=== PATIENT | female | born 1975 | race Caucasian/White ===

== ENCOUNTER → 2016-09-26 | Outpatient (CLI) | payer MEDICARE, OTHER ==
--- NOTE | 2016-09-29 07:22 | MM ---
Reason for exam: additional evaluation requested from prior study. Baseline mammogram. History: Family history of breast cancer in aunt at age 30. Physical Findings: Nurse did not find any significant physical abnormalities on exam. MG 3D Diag Mammo W/Cad GINNA Bilateral CC and MLO view(s) were taken. The breast tissue is heterogeneously dense. This may lower the sensitivity of mammography. There is no discrete abnormality. These results were verbally communicated with the patient and result sheet given to the patient on 09/26/16. ASSESSMENT: Negative, BI-RAD 1 RECOMMENDATION: Routine screening mammogram of both breasts in 1 year. Manage patient on a clinical basis.
== END | disposition home or self-care (01) ==
LOC: RADMAMWWP 12:59
PROVIDERS: ATTEND Family Medicine
DX: N64.52 Nipple discharge (principal)
CPT/HCPCS: G0204; G0279

== ENCOUNTER 2017-01-01 11:35 | Inpatient (IN) | payer MEDICARE, OTHER ==
[2017-01-01] MEDS ORDERED: ACETAMINOPHEN IV (For NPO) 1,000 MG in EMPTY BAG 1 BAG IVPB STA (11:47)
[2017-01-01] MEDS ORDERED: ACETAMINOPHEN TAB 500 MG TAB PO STA (11:54)
[2017-01-01] MEDS ORDERED: ONDANSETRON 4 MG/2 ML VIAL IVP STA (11:55)
--- NOTE | 2017-01-01 11:57 | ED ---
General Adult HPI - General Chief complaint: Nausea/Vomiting/Diarrhea Stated complaint: vomiting, fever, lethargic Time Seen by Provider: 01/01/17 11:46 Source: patient, RN notes reviewed Mode of arrival: ambulatory Limitations: no limitations - History of Present Illness Initial comments: Patient is a 41-year-old female presents emergency room for evaluation. Patient states she's treated for urinary tract infection on 12/19/16 for urinary tract infection. Patient states she went to [facility]. Patient states she was recently placed on Bactrim. Patient states after 2 days of taking Bactrim she received a phone call from the hospital that they were giving her another antibiotic. Patient then states that she began taking Macrobid along with the Bactrim. Patient states she does not think the antibiotics are working. Patient states she's still feeling pressure in her bladder along with pain during urination. Patient states she woke up in the middle of the night abruptly with vomiting. Patient states that she is still continuing to have pressure in her bladder along with bilateral flank pain. Patient states she's been having hot flashes and chills. Patient states she feels like her face is on fire. Patient denies taking anything for fever or symptoms. Patient denies history of abdominal surgeries. Patient denies headache or dizziness. Patient denies chest pain or shortness of breath. Patient does states that she's had a productive cough over the past few weeks. Patient denies throat pain, ear pain , nasal congestion. Patient states she is up-to-date on her immunizations. - Related Data Home Medications Medication Instructions Recorded Confirmed Ibuprofen [Motrin] 800 mg PO Q8HR PRN 05/28/14 01/01/17 Docusate Sodium [Dok] 100 mg PO HS 01/01/17 01/01/17 Garcinia Cambogia 1 tab PO DAILY 01/01/17 01/01/17 Lisinopril [Zestril] 10 mg PO DAILY 01/01/17 01/01/17 Loratadine 10 mg PO DAILY 01/01/17 01/01/17 Mirabegron [Myrbetriq] 50 mg PO DAILY 01/01/17 01/01/17 Mucus Relief 400mg Tab 400 mg PO Q12H 01/01/17 01/01/17 Multivitamins, Thera [Multivitamin 1 tab PO DAILY 01/01/17 01/01/17 (formulary)] Nitrofurantoin Macrocrystal 100 mg PO BID 01/01/17 01/01/17 [Macrodantin] SUMAtriptan SUCCINATE [Imitrex] 100 mg PO Q3H PRN 01/01/17 01/01/17 Sertraline [Zoloft] 50 mg PO DAILY 01/01/17 01/01/17 Sinus Pe 1 tab PO Q4H PRN 01/01/17 01/01/17 Vitamin C/Biotin [Hair, Skin and 1 tab PO DAILY 01/01/17 01/01/17 Nails] Allergies Allergy/AdvReac Type Severity Reaction Status Date / Time cephalexin monohydrate Allergy Unknown Verified 01/01/17 11:59 [From Keflex] codeine Allergy Unknown Verified 01/01/17 11:59 tramadol Allergy Unknown Verified 01/01/17 11:59 Review of Systems ROS Statement: Those systems with pertinent positive or pertinent negative responses have been documented in the HPI. ROS Other: All systems not noted in ROS Statement are negative. Past Medical History Past Medical History: GERD/Reflux Additional Past Medical History / Comment(s): Ventral septal defect, overacitve bladder, sinus issues History of Any Multi-Drug Resistant Organisms: MRSA Date of last positivie culture/infection: 2012 MDRO Source:: buttocks Past Surgical History: No Surgical Hx Reported Past Psychological History: Depression Smoking Status: Never smoker Past Alcohol Use History: Occasional Past Drug Use History: None Reported General Exam - General Exam Comments Initial Comments: sitting in exam room, no acute distress. Limitations: no limitations General appearance: alert, in no apparent distress Head exam: Present: atraumatic, normocephalic, normal inspection Eye exam: Present: normal appearance ENT exam: Present: normal exam Neck exam: Present: normal inspection Respiratory exam: Present: normal lung sounds bilaterally. Absent: respiratory distress Cardiovascular Exam: Present: normal rhythm, tachycardia, normal heart sounds GI/Abdominal exam: Present: soft, normal bowel sounds. Absent: distended, tenderness, guarding, rebound, rigid Extremities exam: Present: normal inspection Back exam: Present: normal inspection Neurological exam: Present: alert, oriented X3, CN II-XII intact, normal gait Psychiatric exam: Present: normal affect, normal mood Skin exam: Present: warm, dry, intact, normal color. Absent: rash Course Vital Signs 01/01/17 01/01/17 11:39 13:43 Temperature 102.1 F H 100.6 F H Pulse Rate 114 H 87 Respiratory 20 18 Rate Blood Pressure 140/95 102/47 O2 Sat by Pulse 96 99 Oximetry EKG Findings - EKG Comments: EKG Findings:: sinus tachycardia, ventricular rate 102 bpm, IL interval 126 ms, QRS duration 88 ms, QT/QTc 354/461 ms Medical Decision Making - Medical Decision Making patient is a 41-year-old female presents emergency room for evaluation of vomiting, fever, bladder discomfort and bilateral flank pain. patient does have an elevated white count. Urinalysis within normal limits. Patient most likely develop pyelonephritis. Case discussed with Dr. Mendez. Dr. Mendez discussed case with Dr. Brito agreed to admit patient. patient initially started on Levaquin. When Dr. Mendez discussed case with Dr. Brito, he recommended Zosyn instead. - Lab Data Result diagrams: 01/01/17 12:15 01/01/17 12:15 Lab Results 01/01/17 01/01/17 01/01/17 Range/Units 12:15 12:15 12:15 WBC 15.1 H (3.8-10.6) k/uL RBC 3.93 (3.80-5.40) m/uL Hgb 12.3 (11.4-16.0) gm/dL Hct 35.7 (34.0-46.0) % MCV 90.8 (80.0-100.0) fL MCH 31.4 (25.0-35.0) pg MCHC 34.5 (31.0-37.0) g/dL RDW 12.7 (11.5-15.5) % Plt Count 364 (150-450) k/uL Neutrophils % 94 % Lymphocytes % 2 % Monocytes % 3 % Eosinophils % 0 % Basophils % 0 % Neutrophils # 14.1 H (1.3-7.7) k/uL Lymphocytes # 0.4 L (1.0-4.8) k/uL Monocytes # 0.5 (0-1.0) k/uL Eosinophils # 0.0 (0-0.7) k/uL Basophils # 0.0 (0-0.2) k/uL PT (9.0-12.0) sec INR (<1.1) APTT (22.0-30.0) sec Sodium 135 L (137-145) mmol/L Potassium 4.0 (3.5-5.1) mmol/L Chloride 102 (98-107) mmol/L Carbon Dioxide 23 (22-30) mmol/L Anion Gap 10 mmol/L BUN 11 (7-17) mg/dL Creatinine 0.70 (0.52-1.04) mg/dL Est GFR (MDRD) Af Amer >60 (>60 ml/min/1.73 sqM) Est GFR (MDRD) Non-Af >60 (>60 ml/min/1.73 sqM) Glucose 118 H (74-99) mg/dL Plasma Lactic Acid Vik (0.7-2.0) mmol/L Calcium 9.1 (8.4-10.2) mg/dL Total Bilirubin 0.8 (0.2-1.3) mg/dL AST 22 (14-36) U/L ALT 30 (9-52) U/L Alkaline Phosphatase 69 (38-126) U/L Total Creatine Kinase 137 H (30-135) U/L CK-MB (CK-2) 1.2 (0.0-2.4) ng/mL CK-MB (CK-2) Rel Index 0.9 Troponin I <0.012 (0.000-0.034) ng/mL Total Protein 6.9 (6.3-8.2) g/dL Albumin 3.6 (3.5-5.0) g/dL Urine Color Urine Appearance (Clear) Urine pH (5.0-8.0) Ur Specific [place] (1.001-1.035) Urine Protein (Negative) Urine Glucose (UA) (Negative) Urine Ketones (Negative) Urine Blood (Negative) Urine Nitrite (Negative) Urine Bilirubin (Negative) Urine Urobilinogen (<2.0) mg/dL Ur Leukocyte Esterase (Negative) Urine HCG, Qual (Not Detectd) Influenza Type A RNA (Not Detectd) Influenza Type B (PCR) (Not Detectd) 01/01/17 01/01/17 01/01/17 Range/Units 12:15 12:15 12:15 WBC (3.8-10.6) k/uL RBC (3.80-5.40) m/uL Hgb (11.4-16.0) gm/dL Hct (34.0-46.0) % MCV (80.0-100.0) fL MCH (25.0-35.0) pg MCHC (31.0-37.0) g/dL RDW (11.5-15.5) % Plt Count (150-450) k/uL Neutrophils % % Lymphocytes % % Monocytes % % Eosinophils % % Basophils % % Neutrophils # (1.3-7.7) k/uL Lymphocytes # (1.0-4.8) k/uL Monocytes # (0-1.0) k/uL Eosinophils # (0-0.7) k/uL Basophils # (0-0.2) k/uL PT 12.1 H (9.0-12.0) sec INR 1.2 (<1.1) APTT 24.9 (22.0-30.0) sec Sodium (137-145) mmol/L Potassium (3.5-5.1) mmol/L Chloride (98-107) mmol/L Carbon Dioxide (22-30) mmol/L Anion Gap mmol/L BUN (7-17) mg/dL Creatinine (0.52-1.04) mg/dL Est GFR (MDRD) Af Amer (>60 ml/min/1.73 sqM) Est GFR (MDRD) Non-Af (>60 ml/min/1.73 sqM) Glucose (74-99) mg/dL Plasma Lactic Acid Vik 1.2 (0.7-2.0) mmol/L Calcium (8.4-10.2) mg/dL Total Bilirubin (0.2-1.3) mg/dL AST (14-36) U/L ALT (9-52) U/L Alkaline Phosphatase (38-126) U/L Total Creatine Kinase (30-135) U/L CK-MB (CK-2) (0.0-2.4) ng/mL CK-MB (CK-2) Rel Index Troponin I (0.000-0.034) ng/mL Total Protein (6.3-8.2) g/dL Albumin (3.5-5.0) g/dL Urine Color Yellow Urine Appearance Clear (Clear) Urine pH 8.0 (5.0-8.0) Ur Specific [place] 1.016 (1.001-1.035) Urine Protein Trace H (Negative) Urine Glucose (UA) Negative (Negative) Urine Ketones Negative (Negative) Urine Blood Negative (Negative) Urine Nitrite Negative (Negative) Urine Bilirubin Negative (Negative) Urine Urobilinogen <2.0 (<2.0) mg/dL Ur Leukocyte Esterase Negative (Negative) Urine HCG, Qual (Not Detectd) Influenza Type A RNA (Not Detectd) Influenza Type B (PCR) (Not Detectd) 01/01/17 01/01/17 Range/Units 12:15 12:24 WBC (3.8-10.6) k/uL RBC (3.80-5.40) m/uL Hgb (11.4-16.0) gm/dL Hct (34.0-46.0) % MCV (80.0-100.0) fL MCH (25.0-35.0) pg MCHC (31.0-37.0) g/dL RDW (11.5-15.5) % Plt Count (150-450) k/uL Neutrophils % % Lymphocytes % % Monocytes % % Eosinophils % % Basophils % % Neutrophils # (1.3-7.7) k/uL Lymphocytes # (1.0-4.8) k/uL Monocytes # (0-1.0) k/uL Eosinophils # (0-0.7) k/uL Basophils # (0-0.2) k/uL PT (9.0-12.0) sec INR (<1.1) APTT (22.0-30.0) sec Sodium (137-145) mmol/L Potassium (3.5-5.1) mmol/L Chloride (98-107) mmol/L Carbon Dioxide (22-30) mmol/L Anion Gap mmol/L BUN (7-17) mg/dL Creatinine (0.52-1.04) mg/dL Est GFR (MDRD) Af Amer (>60 ml/min/1.73 sqM) Est GFR (MDRD) Non-Af (>60 ml/min/1.73 sqM) Glucose (74-99) mg/dL Plasma Lactic Acid Vik (0.7-2.0) mmol/L Calcium (8.4-10.2) mg/dL Total Bilirubin (0.2-1.3) mg/dL AST (14-36) U/L ALT (9-52) U/L Alkaline Phosphatase (38-126) U/L Total Creatine Kinase (30-135) U/L CK-MB (CK-2) (0.0-2.4) ng/mL CK-MB (CK-2) Rel Index Troponin I (0.000-0.034) ng/mL Total Protein (6.3-8.2) g/dL Albumin (3.5-5.0) g/dL Urine Color Urine Appearance (Clear) Urine pH (5.0-8.0) Ur Specific [place] (1.001-1.035) Urine Protein (Negative) Urine Glucose (UA) (Negative) Urine Ketones (Negative) Urine Blood (Negative) Urine Nitrite (Negative) Urine Bilirubin (Negative) Urine Urobilinogen (<2.0) mg/dL Ur Leukocyte Esterase (Negative) Urine HCG, Qual Not Detected (Not Detectd) Influenza Type A RNA Not Detected (Not Detectd) Influenza Type B (PCR) Not Detected (Not Detectd) - Radiology Data Radiology results: report reviewed, image reviewed Disposition Clinical Impression: Pyelonephritis Disposition: ADMITTED IP TO THIS [facility] Condition: Stable Referrals: Augustin Wasserman DO [Primary Care Provider] - 1-2 days Decision Date: 01/01/17
[2017-01-01] MEDS: SODIUM CHLORIDE 0.9% 500 ML IV SCH ×2 (12:22→12:23)
[2017-01-01 12:28] LABS: Appearance,Urine Clear (Clear); Bilirubin,Urine Negative (Negative); Glucose,Urine (UA) Negative (Negative); Ketones,Urine Negative (Negative); Leukocyte Esterase,Urine Negative (Negative); Nitrite,Urine Negative (Negative); Protein,Urine Trace (Negative); Specific Gravity,Urine 1.016 (1.001-1.035); UA Billing (MACRO vs. MICRO) CHEM; Urobilinogen,Urine <2.0 mg/dL (<2.0)
[2017-01-01 12:30] LABS: Basophils % (A) 0 %; CH 31.5; CHCM 34.8; Eosinophils % (A) 0 %; HCT 35.7 % (34.0-46.0); HDW 2.56; HGB 12.3 gm/dL (11.4-16.0); Luc # (Auto) 0.11; Luc % (Auto) 1; Lymphocytes # (A) 0.4 k/uL (1.0-4.8); Lymphocytes % (A) 2 %; MCH 31.4 pg (25.0-35.0); MCHC 34.5 g/dL (31.0-37.0); MCV 90.8 fL (80.0-100.0); Mean Platelet Volume 6.5; Monocytes # (A) 0.5 k/uL (0-1.0); Monocytes % (A) 3 %; Neutrophils # (A) 14.1 k/uL (1.3-7.7); Neutrophils % (A) 94 %; RBC 3.93 m/uL (3.80-5.40); RDW 12.7 % (11.5-15.5); WBC 15.1 k/uL (3.8-10.6); WBC (Perox) 15.58
[2017-01-01 12:39] LABS: ALT 30 U/L (9-52); AST 22 U/L (14-36); Alkaline Phosphatase 69 U/L (38-126); Anion Gap 10 mmol/L; Blood Urea Nitrogen 11 mg/dL (7-17); Calcium 9.1 mg/dL (8.4-10.2); Carbon Dioxide 23 mmol/L (22-30); Chloride 102 mmol/L (98-107); Glucose 118 mg/dL (74-99); Non-African American GFR(MDRD) >60 (>60 ml/min/1.73 sqM); Sodium 135 mmol/L (137-145); Total Bilirubin 0.8 mg/dL (0.2-1.3); Total Protein 6.9 g/dL (6.3-8.2)
[2017-01-01 12:41] LABS: INR 1.2 (<1.1)
[2017-01-01 12:47] LABS: Creatine Kinase 137 U/L (30-135)
[2017-01-01 12:48] LABS: Partial Thromboplastin Time 24.9 sec (22.0-30.0); Prothrombin Time 12.1 sec (9.0-12.0)
[2017-01-01 13:00] LABS: Creatine Kinase MB 1.2 ng/mL (0.0-2.4); Troponin I <0.012 ng/mL (0.000-0.034)
--- NOTE | 2017-01-01 13:16 | XR ---
EXAMINATION TYPE: XR abdomen acute w cxr DATE OF EXAM: 01/01/2017 1:03 PM COMPARISON: 05/28/2014 HISTORY: Abdominal pain TECHNIQUE: 4 views FINDINGS: Heart and mediastinum are normal. Lungs are clear. Bowel gas pattern is normal. There is no sign of i ntestinal obstruction or pneumoperitoneum. Fecal pattern is normal. There is no sign of a mass. There are no pathologic calcifications over the kidneys. IMPRESSION: Nonacute abdomen. Normal chest
[2017-01-01] MEDS ORDERED: LEVOFLOXACIN 500MG-D5W PMX 500 MG in DEXTROSE/WATER 1 100ML.BAG IVPB STA (13:32)
[2017-01-01] MEDS ORDERED: ONDANSETRON 4 MG/2 ML VIAL IVP PRN (13:44)
[2017-01-01] MEDS ORDERED: NALOXONE 0.4 MG/ML 1 ML VIAL IV PRN (13:44)
[2017-01-01] MEDS ORDERED: PIPERACILLIN-TAZOBACTAM 3.375 GM in DEXTROSE/WATER 1 50ML.BAG IVPB STA (13:46)
[2017-01-01] MEDS: SODIUM CHLORIDE 0.9% 1,000 ML IV SCH (14:53)
[2017-01-01] MEDS ORDERED: PSEUDOEPHEDRINE 30 MG TAB PO PRN (21:43)
[2017-01-01] MEDS: ACETAMINOPHEN TAB 325 MG TAB PO PRN (22:17)
[2017-01-01] MEDS: guaiFENesin 600 MG TABLET.ER PO SCH (22:19)
[2017-01-02] MEDS: SODIUM CHLORIDE 0.9% 1,000 ML IV SCH ×3 (01:15→18:34)
[2017-01-02 07:56] LABS: Basophils % (A) 0 %; CH 31.2; CHCM 32.9; Eosinophils # (A) 0.1 k/uL (0-0.7); Eosinophils % (A) 2 %; HCT 34.3 % (34.0-46.0); HDW 2.52; HGB 11.2 gm/dL (11.4-16.0); Luc # (Auto) 0.16; Luc % (Auto) 4; Lymphocytes # (A) 1.3 k/uL (1.0-4.8); Lymphocytes % (A) 33 %; MCH 31.1 pg (25.0-35.0); MCHC 32.6 g/dL (31.0-37.0); MCV 95.3 fL (80.0-100.0); Mean Platelet Volume 6.5; Monocytes # (A) 0.3 k/uL (0-1.0); Monocytes % (A) 8 %; Neutrophils # (A) 2.1 k/uL (1.3-7.7); Neutrophils % (A) 52 %; RDW 12.7 % (11.5-15.5); WBC (Perox) 4.06
[2017-01-02 08:08] LABS: ALT 34 U/L (9-52); AST 34 U/L (14-36); Alkaline Phosphatase 61 U/L (38-126); Anion Gap 5 mmol/L; Blood Urea Nitrogen 12 mg/dL (7-17); Calcium 8.4 mg/dL (8.4-10.2); Carbon Dioxide 28 mmol/L (22-30); Chloride 108 mmol/L (98-107); Glucose 114 mg/dL (74-99); Non-African American GFR(MDRD) >60 (>60 ml/min/1.73 sqM); Potassium 4.3 mmol/L (3.5-5.1); Sodium 141 mmol/L (137-145); Total Bilirubin 0.4 mg/dL (0.2-1.3); Total Protein 6.1 g/dL (6.3-8.2)
[2017-01-02] MEDS ORDERED: SERTRALINE 50 MG TAB PO SCH (09:00)
[2017-01-02] MEDS ORDERED: NITROFURANTOIN MONOHYD/M-CRYST 100 MG CAP PO SCH (09:00)
[2017-01-02] MEDS: PIPERACILLIN-TAZOBACTAM 3.375 GM in DEXTROSE/WATER 1 50ML.BAG IVPB SCH ×2 (09:04→15:59)
[2017-01-02] MEDS: guaiFENesin 600 MG TABLET.ER PO SCH ×2 (09:10→21:04)
[2017-01-02] MEDS: LORATADINE 10 MG TAB PO SCH (09:10)
[2017-01-02] MEDS: LISINOPRIL 10 MG TAB PO SCH (09:10)
[2017-01-02] MEDS: OXYBUTYNIN XL 5 MG TAB.ER.24 PO SCH (09:11)
[2017-01-02] MEDS: SERTRALINE 50 MG TAB PO SCH (09:11)
[2017-01-02] MEDS: SUMAtriptan SUCCINATE 50 MG TAB PO PRN ×2 (09:33→21:07)
[2017-01-02] MEDS: ENOXAPARIN 40 MG/0.4 ML SYRINGE SQ SCH (11:02)
[2017-01-02] MEDS ORDERED: RX INFO: IV CONTRAST WAS GIVEN 1 EACH MISC MISCELLANE PRN (11:12)
[2017-01-02] MEDS: IOHEXOL 350 MG/ML 25 ML BOTTLE (ORAL USE) PO PRN ×2 (12:04→13:10)
[2017-01-02 12:21] LABS: Appearance,Urine Clear (Clear); Bilirubin,Urine Negative (Negative); Glucose,Urine (UA) Negative (Negative); Ketones,Urine Negative (Negative); Leukocyte Esterase,Urine Negative (Negative); Nitrite,Urine Negative (Negative); Protein,Urine Negative (Negative); Specific Gravity,Urine 1.006 (1.001-1.035); UA Billing (MACRO vs. MICRO) CHEM; Urobilinogen,Urine <2.0 mg/dL (<2.0)
[2017-01-02] MEDS ORDERED: LEVOFLOXACIN 500MG-D5W PMX 500 MG in DEXTROSE/WATER 1 100ML.BAG IVPB SCH (14:00)
--- NOTE | 2017-01-02 14:11 | CT ---
EXAMINATION TYPE: CT abdomen pelvis w con DATE OF EXAM: 01/02/2017 1:55 PM HISTORY: abdominal pain with fever and vomiting. CT DLP: 3021.2mGycm Automated Exposure Control for Dose Reduction was Utilized. CONTRAST: CT scan of the abdomen and pelvis is performed with IV Contrast, patient injected with 100 mL of Omni paque 300. COMPARISON: Chest x-ray with acute abdominal series from yesterday. FINDINGS: Poor contrast bolus is seen making evaluation slightly suboptimal. LUNG BASES: Linear scarring or atelectasis in right lung base is present. Slightly elevated right hem idiaphragm is seen. LIVER/GB: No significant abnormality is appreciated. PANCREAS: No significant abnormality is seen. SPLEEN: No significant abnormality is seen. ADRENALS: No significant abnormality is seen. KIDNEYS: No significant abnormality is seen. BOWEL: Oral contrast reaches level of the mid transverse colon. Normal-appearing appendix is seen fro m cecum. There is no suspicious small or large bowel dilatation identified. UTERUS/ADNEXA: Anteverted uterus seen. A 1.7 cm hypodense lesion near cervix favors nabothian cyst on axial image 75. Consider pelvic ultrasound confirmation. Both ovaries are not enlarged. LYMPH NODES: No greater than 1cm abdominal or pelvic lymph nodes are appreciated. There are slightly prominent but subcentimeter lymph nodes throughout the retroperitoneum of the abdomen. For reference left periaortic lymph node measures 9 x 8 mm on axial image 37. OSSEOUS STRUCTURES: Facet arthropathy lower lumbar levels is seen. OTHER: There is small fat-containing right inguinal hernia. IMPRESSION: No bowel obstruction is present. No CT evidence for acute appendicitis. No significant ac sujit finding is seen to account for patient's clinical symptoms.
--- NOTE | 2017-01-02 17:34 | HP ---
DATE OF ADMISSION: 01/01/2017 PRESENTING COMPLAINT: Pressure in the bladder area. HISTORY OF PRESENTING COMPLAINT: This is a 41-year-old patient of Dr. Wasserman. Chronic stable medical conditions include GERD, VSD, overactive bladder, depression, hypertension. Patient being treated for UTI close to 10 days. Initially got a 7 day course of Bactrim and then got 2 days of Macrobid. This was done at [facility]. Patient down to the ER. Patient now presented with severe pain in the kidney area yesterday, urinary frequency and intense pressure in the suprapubic area. Because of failed symptoms on outpatient treatment, the patient decided to come in. Patient did have a fever 102.1 in the ER. REVIEW OF SYSTEMS: CONSTITUTIONAL: Febrile. Weak, tired. HEENT: None. RESPIRATORY: None. CARDIOVASCULAR: None. GASTROINTESTINAL: None. GENITOURINARY: As above. MUSCULOSKELETAL: None. DERMATOLOGIC: None. HEMATOLOGIC: None. LYMPHATICS: None. PSYCHIATRY: None. NEUROLOGICAL: None. On examination, temperature 102.1, pulse 114, respirations 20, blood pressure 140/95, 95% on room air on presentation. GENERAL APPEARANCE: Well built, BMI of 48.1, sitting up, tired -appearing. EYES: Pupils equal. Conjunctivae normal. HEENT: Oral cavity normal. NECK: JVD not raised. Mass not palpable. RESPIRATORY: Effort normal. Lungs are clear. CARDIOVASCULAR: First and second sounds normal. No edema. ABDOMEN: Suprapubic tenderness. Liver and spleen not palpable. LYMPHATIC: No lymph node palpable in neck or axillae. PSYCHIATRY: Alert and oriented x3. Mood and affect normal. NEUROLOGICAL: Pupils equal. Cranial nerves grossly intact. Power and sensation grossly intact. INVESTIGATIONS: White count 15.1, hemoglobin 12.3, potassium 4.0. BUN and creatinine is normal. UA trace protein. Acute abdominal series, nonspecific. ASSESSMENT: 1. This is a patient who presented with failed outpatient treatment for urinary tract infection having urinary tract infection symptoms and also pain in the right flank with sepsis-like picture. Expect the urine to be negative as the patient already has been on antibiotics; hence, patient needs to be changed to IV antibiotics. 2. Morbid obesity, body over 48.1. 3. Gastroesophageal reflux disease. 4. Ventriculoseptal defect, being followed by [facility]. 5. Overactive bladder, chronic. 6. Depression, not otherwise specified. 7. Essential hypertension. PLAN: Since the patient has failed outpatient treatment and septic picture on presentation, patient is put on IV fluids, IV antibiotics and will get ID consultation. Patient needs inpatient stay at least 2 days given the sepsis picture on presentation and having failed outpatient treatment.
[2017-01-02] MEDS ORDERED: DOCUSATE 100 MG CAP PO SCH (21:00)
[2017-01-03] MEDS: PIPERACILLIN-TAZOBACTAM 3.375 GM in DEXTROSE/WATER 1 50ML.BAG IVPB SCH ×3 (00:05→14:01)
[2017-01-03] MEDS ORDERED: SODIUM CHLORIDE 0.9% 1,000 ML BAG ONE (03:50)
[2017-01-03] MEDS: ACETAMINOPHEN TAB 325 MG TAB PO PRN (08:49)
[2017-01-03] MEDS: LORATADINE 10 MG TAB PO SCH (08:51)
[2017-01-03] MEDS: ENOXAPARIN 40 MG/0.4 ML SYRINGE SQ SCH (08:51)
[2017-01-03] MEDS: LISINOPRIL 10 MG TAB PO SCH (08:51)
[2017-01-03] MEDS: SERTRALINE 50 MG TAB PO SCH (08:52)
[2017-01-03] MEDS: OXYBUTYNIN XL 5 MG TAB.ER.24 PO SCH (08:52)
--- NOTE | 2017-01-03 12:03 | CONS ---
DATE OF CONSULTATION: DATE OF SERVICE: 01/02/2017 REASON FOR CONSULTATION: Fever and urinary tract infection. HISTORY OF PRESENT ILLNESS: The patient is a 41-year-old female with history of recurrent UTI. Apparently the patient was just at [facility] on 12/19 for upper respiratory tract infection. She was initiated with Bactrim DS, however, apparently a few days later the patient was called and antibiotic was switch over to Macrobid. The patient is complaining of pressure in the bladder area with some urinary frequency and burning, but denies any hematuria. She also has been complaining of like something is stabbing in both kidneys, as she is referring to her flank area. She woke up this morning and was having vomiting with fever and chills. For these symptoms, the patient presented to the [facility] ER. In the ER, patient with fever of 102.1 degrees Fahrenheit. The patient did have elevated white count of 15.1, though liver enzymes were normal. Her UA was negative. Influenza A and B PCR were negative. The patient did have acute abdominal series that was reported to be negative. Patient was treated with piperacillin tazobactam and Levaquin. I was asked to see the patient for further recommendation regarding antibiotic therapy. REVIEW OF SYSTEMS: CONSTITUTIONAL: Positive for weakness along with fever. EYES: No complaint. ENT: No complaint. RESPIRATORY: No complaint. CARDIOVASCULAR: No complaint. GENITOURINARY: As per HPI. GASTROINTESTINAL: As per HPI. MUSCULOSKELETAL: No complaint. INTEGUMENTARY: No complaint. PSYCHOLOGICAL: No complaint. ENDOCRINE: No complaint. NEUROLOGIC: No complaint. Past medical history is significant for recurrent UTI, gastroesophageal reflux disease, ventral septal defect, overactive bladder and MRSA infection, depression. PAST SURGICAL HISTORY: No major surgery. SOCIAL HISTORY: No history of smoking. Occasionally drinks. No drug use. FAMILY HISTORY: No pertinent findings noticed. Allergic to CEPHALEXIN, CODEINE and TRAMADOL with rash. Although the patient tolerated Zosyn with no problem. Medications include the patient is currently on Tylenol, Colace, Lovenox, Mucinex, Zestril, Claritin, Narcan, Zofran, piperacillin tazobactam, Sudafed, Zoloft, Imitrex. On examination, blood pressure is 123/71 with pulse of 76, temperature 97.9. She is 97% on room air. General description is a middle-age female up in the bed in no distress. No tachypnea or accessory muscles of respiration use. HEENT EXAMINATION: No pallor or scleral icterus. Oral mucous membrane is dry. NECK: Trachea central. No thyromegaly. LUNGS: Unlabored breathing. Clear to auscultation anteriorly. No wheeze or crackles. HEART: S1, S2. Regular rate and rhythm. ABDOMEN: Soft, no tenderness. No CVA tenderness was noticed. EXTREMITIES: No edema of feet. SKIN EXAMINATION: No rash or mass palpable. NEUROLOGICAL: The patient is awake, alert, oriented x3. Mood and affect normal. LABS: Hemoglobin 12.3, white count on admission was 15.1, down to 4.0 today with a BUN 12, creatinine 0.72. Electrolytes have been normal. Liver enzymes are normal. UA was significantly positive. Influenza A and B PCR are negative. Chest x-ray and acute abdominal series are negative. DIAGNOSTIC IMPRESSION AND PLAN: Patient admitted to hospital with fevers with nausea and vomiting and urinary symptoms in a patient who has been treated recently as an outpatient; had both Bactrim and Macrobid therapy. The patient did have an elevated white count, however, UA was not significantly positive. Question of partially treated UA with antibiotic therapy as an outpatient as patient had no other clinical focus of infection. Her chest x-ray is reported to be negative. With symptoms of vomiting, will make sure there is no other intra-abdominal pathology that be responsible for her fever and elevated white count. PLAN: 1. Will try to repeat a UA and a culture. 2. Will check CT abdomen and pelvis to make sure no evidence of any intra-abdominal pathology. 3. The patient will continue with Zosyn, however, will discontinue the Levaquin. 4. Will follow up on the clinical condition and investigations further and adjust medications if needed. Thank you for this consultation. We will follow this patient along with you. LAMIN
[2017-01-03 14:56] VITALS: TEMP 97.8
[2017-01-03] MEDS: guaiFENesin 600 MG TABLET.ER PO SCH (17:57)
--- NOTE | 2017-01-03 18:10 | PN ---
DATE OF SERVICE: 01/03/2017 REASON FOR FOLLOWUP: Fever with question of UTI and pyelonephritis. INTERVAL HISTORY: The patient is afebrile. She is currently breathing comfortably. The patient denies significant chest pain or cough. No further nausea or vomiting. No abdominal pain. No diarrhea. Still complaining of some urinary symptoms, though. On examination, blood pressure is 124/64 with a pulse of 75, temperature 97.1. She is 98% on room air. General description is a middle-aged female up in the bed in no distress. RESPIRATORY SYSTEM: Unlabored breathing. Clear to auscultation anteriorly. HEART: S1, S2. Regular rate and rhythm. ABDOMEN: Soft. No tenderness. LABS: No new labs have been obtained today. She did have a follow-up urine that was negative. CT of abdomen and pelvis has been reported to be negative. DIAGNOSTIC IMPRESSION AND PLAN: Patient admitted to hospital with a fever, nausea, vomiting, and did have pressure on urination in a patient who has been recently evaluated at [facility] ER, where the patient did have a UA done for suspected UTI and was treated with Bactrim; however, after the cultures were back she was called in and was started on nitrofuratoin. I did review the cultures from [facility], and those were E coli with sensitive pathogen sensitive to ciprofloxacin. Patient presented to hospital with nausea and vomiting, questionably related to Macrobid. Here the patient did have an extensive workup to look for any other source of the fever, and that has been negative. Yet the patient's culture remains negative. Will recommend giving a short course of oral Cipro to finish treatment for her previous episode or UTI. The urine culture is negative here, more likely because the patient was already on antibiotic as an outpatient.
[2017-01-03 18:37] VITALS: BP 124/75; PULSE 66; RESP 16
--- NOTE | 2017-01-04 14:11 | DS ---
DATE OF ADMISSION: 01/01/2017 DATE OF DISCHARGE: 01/03/2017 FINAL DIAGNOSES: 1. Acute urinary tract infection with possible pyelonephritis with sepsis-like picture, present on admission. 2. Morbid obesity, body mass index of 48.1. 3. Gastroesophageal reflux disease. 4. Ventriculoseptal defect being followed by Cardiology. 5. Overactive bladder, chronic. 6. Depression, not otherwise specified. 7. Essential hypertension. CONSULTATION: Dr. Mccann from Infectious Disease. HOSPITAL COURSE: The is a patient who took a course of antibiotics, failed outpatient treatment, presented with sepsis-like picture. Urine cultures from [facility] did come back showing E. coli. Patient was doing rather well. Fever had subsequently subsided. Patient is tolerating a diet. Up and about and patient's white count also had normalized; hence, patient is being discharged. On exam, abdomen soft, nontender. Care was discussed in detail with the patient. DISCHARGE MEDICATIONS: 1. Motrin 800 mg q.8 p.r.n. 2. Colace 100 mg p.o. q.h.s. 3. Zestril 10 mg p.o. daily. 4. Claritin 10 mg daily. 5. Myrbetriq 50 mg p.o. daily. 6. Multivitamin 1 tablet p.o. daily. 7. Imitrex 100 mg q.3 p.r.n. 8. Zoloft 50 mg p.o. daily. 9. Vitamin C 1 tablet p.o. daily. 10. Augmentin 875 one tablet p.o. q.12 fourteen tablets. Follow up with Dr. Wasserman in 1 week. DC planning more than 35 minutes.
== END 2017-01-03 18:45 | disposition home or self-care (01) | DRG 872 ==
LOC: EC 11:35 → 6PED 13:42
PROVIDERS: ADMIT Hospitalist; ATTEND Hospitalist
DX: A41.51 Sepsis due to Escherichia coli [E. coli] (principal); Q21.0 Ventricular septal defect; N10 Acute pyelonephritis; Z68.42 Body mass index [BMI] 45.0-49.9, adult; I10 Essential (primary) hypertension; E66.01 Morbid (severe) obesity due to excess calories; N32.81 Overactive bladder; R53.1 Weakness; R35.0 Frequency of micturition; J02.9 Acute pharyngitis, unspecified; R05 Cough; R11.2 Nausea with vomiting, unspecified; F32.9 Major depressive disorder, single episode, unspecified; K21.9 Gastro-esophageal reflux disease without esophagitis; Z88.1 Allergy status to other antibiotic agents; Z88.5 Allergy status to narcotic agent; Z86.14 Personal history of Methicillin resistant Staphylococcus aureus infection; Z87.09 Personal history of other diseases of the respiratory system; Z86.19 Personal history of other infectious and parasitic diseases; Z87.440 Personal history of urinary (tract) infections; Z79.2 Long term (current) use of antibiotics; Z79.1 Long term (current) use of non-steroidal anti-inflammatories (NSAID); Z79.899 Other long term (current) drug therapy
CPT/HCPCS: 36415; 74022; 74177; 80053; 81003; 81025; 82550; 82553; 83605; 84484; 85025; 85610; 85730; 87040; 87086; 87502; 93005; 94760; 96361; 96365; 96375; 99285

== ENCOUNTER 2017-02-21 13:23 | Emergency (ER) | payer MEDICARE, OTHER ==
[2017-02-21 13:37] VITALS: RESP 18
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
--- NOTE | 2017-02-21 14:06 | XR ---
EXAMINATION TYPE: XR Hip Complete RT DATE OF EXAM: 02/21/2017 COMPARISON: NONE HISTORY: Fall TECHNIQUE: 2 views FINDINGS: I see no fracture nor dislocation. Hip joint space is fairly normal. Sacroiliac joint appea rs normal. IMPRESSION: Negative right hip exam.
--- NOTE | 2017-02-21 14:07 | XR ---
EXAMINATION TYPE: XR ankle complete RT DATE OF EXAM: 02/21/2017 COMPARISON: 06/19/2011 HISTORY: Pain TECHNIQUE: 3 views FINDINGS: I see no fracture nor dislocation. Ankle mortise is anatomic. Joint spaces are normal. IMPRESSION: Negative right ankle exam. No change.
--- NOTE | 2017-02-21 14:08 | XR ---
EXAMINATION TYPE: XR knee complete RT DATE OF EXAM: 02/21/2017 COMPARISON: NONE HISTORY: Pain TECHNIQUE: 3 views FINDINGS: I see no fracture nor dislocation. Joint spaces are normal. There is no sign of joint effus ion. IMPRESSION: Negative right knee exam.
[2017-02-21] MEDS ORDERED: MORPHINE SULFATE 4 MG/ML SYRINGE IVP STA (14:20)
[2017-02-21] MEDS ORDERED: KETOROLAC 30 MG/ML 1 ML VIAL IVP STA (14:20)
[2017-02-21 15:00] VITALS: BP 128/68; PULSE 69; TEMP 97.6
== END 2017-02-21 15:00 | disposition home or self-care (01) ==
LOC: EC 13:23
DX: S80.01XA Contusion of right knee, initial encounter (principal); F32.9 Major depressive disorder, single episode, unspecified; Z88.1 Allergy status to other antibiotic agents; Z88.5 Allergy status to narcotic agent; Z88.6 Allergy status to analgesic agent; Z79.899 Other long term (current) drug therapy; V18.4XXA Pedal cycle driver injured in noncollision transport accident in traffic accident, initial encounter; Y92.410 Unspecified street and highway as the place of occurrence of the external cause
CPT/HCPCS: 99284; 96374; 73502; 73562; 73610; J2270

== ENCOUNTER 2017-06-13 00:19 | Emergency (ER) | payer MEDICARE, OTHER ==
[2017-06-13] MEDS ORDERED: HYOSCYAMINE SULFATE 0.375 MG TAB.ER.12H PO STA (01:02)
[2017-06-13] MEDS ORDERED: METOCLOPRAMIDE 5 MG/ML 2 ML VIAL IVP STA (01:02)
[2017-06-13] MEDS ORDERED: SODIUM CHLORIDE 0.9% 1,000 ML IV STA (01:02)
--- NOTE | 2017-06-13 01:04 | ED ---
Abdominal Pain HPI - General Chief Complaint: Abdominal Pain Stated Complaint: Gastric Pain Time Seen by Provider: 06/13/17 00:57 Source: patient, RN notes reviewed Mode of arrival: wheelchair Limitations: no limitations - History of Present Illness Initial Comments: 41-year-old female presents emergency Department chief complaint abdominal pain. Patient states she feels pain in the mid abdomen. She states is nonradiating but she does have some diffuse gassy feeling. Patient does mention some nausea but denies vomiting, diarrhea constipation of the usual. She does complain of some urinary frequency and dysuria. Patient denies fever, chills, chest pain, shortness breath, headache, dizziness. She states that she did eat some steak and sauerkraut shortly before symptoms started. She tried some Tums with no relief. - Related Data Home Medications Medication Instructions Recorded Confirmed Ibuprofen [Motrin] 800 mg PO Q8HR PRN 05/28/14 06/13/17 Docusate Sodium [Dok] 100 mg PO HS 01/01/17 06/13/17 Garcinia Cambogia 1 tab PO DAILY 01/01/17 06/13/17 Lisinopril [Zestril] 10 mg PO DAILY 01/01/17 06/13/17 Loratadine 10 mg PO DAILY 01/01/17 06/13/17 Mirabegron [Myrbetriq] 50 mg PO DAILY 01/01/17 06/13/17 Mucus Relief 400mg Tab 400 mg PO Q12H 01/01/17 06/13/17 Multivitamins, Thera [Multivitamin 1 tab PO DAILY 01/01/17 06/13/17 (formulary)] SUMAtriptan SUCCINATE [Imitrex] 100 mg PO Q3H PRN 01/01/17 06/13/17 Sertraline [Zoloft] 50 mg PO DAILY 01/01/17 06/13/17 Sinus Pe 1 tab PO Q4H PRN 01/01/17 06/13/17 Vitamin C/Biotin [Hair, Skin and 1 tab PO DAILY 01/01/17 06/13/17 Nails] Previous Rx's Medication Instructions Recorded Ciprofloxacin HCl [Cipro] 500 mg PO Q12HR #10 tablet 06/13/17 Allergies Allergy/AdvReac Type Severity Reaction Status Date / Time cephalexin monohydrate Allergy Unknown Verified 06/13/17 00:35 [From Keflex] codeine Allergy Unknown Verified 06/13/17 00:35 tramadol Allergy Unknown Verified 06/13/17 00:35 Review of Systems ROS Statement: Those systems with pertinent positive or pertinent negative responses have been documented in the HPI. ROS Other: All systems not noted in ROS Statement are negative. Past Medical History Past Medical History: GERD/Reflux Additional Past Medical History / Comment(s): Ventral septal defect, overacitve bladder, sinus issues History of Any Multi-Drug Resistant Organisms: MRSA Date of last positivie culture/infection: 2012 MDRO Source:: buttocks Past Surgical History: No Surgical Hx Reported Past Psychological History: Depression Smoking Status: Never smoker Past Alcohol Use History: Occasional Past Drug Use History: None Reported - Past Family History Mother Family Medical History: GERD/Reflux General Exam Limitations: no limitations General appearance: alert, in no apparent distress Head exam: Present: atraumatic, normocephalic, normal inspection Respiratory exam: Present: normal lung sounds bilaterally. Absent: respiratory distress, wheezes, rales, rhonchi, stridor Cardiovascular Exam: Present: regular rate, normal rhythm, normal heart sounds. Absent: systolic murmur, diastolic murmur, rubs, gallop, clicks GI/Abdominal exam: Present: soft, tenderness (mild epigastric to mid abdominal tenderness), normal bowel sounds. Absent: distended, guarding, rebound, rigid Back exam: Absent: CVA tenderness (R), CVA tenderness (L) Neurological exam: Present: alert, oriented X3, CN II-XII intact Skin exam: Present: warm, dry, intact, normal color. Absent: rash Course Vital Signs 06/13/17 06/13/17 00:32 02:06 Temperature 98.6 F 97.8 F Pulse Rate 73 77 Respiratory 16 18 Rate Blood Pressure 179/96 166/74 O2 Sat by Pulse 100 100 Oximetry Medical Decision Making - Medical Decision Making 41-year-old female presented for abdominal pain. Patient's lab work is unremarkable urinalysis does show 8 white cells and she is symptomatic patient be treated until culture which is pending. Patient's x-ray shows a moderate amount of stool consistent with constipation most likely leading to her abdominal discomfort at this time. Patient be discharged on ciprofloxacin advised take [id number] stool softeners laxatives. Return parameters were discussed. - Lab Data Result diagrams: 06/13/17 02:00 06/13/17 02:00 Lab Results 06/13/17 06/13/17 06/13/17 Range/Units 02:00 02:00 02:05 WBC 7.4 (3.8-10.6) k/uL RBC 4.39 (3.80-5.40) m/uL Hgb 13.2 (11.4-16.0) gm/dL Hct 41.1 (34.0-46.0) % MCV 93.6 (80.0-100.0) fL MCH 30.1 (25.0-35.0) pg MCHC 32.1 (31.0-37.0) g/dL RDW 13.7 (11.5-15.5) % Plt Count 317 (150-450) k/uL Neutrophils % 72 % Lymphocytes % 20 % Monocytes % 6 % Eosinophils % 1 % Basophils % 0 % Neutrophils # 5.3 (1.3-7.7) k/uL Lymphocytes # 1.5 (1.0-4.8) k/uL Monocytes # 0.4 (0-1.0) k/uL Eosinophils # 0.1 (0-0.7) k/uL Basophils # 0.0 (0-0.2) k/uL Sodium 136 L (137-145) mmol/L Potassium 5.4 H (3.5-5.1) mmol/L Chloride 107 (98-107) mmol/L Carbon Dioxide 21 L (22-30) mmol/L Anion Gap 8 mmol/L BUN 18 H (7-17) mg/dL Creatinine 0.60 (0.52-1.04) mg/dL Est GFR (MDRD) Af Amer >60 (>60 ml/min/1.73 sqM) Est GFR (MDRD) Non-Af >60 (>60 ml/min/1.73 sqM) Glucose 128 H (74-99) mg/dL Calcium 9.3 (8.4-10.2) mg/dL Total Bilirubin 0.6 (0.2-1.3) mg/dL AST 27 (14-36) U/L ALT 27 (9-52) U/L Alkaline Phosphatase 62 (38-126) U/L Total Protein 6.9 (6.3-8.2) g/dL Albumin 3.6 (3.5-5.0) g/dL Amylase 30 (30-110) U/L Lipase 96 (23-300) U/L Urine Color Urine Appearance (Clear) Urine pH (5.0-8.0) Ur Specific [place] (1.001-1.035) Urine Protein (Negative) Urine Glucose (UA) (Negative) Urine Ketones (Negative) Urine Blood (Negative) Urine Nitrite (Negative) Urine Bilirubin (Negative) Urine Urobilinogen (<2.0) mg/dL Ur Leukocyte Esterase (Negative) Urine RBC (0-5) /hpf Urine WBC (0-5) /hpf Ur Squamous Epith Cells (0-4) /hpf Urine Bacteria (None) /hpf Urine Mucus (None) /hpf Urine HCG, Qual Not Detected (Not Detectd) 06/13/17 Range/Units 02:05 WBC (3.8-10.6) k/uL RBC (3.80-5.40) m/uL Hgb (11.4-16.0) gm/dL Hct (34.0-46.0) % MCV (80.0-100.0) fL MCH (25.0-35.0) pg MCHC (31.0-37.0) g/dL RDW (11.5-15.5) % Plt Count (150-450) k/uL Neutrophils % % Lymphocytes % % Monocytes % % Eosinophils % % Basophils % % Neutrophils # (1.3-7.7) k/uL Lymphocytes # (1.0-4.8) k/uL Monocytes # (0-1.0) k/uL Eosinophils # (0-0.7) k/uL Basophils # (0-0.2) k/uL Sodium (137-145) mmol/L Potassium (3.5-5.1) mmol/L Chloride (98-107) mmol/L Carbon Dioxide (22-30) mmol/L Anion Gap mmol/L BUN (7-17) mg/dL Creatinine (0.52-1.04) mg/dL Est GFR (MDRD) Af Amer (>60 ml/min/1.73 sqM) Est GFR (MDRD) Non-Af (>60 ml/min/1.73 sqM) Glucose (74-99) mg/dL Calcium (8.4-10.2) mg/dL Total Bilirubin (0.2-1.3) mg/dL AST (14-36) U/L ALT (9-52) U/L Alkaline Phosphatase (38-126) U/L Total Protein (6.3-8.2) g/dL Albumin (3.5-5.0) g/dL Amylase (30-110) U/L Lipase (23-300) U/L Urine Color Yellow Urine Appearance Cloudy H (Clear) Urine pH 7.0 (5.0-8.0) Ur Specific [place] 1.018 (1.001-1.035) Urine Protein Negative (Negative) Urine Glucose (UA) Negative (Negative) Urine Ketones Negative (Negative) Urine Blood Negative (Negative) Urine Nitrite Negative (Negative) Urine Bilirubin Negative (Negative) Urine Urobilinogen <2.0 (<2.0) mg/dL Ur Leukocyte Esterase Small H (Negative) Urine RBC 1 (0-5) /hpf Urine WBC 8 H (0-5) /hpf Ur Squamous Epith Cells 2 (0-4) /hpf Urine Bacteria Few H (None) /hpf Urine Mucus Rare H (None) /hpf Urine HCG, Qual (Not Detectd) Disposition Clinical Impression: Constipation, Abdominal pain, UTI (urinary tract infection) Disposition: HOME SELF-CARE Condition: Stable Instructions: Constipation (ED) Additional Instructions: Please return to the Emergency Department if symptoms worsen or any other concerns. Prescriptions: Ciprofloxacin HCl [Cipro] 500 mg PO Q12HR #10 tablet Referrals: Augustin Wasserman DO [Primary Care Provider] - 1-2 days Time of Disposition: 02:54
[2017-06-13 02:07] VITALS: RESP 18; TEMP 97.8
[2017-06-13 02:25] LABS: ALT 27 U/L (9-52); AST 27 U/L (14-36); Alkaline Phosphatase 62 U/L (38-126); Amylase 30 U/L (30-110); Anion Gap 8 mmol/L; Blood Urea Nitrogen 18 mg/dL (7-17); Calcium 9.3 mg/dL (8.4-10.2); Carbon Dioxide 21 mmol/L (22-30); Chloride 107 mmol/L (98-107); Glucose 128 mg/dL (74-99); Non-African American GFR(MDRD) >60 (>60 ml/min/1.73 sqM); Sodium 136 mmol/L (137-145); Total Bilirubin 0.6 mg/dL (0.2-1.3); Total Protein 6.9 g/dL (6.3-8.2)
[2017-06-13 02:26] LABS: Potassium 5.4 mmol/L (3.5-5.1)
[2017-06-13 02:48] LABS: Basophils % (A) 0 %; CH 32.1; CHCM 34.5; Eosinophils # (A) 0.1 k/uL (0-0.7); Eosinophils % (A) 1 %; HCT 41.1 % (34.0-46.0); HDW 2.39; HGB 13.2 gm/dL (11.4-16.0); Luc # (Auto) 0.06; Luc % (Auto) 1; Lymphocytes # (A) 1.5 k/uL (1.0-4.8); Lymphocytes % (A) 20 %; MCH 30.1 pg (25.0-35.0); MCHC 32.1 g/dL (31.0-37.0); MCV 93.6 fL (80.0-100.0); Mean Platelet Volume 7.2; Monocytes # (A) 0.4 k/uL (0-1.0); Monocytes % (A) 6 %; Neutrophils # (A) 5.3 k/uL (1.3-7.7); Neutrophils % (A) 72 %; RBC 4.39 m/uL (3.80-5.40); RDW 13.7 % (11.5-15.5); WBC 7.4 k/uL (3.8-10.6); WBC (Perox) 7.47
[2017-06-13 02:50] LABS: Appearance,Urine Cloudy (Clear); Bacteria,Urine Few /hpf; Bilirubin,Urine Negative (Negative); Glucose,Urine (UA) Negative (Negative); Ketones,Urine Negative (Negative); Leukocyte Esterase,Urine Small (Negative); Mucus,Urine Rare /hpf; Nitrite,Urine Negative (Negative); Particle Count 3211; Protein,Urine Negative (Negative); RBC,Urine 1 /hpf (0-5); Specific Gravity,Urine 1.018 (1.001-1.035); Squamous Epithelial Cell,Urine 2 /hpf (0-4); UA Billing (MACRO vs. MICRO) MICRO; Urobilinogen,Urine <2.0 mg/dL (<2.0); WBC,Urine 8 /hpf (0-5)
[2017-06-13] MEDS ORDERED: CIPROFLOXACIN HCL 500 MG TAB PO STA (02:52)
--- NOTE | 2017-06-13 03:22 | XR ---
EXAM: XR Abdomen, 2 View CLINICAL HISTORY: Reason: abdominal pain TECHNIQUE: Frontal supine and upright views of the abdomen/pelvis. COMPARISON: No relevant prior studies available. FINDINGS: Gastrointestinal tract: Increased fecal burden. No free air. No small bowel dilation. Bones/joints: Unremarkable. IMPRESSION: Increased fecal burden, correlate with history of constipation. No free air. No radiographic evidence for small bowel obstruction.
[2017-06-13 03:32] VITALS: BP 147/74; PULSE 72
== END 2017-06-13 03:38 | disposition home or self-care (01) ==
LOC: EC 00:19
DX: K59.00 Constipation, unspecified (principal); N39.0 Urinary tract infection, site not specified; R10.13 Epigastric pain; K21.9 Gastro-esophageal reflux disease without esophagitis; F32.9 Major depressive disorder, single episode, unspecified; Z86.14 Personal history of Methicillin resistant Staphylococcus aureus infection; Z79.899 Other long term (current) drug therapy; Z88.1 Allergy status to other antibiotic agents; Z88.5 Allergy status to narcotic agent; Z88.6 Allergy status to analgesic agent
CPT/HCPCS: 36415; 80053; 82150; 83690; 85025; 81001; 81025; 87086; 87077; 87186; 74000; 99284; 96374; 96361 ×2; J2765

== ENCOUNTER → 2017-09-27 | Outpatient (CLI) | payer MEDICARE, OTHER ==
--- NOTE | 2017-09-27 14:52 | XR ---
EXAMINATION TYPE: XR knee limited RT DATE OF EXAM: 09/27/2017 CLINICAL HISTORY: Right knee pain after slip and fall injury. Pain is greater medially than laterally . TECHNIQUE: Three views of the right knee are obtained. COMPARISON: None. FINDINGS: There is no acute fracture/dislocation evident in right knee. The there is mild medial co mpartment joint space narrowing and tibial plateau sclerosis.. The overlying soft tissue appears unr emarkable. No suprapatellar joint effusion. No focal soft tissue swelling. IMPRESSION: There is no acute fracture or dislocation in the right knee. Mild medial compartment art hropathy.
== END | disposition home or self-care (01) ==
LOC: RADXRMAIN 13:59
PROVIDERS: ATTEND Family Medicine
DX: M12.861 Other specific arthropathies, not elsewhere classified, right knee (principal)

== ENCOUNTER → 2018-01-24 | Outpatient (CLI) | payer MEDICARE, OTHER ==
--- NOTE | 2018-01-25 07:44 | CT ---
EXAMINATION TYPE: CT brain wo con DATE OF EXAM: 01/24/2018 COMPARISON: NONE INDICATION: Dizziness with near syncope DLP: 1046 mGycm, Automated exposure control for dose reduction was used. CONTRAST: None CT of the brain is performed utilizing 3 mm thick sections through the posterior fossa and 3 mm thick sections through the remaining calvarium. Study is performed within 24 hours of arrival to the hosp ital. No abnormal hyperdensity is present to suggest an acute intracranial hemorrhage. No mass lesion is evident. No acute infarcts are evident. Ventricles and sulci are appropriate for the patient age. Paranasal sinuses and mastoid air cells within the [id number] are clear. IMPRESSIONS: 1. Normal CT Brain
== END | disposition home or self-care (01) ==
LOC: RADCTMAIN 19:03
PROVIDERS: ATTEND Internal Medicine
DX: R55 Syncope and collapse (principal); Z88.5 Allergy status to narcotic agent; Z88.6 Allergy status to analgesic agent
CPT/HCPCS: 70450

== ENCOUNTER 2020-02-28 10:37 | Emergency (ER) | payer MEDICARE, OTHER ==
[2020-02-28 10:48] VITALS: PULSE 79; RESP 18
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
--- NOTE | 2020-02-28 11:37 | XR ---
EXAMINATION TYPE: XR knee complete RT DATE OF EXAM: 02/28/2020 CLINICAL HISTORY: pain TECHNIQUE: Three views of the right knee are obtained. COMPARISON: None. FINDINGS: There is no acute fracture/dislocation. The tri-compartment joint spaces appear within no rmal limits. The overlying soft tissue appears unremarkable. IMPRESSION: There is no acute fracture or dislocation.ICD 10 NO FRACTURE, INITIAL EVALUATION
[2020-02-28] MEDS ORDERED: KETOROLAC 60 MG/2 ML VIAL IM STA (11:47)
[2020-02-28] MEDS ORDERED: DIPH,PERTUS(ACELL)TETVAC-LF 0.5 ML VIAL IM ONE (11:47)
[2020-02-28 12:18] VITALS: BP 168/74; TEMP 98
== END 2020-02-28 12:16 | disposition home or self-care (01) ==
LOC: EC 10:37
DX: S80.211A Abrasion, right knee, initial encounter (principal); I10 Essential (primary) hypertension; Z79.899 Other long term (current) drug therapy; Z23 Encounter for immunization; Z88.1 Allergy status to other antibiotic agents; Z88.5 Allergy status to narcotic agent; Z86.14 Personal history of Methicillin resistant Staphylococcus aureus infection; W01.0XXA Fall on same level from slipping, tripping and stumbling without subsequent striking against object, initial encounter; Y92.512 Supermarket, store or market as the place of occurrence of the external cause
CPT/HCPCS: 73562; 90715; 90471; 96372; 99283; J1885

== ENCOUNTER 2020-04-14 01:22 | Emergency (ER) | payer MEDICARE, OTHER ==
[2020-04-14 01:26] VITALS: RESP 19
[2020-04-14] MEDS: SODIUM CHLORIDE 0.9% 500 ML 500 ML IV SCH ×2 (01:48→05:08)
[2020-04-14] MEDS ORDERED: ACETAMINOPHEN TAB 325 MG TAB PO STA (01:49)
[2020-04-14 01:55] LABS: Basophils % (A) 0 %; Eosinophils # (A) 0.1 k/uL (0-0.7); Eosinophils % (A) 1 %; HCT 38.5 % (34.0-46.0); HGB 12.7 gm/dL (11.4-16.0); Lymphocytes # (A) 0.4 k/uL (1.0-4.8); Lymphocytes % (A) 4 %; MCH 29.6 pg (25.0-35.0); MCV 89.7 fL (80.0-100.0); Mean Platelet Volume 6.7; Monocytes # (A) 0.4 k/uL (0-1.0); Monocytes % (A) 4 %; Neutrophils # (A) 10.2 k/uL (1.3-7.7); Neutrophils % (A) 91 %; Platelet Count 317 k/uL (150-450); RBC 4.29 m/uL (3.80-5.40); RDW 12.6 % (11.5-15.5); WBC 11.2 k/uL (3.8-10.6)
--- NOTE | 2020-04-14 02:04 | ED ---
Fever HPI - General Chief Complaint: Fever Stated Complaint: Fever Time Seen by Provider: 04/14/20 01:25 Source: patient Mode of arrival: EMS Limitations: no limitations - History of Present Illness Initial Comments: Brian is a 44-year-old female who presents the ER today via ambulance for evaluation of fevers, chills, body aches for 1 day duration. Patient reports that last week she was treated for urinary tract infection. Her dysuria has improved but she still having frequency. She does have a history of pyelonephritis in the past. She states that today she is experiencing fevers, chills, body aches, nausea and a single episode of nonbloody nonbilious emesis. Patient reports she didn't have any medications at home so she called the ambulance to come to the hospital. Patient denies any known contacts with anyone who has COVID 19 however she has been in public for grocery shopping and didn't attend a birthday libertarian last week. - Related Data Home Medications Medication Instructions Recorded Confirmed lisinopriL [Zestril] 10 mg PO DAILY 01/01/17 02/28/20 HYDROcodone/APAP 7.5-325MG [[place] 1 tab PO DAILY PRN 02/28/20 02/28/20 7.5-325] SUMAtriptan succinate [Imitrex] 50 mg PO DAILY PRN 02/28/20 02/28/20 Sulfamethox-Tmp 800-160Mg [Bactrim 1 tab PO Q12H 02/28/20 02/28/20 DS 800-160 mg] Allergies Allergy/AdvReac Type Severity Reaction Status Date / Time cephalexin monohydrate Allergy Unknown Verified 02/28/20 11:12 [From Keflex] codeine Allergy Unknown Verified 02/28/20 11:12 tramadol Allergy Unknown Verified 02/28/20 11:12 Review of Systems ROS Statement: Those systems with pertinent positive or pertinent negative responses have been documented in the HPI. ROS Other: All systems not noted in ROS Statement are negative. Past Medical History Past Medical History: Asthma, GERD/Reflux, Hypertension Additional Past Medical History / Comment(s): Ventral septal defect, overacitve bladder, sinus issues History of Any Multi-Drug Resistant Organisms: MRSA Date of last positivie culture/infection: 2012 MDRO Source:: buttocks Past Surgical History: No Surgical Hx Reported Past Psychological History: Depression Smoking Status: Never smoker Past Alcohol Use History: Occasional Past Drug Use History: None Reported - Past Family History Mother Family Medical History: GERD/Reflux General Exam - General Exam Comments Initial Comments: Physical Exam GENERAL: Patient is well-developed and well-nourished. Morbidly obese Flushed, appears unwell but nontoxic HENT: Normocephalic, Atraumatic. EYES: PERRL, EOMI PULMONARY: Unlabored respirations. No audible rales rhonchi or wheezing was noted. CARDIOVASCULAR: There is a regular rate and rhythm without any murmurs gallops or rubs. ABDOMEN: Soft and nontender with normal bowel sounds. No tenderness to percussion of the flanks SKIN: Skin is flushed : declined pelvic exam NEUROLOGIC: Patient is alert and oriented x3. Moving all extremities spontaneously MUSCULOSKELETAL: Normal extremities with adequate strength and full range of motion. No lower extremity swelling or edema. No calf tenderness. PSYCHIATRIC: Normal psychiatric evaluation. Limitations: no limitations Course Vital Signs 04/14/20 04/14/20 01:23 03:42 Temperature 100.4 F H 98.5 F Pulse Rate 103 H 83 Respiratory 19 Rate Blood Pressure 122/68 126/73 O2 Sat by Pulse 98 98 Oximetry Medical Decision Making - Medical Decision Making The patient was seen and evaluated, history was obtained from the patient Ordered an obese 44-year-old female treated for UTI last week presenting with Sirs criteria no obvious source I did recommend a pelvic exam however patient states there is no concern for nor sexual transmitted infection, patient declined pelvic exam Labs resulted with mild leukocytosis with neutrophilia, labs are otherwise unremarkable Urinalysis no signs of infection Chest x-ray with no acute findings Results were discussed with the patient who reports feeling much better after antipyretics and IV fluids. Heart rate has normalized fever has resolved. At this time I discussed with the patient that she suffering from a flulike illness. We cannot rule out COVID 19 and she will be tested. At this time patient is stable for discharge home with continued supportive care. Close return parameters were discussed. Patient was advised according until she has her COVID 19 results. All questions pertaining to care were answered to the best of my ability and the patient was discharged home in stable condition. - Lab Data Result diagrams: 04/14/20 01:43 04/14/20 01:43 Lab Results 04/14/20 04/14/20 04/14/20 Range/Units 01:43 01:43 01:43 WBC 11.2 H (3.8-10.6) k/uL RBC 4.29 (3.80-5.40) m/uL Hgb 12.7 (11.4-16.0) gm/dL Hct 38.5 (34.0-46.0) % MCV 89.7 (80.0-100.0) fL MCH 29.6 (25.0-35.0) pg MCHC 33.0 (31.0-37.0) g/dL RDW 12.6 (11.5-15.5) % Plt Count 317 (150-450) k/uL Neutrophils % 91 % Lymphocytes % 4 % Monocytes % 4 % Eosinophils % 1 % Basophils % 0 % Neutrophils # 10.2 H (1.3-7.7) k/uL Lymphocytes # 0.4 L (1.0-4.8) k/uL Monocytes # 0.4 (0-1.0) k/uL Eosinophils # 0.1 (0-0.7) k/uL Basophils # 0.0 (0-0.2) k/uL PT 10.4 (9.0-12.0) sec INR 1.0 (<1.2) APTT 22.8 (22.0-30.0) sec Sodium (137-145) mmol/L Potassium (3.5-5.1) mmol/L Chloride (98-107) mmol/L Carbon Dioxide (22-30) mmol/L Anion Gap mmol/L BUN (7-17) mg/dL Creatinine (0.52-1.04) mg/dL Est GFR (CKD-EPI)AfAm (>60 ml/min/1.73 sqM) Est GFR (CKD-EPI)NonAf (>60 ml/min/1.73 sqM) Glucose (74-99) mg/dL Plasma Lactic Acid Vik (0.7-2.0) mmol/L Calcium (8.4-10.2) mg/dL Total Bilirubin (0.2-1.3) mg/dL AST (14-36) U/L ALT (4-34) U/L Alkaline Phosphatase (38-126) U/L Total Protein (6.3-8.2) g/dL Albumin (3.5-5.0) g/dL Urine Color Yellow Urine Appearance Clear (Clear) Urine pH 5.5 (5.0-8.0) Ur Specific [place] 1.016 (1.001-1.035) Urine Protein Negative (Negative) Urine Glucose (UA) Negative (Negative) Urine Ketones Negative (Negative) Urine Blood Negative (Negative) Urine Nitrite Negative (Negative) Urine Bilirubin Negative (Negative) Urine Urobilinogen <2.0 (<2.0) mg/dL Ur Leukocyte Esterase Negative (Negative) 04/14/20 04/14/20 Range/Units 01:43 01:43 WBC (3.8-10.6) k/uL RBC (3.80-5.40) m/uL Hgb (11.4-16.0) gm/dL Hct (34.0-46.0) % MCV (80.0-100.0) fL MCH (25.0-35.0) pg MCHC (31.0-37.0) g/dL RDW (11.5-15.5) % Plt Count (150-450) k/uL Neutrophils % % Lymphocytes % % Monocytes % % Eosinophils % % Basophils % % Neutrophils # (1.3-7.7) k/uL Lymphocytes # (1.0-4.8) k/uL Monocytes # (0-1.0) k/uL Eosinophils # (0-0.7) k/uL Basophils # (0-0.2) k/uL PT (9.0-12.0) sec INR (<1.2) APTT (22.0-30.0) sec Sodium 134 L (137-145) mmol/L Potassium 3.8 (3.5-5.1) mmol/L Chloride 101 (98-107) mmol/L Carbon Dioxide 25 (22-30) mmol/L Anion Gap 8 mmol/L BUN 19 H (7-17) mg/dL Creatinine 0.74 (0.52-1.04) mg/dL Est GFR (CKD-EPI)AfAm >90 (>60 ml/min/1.73 sqM) Est GFR (CKD-EPI)NonAf >90 (>60 ml/min/1.73 sqM) Glucose 152 H (74-99) mg/dL Plasma Lactic Acid Vik 1.4 (0.7-2.0) mmol/L Calcium 8.8 (8.4-10.2) mg/dL Total Bilirubin 0.9 (0.2-1.3) mg/dL AST 21 (14-36) U/L ALT 18 (4-34) U/L Alkaline Phosphatase 60 (38-126) U/L Total Protein 6.3 (6.3-8.2) g/dL Albumin 3.7 (3.5-5.0) g/dL Urine Color Urine Appearance (Clear) Urine pH (5.0-8.0) Ur Specific [place] (1.001-1.035) Urine Protein (Negative) Urine Glucose (UA) (Negative) Urine Ketones (Negative) Urine Blood (Negative) Urine Nitrite (Negative) Urine Bilirubin (Negative) Urine Urobilinogen (<2.0) mg/dL Ur Leukocyte Esterase (Negative) - EKG Data -: EKG Interpreted by Me EKG Comments: EKG was obtained due to tachycardia, EKG was obtained at 1:47 AM, rate is 99 rhythm sinus there is a leftward axis, normal intervals, WV 136, QRS 86, QTC 456 there are no acute ST elevations or depressions no evidence of acute ischemia, infarction or arrhythmia. Disposition Clinical Impression: Flu-like symptoms Disposition: HOME SELF-CARE Condition: Stable Additional Instructions: As we discussed the need to quarantine until COVID 19 has resulted, he'll be notified if it is positive Return to the ER if you have any worsening symptoms, fever that does not respond to Tylenol or Motrin or develop any new or concerning symptoms Follow-up with her primary care provider later this week for reevaluation even if you are feeling better Is patient prescribed a controlled substance at d/c from ED?: No Referrals: Neena Fregoso MD [Primary Care Provider] - 1-2 days
[2020-04-14 02:09] LABS: Partial Thromboplastin Time 22.8 sec (22.0-30.0); Prothrombin Time 10.4 sec (9.0-12.0)
[2020-04-14 02:12] LABS: ALT 18 U/L (4-34); AST 21 U/L (14-36); African American GFR (CKD) >90 (>60 ml/min/1.73 sqM); Albumin 3.7 g/dL (3.5-5.0); Alkaline Phosphatase 60 U/L (38-126); Anion Gap 8 mmol/L; Blood Urea Nitrogen 19 mg/dL (7-17); Calcium 8.8 mg/dL (8.4-10.2); Carbon Dioxide 25 mmol/L (22-30); Chloride 101 mmol/L (98-107); Glucose 152 mg/dL (74-99); Non-African American GFR(CKD) >90 (>60 ml/min/1.73 sqM); Potassium 3.8 mmol/L (3.5-5.1); Sodium 134 mmol/L (137-145); Total Bilirubin 0.9 mg/dL (0.2-1.3); Total Protein 6.3 g/dL (6.3-8.2)
[2020-04-14 03:15] LABS: Appearance,Urine Clear (Clear); Bilirubin,Urine Negative (Negative); Blood,Urine Negative (Negative); Color,Urine Yellow; Glucose,Urine (UA) Negative (Negative); Ketones,Urine Negative (Negative); Leukocyte Esterase,Urine Negative (Negative); Nitrite,Urine Negative (Negative); PH, Urine 5.5 (5.0-8.0); Protein,Urine Negative (Negative); Specific Gravity,Urine 1.016 (1.001-1.035); Urobilinogen,Urine <2.0 mg/dL (<2.0)
[2020-04-14 03:43] VITALS: BP 126/73; PULSE 83; TEMP 98.5
--- NOTE | 2020-04-14 03:49 | XR ---
EXAMINATION TYPE: XR chest 2V DATE OF EXAM: 04/14/2020 COMPARISON: 01/01/2017 HISTORY: Fever TECHNIQUE: FINDINGS: Heart and mediastinum are normal. Lungs are clear. Diaphragm is normal. Bony thorax appears normal. IMPRESSION: Normal chest. No change.
== END 2020-04-14 05:07 | disposition home or self-care (01) ==
LOC: EC 01:22
DX: R68.89 Other general symptoms and signs (principal); Z20.828 Contact with and (suspected) exposure to other viral communicable diseases; I10 Essential (primary) hypertension; Z79.899 Other long term (current) drug therapy; Z88.1 Allergy status to other antibiotic agents; Z88.5 Allergy status to narcotic agent
CPT/HCPCS: 36415; 93005; 80053; 83605; 85025; 85610; 85730; 81003; 87040; 71046; 99284; 96360; 96361 ×2; U0003

== ENCOUNTER 2020-05-20 18:56 | Observation (INO) | payer MEDICARE, OTHER ==
--- NOTE | 2020-05-20 19:03 | ED ---
Chest Pain HPI - General Chief Complaint: Chest Pain Stated Complaint: chest pain Time Seen by Provider: 05/20/20 19:02 Source: patient, RN notes reviewed, old records reviewed Mode of arrival: ambulatory Limitations: no limitations - History of Present Illness Initial Comments: This is a 44-year-old female DF for chest pain. New-onset chest pain this morning persisting into his afternoon worsening conditions of chest pain. No shortness of breath no new traumas. Chest. Right-sided radiating across the left to left side of her chest. No other issues, no fevers, some shortness of breath and swelling was noted MD Complaint: chest pain, other (Diaphoresis shortness of breath) -: hour(s) Onset: during rest Pain Location: right chest Pain Radiation: none Severity: moderate Severity scale (1-10): 4 Quality: tightness, heaviness Consistency: intermittent Improves With: nothing Worsens With: nothing Anginal Symptoms: diaphoresis, dyspnea Other Symptoms: palpitations Treatments Prior to Arrival: none - Related Data Home Medications Medication Instructions Recorded Confirmed lisinopriL [Zestril] 10 mg PO DAILY 01/01/17 02/28/20 HYDROcodone/APAP 7.5-325MG [[place] 1 tab PO DAILY PRN 02/28/20 02/28/20 7.5-325] SUMAtriptan succinate [Imitrex] 50 mg PO DAILY PRN 02/28/20 02/28/20 Sulfamethox-Tmp 800-160Mg [Bactrim 1 tab PO Q12H 02/28/20 02/28/20 DS 800-160 mg] Allergies Allergy/AdvReac Type Severity Reaction Status Date / Time cephalexin monohydrate Allergy Unknown Verified 05/20/20 18:58 [From Keflex] codeine Allergy Unknown Verified 05/20/20 18:58 tramadol Allergy Unknown Verified 05/20/20 18:58 Review of Systems ROS Statement: Those systems with pertinent positive or pertinent negative responses have been documented in the HPI. ROS Other: All systems not noted in ROS Statement are negative. EKG Findings - EKG Comments: EKG Findings:: EKG shows normal sinus rhythm 92 MI 126 QRs 90 QTc 460 Past Medical History Past Medical History: Asthma, GERD/Reflux, Hypertension Additional Past Medical History / Comment(s): Ventral septal defect, overacitve bladder, sinus issues History of Any Multi-Drug Resistant Organisms: MRSA Date of last positivie culture/infection: 2012 MDRO Source:: buttocks Past Surgical History: No Surgical Hx Reported Past Psychological History: Depression Smoking Status: Second hand smoke exposure Past Alcohol Use History: Occasional Past Drug Use History: None Reported - Past Family History Mother Family Medical History: GERD/Reflux General Exam Limitations: no limitations General appearance: alert, in no apparent distress Head exam: Present: atraumatic, normocephalic, normal inspection Eye exam: Present: normal appearance, PERRL, EOMI. Absent: scleral icterus, conjunctival injection, periorbital swelling ENT exam: Present: normal exam, mucous membranes moist Neck exam: Present: normal inspection. Absent: tenderness, meningismus, lymphadenopathy Respiratory exam: Present: normal lung sounds bilaterally. Absent: respiratory distress, wheezes, rales, rhonchi, stridor Cardiovascular Exam: Present: regular rate, normal rhythm, normal heart sounds. Absent: systolic murmur, diastolic murmur, rubs, gallop, clicks GI/Abdominal exam: Present: soft, normal bowel sounds. Absent: distended, tenderness, guarding, rebound, rigid Extremities exam: Present: normal inspection, full ROM, normal capillary refill. Absent: tenderness, pedal edema, joint swelling, calf tenderness Back exam: Present: normal inspection Neurological exam: Present: alert, oriented X3, CN II-XII intact Psychiatric exam: Present: normal affect, normal mood Skin exam: Present: warm, dry, intact, normal color. Absent: rash Course Vital Signs 05/20/20 05/20/20 18:58 20:09 Temperature 98.4 F Pulse Rate 89 77 Respiratory 16 18 Rate Blood Pressure 148/90 130/66 O2 Sat by Pulse 98 98 Oximetry - Reevaluation(s) Reevaluation #1: 05/20/20 20:33 Medical records reviewed Reevaluation #2: 05/20/20 20:33 Patient still with persistent chest pain Reevaluation #3: 05/20/20 20:33 patient informed results, questions answered Chest Pain MDM - MDM 44 female DEL with atypical right-sided chest pain, patient be admitted for cardiac observation, CT chest show ascending aortic aneurysm 5 cm we'll continue to monitor, not cause a patient's pain Disposition Clinical Impression: Chest pain Disposition: ADMITTED IP TO THIS HOSP Condition: Undetermined Is patient prescribed a controlled substance at d/c from ED?: No Referrals: Neena Fregoso MD [Primary Care Provider] - 1-2 days
[2020-05-20 19:42] LABS: Basophils % (A) 0 %; Eosinophils # (A) 0.1 k/uL (0-0.7); Eosinophils % (A) 1 %; HCT 39.3 % (34.0-46.0); HGB 12.7 gm/dL (11.4-16.0); Lymphocytes # (A) 2.2 k/uL (1.0-4.8); Lymphocytes % (A) 28 %; MCH 29.6 pg (25.0-35.0); MCHC 32.3 g/dL (31.0-37.0); MCV 91.5 fL (80.0-100.0); Mean Platelet Volume 6.8; Monocytes # (A) 0.5 k/uL (0-1.0); Monocytes % (A) 6 %; Neutrophils # (A) 4.8 k/uL (1.3-7.7); Neutrophils % (A) 62 %; Platelet Count 325 k/uL (150-450); RDW 12.7 % (11.5-15.5); WBC 7.7 k/uL (3.8-10.6)
[2020-05-20 19:49] LABS: ALT 18 U/L (4-34); AST 22 U/L (14-36); African American GFR (CKD) >90 (>60 ml/min/1.73 sqM); Albumin 3.6 g/dL (3.5-5.0); Alkaline Phosphatase 52 U/L (38-126); Anion Gap 4 mmol/L; Blood Urea Nitrogen 23 mg/dL (7-17); Carbon Dioxide 29 mmol/L (22-30); Chloride 104 mmol/L (98-107); Glucose 129 mg/dL (74-99); Magnesium 1.8 mg/dL (1.6-2.3); Non-African American GFR(CKD) >90 (>60 ml/min/1.73 sqM); Potassium 4.7 mmol/L (3.5-5.1); Sodium 137 mmol/L (137-145); Total Bilirubin 0.4 mg/dL (0.2-1.3); Total Protein 6.3 g/dL (6.3-8.2)
[2020-05-20 19:53] LABS: INR 0.9 (<1.2); Partial Thromboplastin Time 25.1 sec (22.0-30.0); Prothrombin Time 9.8 sec (9.0-12.0)
--- NOTE | 2020-05-20 20:28 | CT ---
EXAMINATION TYPE: CT angio chest DATE OF EXAM: 05/20/2020 COMPARISON: None HISTORY: Chest pain CT DLP: 836.7 mGycm Automated exposure control for dose reduction was used. CONTRAST: Performed with IV Contrast, patient injected with 100 mL of Isovue 370. There are 3-D post processed images. There is 5 cm aneurysm of the ascending aorta. There is no mediastinal adenopathy. There are no hilar masses. Heart size is normal. There is no pericardial effusion. The lungs are clear of infiltrate. There is no evidence of a pulmonary mass. There is no pleural effu immanuel. Upper normal soft tissues are intact. There is normal contrast opacification of the pulmonary arteries. There are no filling defects. Thoracic spine is intact. There is no compression fracture. The ribs appear intact. Sternum is intact . IMPRESSION: No evidence of pulmonary embolism. 5 cm aneurysm of the ascending aorta. No evidence of dissection.
[2020-05-20] MEDS ORDERED: NITROGLYCERIN SL TABS 0.4 MG TAB SUBLINGUAL PRN (20:31)
[2020-05-20] MEDS ORDERED: ASPIRIN 81 MG PO STA (20:31)
[2020-05-20] MEDS: SODIUM CHLORIDE 0.9% 1,000 ML IV SCH (21:06)
[2020-05-20] MEDS: METOPROLOL TARTRATE 25 MG TAB PO SCH (21:07)
[2020-05-21 06:39] LABS: Cholesterol 144 mg/dL (<200); HDL Cholesterol 43 mg/dL (40-60); LDL Cholesterol,Calculated 84 mg/dL (0-99); Triglycerides 84 mg/dL (<150)
[2020-05-21] MEDS: SODIUM CHLORIDE 0.9% 1,000 ML IV SCH ×2 (06:39→12:32)
[2020-05-21] MEDS ORDERED: DOBUTamine DRIP for NUC MED 500 MG in DEXTROSE/WATER 1 250ML.BAG IV ONE (07:32)
[2020-05-21] MEDS ORDERED: ASPIRIN 325 MG TAB PO SCH (09:00)
[2020-05-21 09:31] VITALS: BP 155/83; PULSE 72; RESP 16; TEMP 98.2
[2020-05-21] MEDS ORDERED: ONDANSETRON 4 MG/2 ML VIAL ONE (10:25)
[2020-05-21] MEDS ORDERED: METOPROLOL TARTRATE 5 MG/5 ML VIAL IVP ONE (10:25)
[2020-05-21] MEDS ORDERED: ATROPINE SULFATE 0.1 MG/ML 10ML SYRINGE ONE (10:25)
--- NOTE | 2020-05-21 10:54 | P.CRDCN ---
History of Present Illness History of present illness: HISTORY OF PRESENTING ILLNESS This is a pleasant 44-year-old female past medical history significant for hypertension, VSD and valvular heart disease. 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 We have been asked to see in consultation for chest pain. She presented to the hospital yesterday with symptoms of chest discomfort. She states it started about she was sitting down on the right side of her chest and moved back and forth intermittently at times. She felt like some he was pressing against her chest. It was associated with some mild shortness of breath. She denies palpitations, nausea, vomiting or diaphoresis. She continues to have ongoing chest discomfort that is described as a pressure with sometimes sharp sensation. DIAGNOSTICS EKG reveals sinus mechanism with no acute ST or T wave abnormalities noted. CTA of the chest is negative for pulmonary embolism with evidence of a 5 cm aneurysm of the ascending aorta with no dissection noted. Laboratory reviewed, CBC unremarkable, sodium 137, potassium 4.7, creatinine 0.68, magnesium 1.8, cardiac enzymes negative 3, NT proBNP 170, LDL 84 and HDL 43. She takes no daily cardiac medications. REVIEW OF SYSTEMS At the time of my exam: CONSTITUTIONAL: Denies fever or chills. CARDIOVASCULAR: Complains of chest pain. Denies shortness of breath, orthopnea, PND or palpitations. RESPIRATORY: Denies cough. GASTROINTESTINAL: Denies abdominal pain, diarrhea, constipation, nausea or vomit ing. MUSCULOSKELETAL: Denies myalgias. NEUROLOGIC: Denies numbness, tingling or weakness. ENDOCRINE: Denies fatigue, weight change, polydipsia or polyurina. GENITOURINARY: Denies burning, hematuria or urgency with micturation. HEMATOLOGIC: Denies history of anemia or bleeding. PHYSICAL EXAMINATION Blood pressure 155/83 heart rate 72 afebrile and maintaining oxygen saturation on room air. CONSTITUTIONAL: No apparent distress. Obese. HEENT: Head is normocephalic. Pupils are equal, round. Sclerae anicteric. Mucous membranes of the mouth are moist. No JVD. No carotid bruit. CHEST EXAMINATION: Lungs are clear to auscultation. No chest wall tenderness is noted on palpation or with deep breathing. HEART EXAMINATION: Regular rate and rhythm. S1, S2 heard. Systolic ejection murmur at the base, no gallops or rub. ABDOMEN: Soft, nontender. Positive bowel sounds. EXTREMITIES: 2+ peripheral pulses, no lower extremity edema and no calf tenderness. NEUROLOGIC EXAMINATION: Patient is awake, alert and oriented x3. ASSESSMENT Chest pain, any acute coronary event has been ruled out. History of hypertension not currently on medication Ventricular septal defect Aortic stenosis Aortic aneurysm, ascending. 5 cm. PLAN An acute coronary event has been ruled out. Obtain 2-D echocardiogram and Doppler study to assess cardiac structure and function. Perform dobutamine stress echocardiogram to assess for stress-induced cardiac ischemia. Continue to monitor blood pressure closely and initiate antihypertensives as warranted. Thank you kindly for this consultation. Nurse Practitioner note has been reviewed, I agree with a documented findings and plan of care. Patient was seen and examined. Past Medical History Past Medical History: Asthma, GERD/Reflux, Hypertension Additional Past Medical History / Comment(s): Ventral septal defect, overacitve bladder, sinus issues History of Any Multi-Drug Resistant Organisms: MRSA Date of last positivie culture/infection: 2012 MDRO Source:: buttocks Past Surgical History: No Surgical Hx Reported Past Anesthesia/Blood Transfusion Reactions: No Reported Reaction Past Psychological History: Depression Smoking Status: Never smoker, Second hand smoke exposure Past Alcohol Use History: None Reported, Occasional Past Drug Use History: None Reported - Past Family History Mother Family Medical History: GERD/Reflux Medications and Allergies Home Medications Medication Instructions Recorded Confirmed Type HYDROcodone/APAP 7.5-325MG [[place] 1 tab PO DAILY PRN 02/28/20 05/20/20 History 7.5-325] Ondansetron [Zofran ODT] 4 mg PO BID PRN 05/20/20 05/20/20 History tiZANidine [Zanaflex] 4 mg PO DAILY PRN 05/20/20 05/20/20 History Allergies Allergy/AdvReac Type Severity Reaction Status Date / Time cephalexin monohydrate Allergy Unknown Verified 05/20/20 22:08 [From Keflex] codeine Allergy Unknown Verified 05/20/20 22:08 tramadol Allergy Unknown Verified 05/20/20 22:08 Physical Exam Vitals: Vital Signs Temp Pulse Pulse Resp BP BP Pulse Ox 05/21/20 09:00 98.2 F 72 16 155/83 97 05/21/20 03:00 97.7 F 68 18 142/55 99 05/20/20 21:33 98.1 F 70 18 135/92 97 05/20/20 20:31 97 05/20/20 20:09 77 18 130/66 98 05/20/20 18:58 98.4 F 89 16 148/90 98 Intake and Output 05/20/20 05/21/20 05/21/20 22:59 06:59 14:59 Other: Voiding Method Toilet # Voids 2 2 Weight 131.542 kg Results 05/20/20 19:30 05/20/20 19:30 Cardiac Enzymes 05/20/20 05/20/20 05/20/20 Range/Units : 19: 22:47 AST 22 (14-36) U/L Troponin I <0.012 <0.012 (0.000-0.034) ng/mL 05/21/20 Range/Units 02:04 AST (14-36) U/L Troponin I <0.012 (0.000-0.034) ng/mL Coagulation 05/20/20 Range/Units 19:30 PT 9.8 (9.0-12.0) sec APTT 25.1 (22.0-30.0) sec Lipids 05/21/20 Range/Units 02:04 Triglycerides 84 (<150) mg/dL Cholesterol 144 (<200) mg/dL HDL Cholesterol 43 (40-60) mg/dL CBC 05/20/20 Range/Units 19:30 WBC 7.7 (3.8-10.6) k/uL RBC 4.30 (3.80-5.40) m/uL Hgb 12.7 (11.4-16.0) gm/dL Hct 39.3 (34.0-46.0) % Plt Count 325 (150-450) k/uL Comprehensive Metabolic Panel 05/20/20 Range/Units 19:30 Sodium 137 (137-145) mmol/L Potassium 4.7 (3.5-5.1) mmol/L Chloride 104 (98-107) mmol/L Carbon Dioxide 29 (22-30) mmol/L BUN 23 H (7-17) mg/dL Creatinine 0.68 (0.52-1.04) mg/dL Glucose 129 H (74-99) mg/dL Calcium 9.0 (8.4-10.2) mg/dL AST 22 (14-36) U/L ALT 18 (4-34) U/L Alkaline Phosphatase 52 (38-126) U/L Total Protein 6.3 (6.3-8.2) g/dL Albumin 3.6 (3.5-5.0) g/dL Current Medications Generic Name Dose Route Start Last Admin Trade Name Freq PRN Reason Stop Dose Admin Aspirin 325 mg 05/21/20 09:00 Aspirin 325 Mg Tab PO DAILY TESS Sodium Chloride 1,000 mls @ 100 mls/hr 05/20/20 20:45 05/21/20 06:39 Saline 0.9% IV Not Given .Q10H TESS Dobutamine HCl/Dextrose 500 mg 250 mls @ 39.463 mls/hr 05/21/20 07:32 / IV Solution IV 05/21/20 13:52 .Q6H21M ONE Protocol 10 MCG/KG/MIN Metoprolol Tartrate 25 mg 05/20/20 21:00 05/20/20 21:07 Metoprolol Tartrate 25 Mg Tab PO 25 mg BID TESS Administration Nitroglycerin 0.4 mg 05/20/20 20:31 Nitroglycerin Sl Tabs 0.4 Mg Tab SUBLINGUAL Q5M PRN Chest Pain Intake and Output 05/20/20 05/21/20 05/21/20 22:59 06:59 14:59 Other: Voiding Method Toilet # Voids 2 2 Weight 131.542 kg 05/20/20 19:30 05/20/20 19:30
--- NOTE | 2020-05-21 11:18 | P.HPIM ---
History of Present Illness This is a pleasant 44 years old female with past medical history of asthma, GERD, hypertension. Presents because of chest pain which is started yesterday morning, it was central chest radiating to the right side of the chest felt like tightness, but it/10, down today to 5/10 associated with muscle spasm and tenderness with little shortness of breath. No other symptoms, no headache or weakness or change in urine or bowel habits. No fever She denies smoking, alcohol or illicit drugs Preoperative test but she declined. Vitals and labs look stable including CBC, BMP, liver exam, suture troponin and lipase. CTA of the chest: No PE, this 5 cm aneurysm of the ascending to. Review of Systems CONSTITUTIONAL: No fever, no malaise, no fatigue. HEENT: No recent visual problems or hearing problems. Denied any sore throat. CARDIOVASCULAR: No orthopnea, PND, no palpitations, no syncope. PULMONARY: No shortness of breath, no cough, no hemoptysis. GASTROINTESTINAL: No diarrhea, no nausea, no vomiting, no abdominal pain. Normoactive bowel sounds. NEUROLOGICAL: No headaches, no weakness, no numbness. HEMATOLOGICAL: Denies any bleeding or petechiae. GENITOURINARY: Denies any burning micturition, frequency, or urgency. MUSCULOSKELETAL/RHEUMATOLOGICAL: Denies any joint pain, swelling, or any muscle pain. ENDOCRINE: Denies any polyuria or polydipsia. Past Medical History Past Medical History: Asthma, GERD/Reflux, Hypertension Additional Past Medical History / Comment(s): Ventral septal defect, overacitve bladder, sinus issues History of Any Multi-Drug Resistant Organisms: MRSA Date of last positivie culture/infection: 2012 MDRO Source:: buttocks Past Surgical History: No Surgical Hx Reported Past Anesthesia/Blood Transfusion Reactions: No Reported Reaction Past Psychological History: Depression Smoking Status: Never smoker, Second hand smoke exposure Past Alcohol Use History: None Reported, Occasional Past Drug Use History: None Reported - Past Family History Mother Family Medical History: GERD/Reflux Medications and Allergies Home Medications Medication Instructions Recorded Confirmed Type HYDROcodone/APAP 7.5-325MG [[place] 1 tab PO DAILY PRN 02/28/20 05/20/20 History 7.5-325] Ondansetron [Zofran ODT] 4 mg PO BID PRN 05/20/20 05/20/20 History tiZANidine [Zanaflex] 4 mg PO DAILY PRN 05/20/20 05/20/20 History Allergies Allergy/AdvReac Type Severity Reaction Status Date / Time cephalexin monohydrate Allergy Unknown Verified 05/20/20 22:08 [From Keflex] codeine Allergy Unknown Verified 05/20/20 22:08 tramadol Allergy Unknown Verified 05/20/20 22:08 Physical Exam Vitals: Vital Signs Temp Pulse Pulse Resp BP BP Pulse Ox 05/21/20 09:00 98.2 F 72 16 155/83 97 05/21/20 03:00 97.7 F 68 18 142/55 99 05/20/20 21:33 98.1 F 70 18 135/92 97 05/20/20 20:31 97 05/20/20 20:09 77 18 130/66 98 05/20/20 18:58 98.4 F 89 16 148/90 98 Intake and Output 05/20/20 05/21/20 05/21/20 22:59 06:59 14:59 Other: Voiding Method Toilet # Voids 2 2 Weight 131.542 kg -GENERAL: The patient is alert and oriented x3, not in any acute distress. Well obese HEENT: Pupils are round and equally reacting to light. EOMI. No scleral icterus. No conjunctival pallor. Normocephalic, atraumatic. No pharyngeal erythema. No thyromegaly. -CARDIOVASCULAR: S1 and S2 present. No murmurs, rubs, or gallops. Central chest wall tenderness, mild. PULMONARY: Chest is clear to auscultation, no wheezing or crackles. ABDOMEN: Soft, nontender, nondistended, normoactive bowel sounds. No palpable organomegaly. MUSCULOSKELETAL: No joint swelling or deformity. EXTREMITIES: No cyanosis, clubbing, or pedal edema. NEUROLOGICAL: Gross neurological examination did not reveal any focal deficits. SKIN: No rashes. No petechiae Results CBC & Chem 7: 05/20/20 19:30 05/20/20 19:30 Labs: Abnormal Lab Results - Last 24 Hours (Table) 05/20/20 Range/Units 19:30 BUN 23 H (7-17) mg/dL Glucose 129 H (74-99) mg/dL Thrombosis Risk Factor Assmnt - Choose All That Apply Any of the Below Risk Factors Present?: Yes Each Factor Represents 1 point: Age 41-60 years, Obesity (BMI >25) Other Risk Factors: No Other congenital or acquired thrombophilia - If yes, enter type in comment: No Thrombosis Risk Factor Assessment Total Risk Factor Score: 2 Thrombosis Risk Factor Assessment Level: Low Risk Assessment and Plan Assessment: Chest pain, rule out cardiac causes Aortic aneurysm about 5 cm GERD Hypertension History of asthma, not active tissue Morbid obesity with BMI 49 Plan: This is a pleasant 44 years old female, presents because of chest pain. RECOMMENDATION by shear operator helper who recommended Citrleonardl done echocardiogram. Al so consult vascular surgery for her aortic aneurysm Labs and medication were reviewed.. Continue same treatment. Continue with symptomatic treatment. Resume home medication. Monitor lytes and vitals. DVT and GI prophylaxis. Further recommendations depends on the clinical course of the patient DVT prophylaxis: Subcutaneous heparin GI Prophylaxis: Pepcid
--- NOTE | 2020-05-21 12:00 | ECHOF ---
Referral Reason:chest pain MEASUREMENTS -------- HEIGHT: 162.6 cm WEIGHT: 131.5 kg BP: 142/55 RVIDd: 3.0 cm (< 3.3) IVSd: 1.3 cm (0.6 - 1.1) LVIDd: 4.7 cm (3.9 - 5.3) LVPWd: 1.3 cm (0.6 - 1.1) IVSs: 1.8 cm LVIDs: 3.1 cm LVPWs: 1.7 cm LA Diam: 3.9 cm (2.7 - 3.8) LAESV Index (A-L): 29.23 ml/m Ao Diam: 3.3 cm (2.0 - 3.7) MV EXCURSION: 13.536 mm (> 18.000) MV EF SLOPE: 87 mm/s (70 - 150) EPSS: 0.8 cm MV E Papito: 0.95 m/s MV DecT: 266 ms MV A Papito: 0.94 m/s MV E/A Ratio: 1.01 AV maxP.39 mmHg AV meanP.56 mmHg RAP: 5.00 mmHg RVSP: 32.40 mmHg FINDINGS -------- Sinus rhythm. This was a technically difficult study with suboptimal parasternal views. The left ventricular size is normal. There is mild concentric left ventricular hypertrophy. Overa ll left ventricular systolic function is normal with, an EF between 60 - 65 %. The right ventricle is normal in size. LA is midly dilated 29-33ml/m2. 1.5mg of Definity was utilized for enhancement of images Small membranous ventricular septal defect present. The aortic valve was not well visualized. There is mild aortic regurgitation. Peak/mean gradient across the Aortic Valve is 24.39mmHg / 13.56mmHg. Mild mitral regurgitation is present. Swax-og-vhtndlhb tricuspid regurgitation present. Right ventricular systolic pressure is normal at < 35 mmHg. The pulmonic valve was not well visualized. The aortic root size is normal. IVC Not well visulized. There is no pericardial effusion. CONCLUSIONS -------- 1. This was a technically difficult study with suboptimal parasternal views. 2. The left ventricular size is normal. 3. There is mild concentric left ventricular hypertrophy. 4. Overall left ventricular systolic function is normal with, an EF between 60 - 65 %. 5. LA is midly dilated 29-33ml/m2. 6. 1.5mg of Definity was utilized for enhancement of images 7. Small membranous ventricular septal defect present. 8. The aortic valve was not well visualized. 9. There is mild aortic regurgitation. 10. Peak/mean gradient across the Aortic Valve is 24.39mmHg / 13.56mmHg. 11. Mild mitral regurgitation is present. 12. Ncgi-br-cxnyvcac tricuspid regurgitation present. 13. There is no pericardial effusion. AEROBICS TEACHER: Salma Lynn RDCS
[2020-05-21] MEDS: METOPROLOL TARTRATE 25 MG TAB PO SCH (12:32)
--- NOTE | 2020-05-21 14:10 | P.GSCN ---
History of Present Illness Consult date: 05/21/20 Reason for Consult: Ascending aortic aneurysm Requesting physician: Jefferson E Sheet History of present illness: This is a pleasant 44-year-old female past medical history significant for hypertension, VSD and valvular heart disease. She follows in the office with a data analyst etl developer out of [place]. We have been asked to see in consultation for incidental finding of an times centimeter ascending aortic aneurysm. She presented to the hospital yesterday with symptoms of chest discomfort. She states it started around 8 AM while sitting down, it occurred on the right side of her chest and moved back and forth intermittently at times. She felt like some he was pressing against her chest. It was associated with some mild shortness of breath. She denies palpitations, nausea, vomiting or diaphoresis. She continues to have ongoing chest discomfort that is described as a pressure and tightness along her chest. She denies any shortness of breath at this time. She denies any history of acid reflux. She denies any prior history of being diagnosed with in aortic aneurysm. She does not recall if she has a family history of any aortic or abdominal aneurysms. She has a life long nonsmoker. Review of Systems A 14 point review systems was completed all pertinent positives and negatives as stated in the HPI. Past Medical History Past Medical History: Asthma, GERD/Reflux, Hypertension Additional Past Medical History / Comment(s): Ventral septal defect, overacitve bladder, sinus issues History of Any Multi-Drug Resistant Organisms: MRSA Year Discovered:: 2012 MDRO Source:: buttocks Past Surgical History: No Surgical Hx Reported Past Anesthesia/Blood Transfusion Reactions: No Reported Reaction Past Psychological History: Depression Smoking Status: Never smoker, Second hand smoke exposure Past Alcohol Use History: None Reported, Occasional Past Drug Use History: None Reported - Past Family History Mother Family Medical History: GERD/Reflux Medications and Allergies Home Medications Medication Instructions Recorded Confirmed Type HYDROcodone/APAP 7.5-325MG [[place] 1 tab PO DAILY PRN 02/28/20 05/20/20 History 7.5-325] Ondansetron [Zofran ODT] 4 mg PO BID PRN 05/20/20 05/20/20 History tiZANidine [Zanaflex] 4 mg PO DAILY PRN 05/20/20 05/20/20 History Allergies Allergy/AdvReac Type Severity Reaction Status Date / Time cephalexin monohydrate Allergy Unknown Verified 05/20/20 22:08 [From Keflex] codeine Allergy Unknown Verified 05/20/20 22:08 tramadol Allergy Unknown Verified 05/20/20 22:08 Surgical - Exam Vital Signs Temp Pulse Resp BP Pulse Ox 98.4 F 89 16 148/90 98 05/20/20 18:58 05/20/20 18:58 05/20/20 18:58 05/20/20 18:58 05/20/20 18:58 General appearance: The patient is alert, oriented, in no acute distress. Morbidly obese. HET: Head is normocephalic and atraumatic. Neck: Supple without lymphadenopathy. Heart: S1 S2. Regular rate and rhythm. Systolic ejection murmur. Lungs: No crackles or wheezes are heard. Abdomen: Soft, obese, nontender, nondistended with bowel sounds. Extremities: Normal skin color and turgor. No cyanosis, rash, ulceration, clubbing, or edema. Neurological: No focal deficits. Alert and oriented 3. Results EKG reveals sinus mechanism with no acute ST or T wave abnormalities noted. CTA of the chest is negative for pulmonary embolism with evidence of a 5 cm a neurysm of the ascending aorta with no dissection noted. Echocardiogram shows mild concentric left ventricular hypertrophy, EF between 60 and 65%, LA is mildly dilated, small membranous ventricular septal defect present, mild aortic regurgitation, mild mitral regurgitation, mild to moderate tricuspid regurgitation present, and no pericardial effusion. - Labs 05/20/20 19:30 05/20/20 19:30 Abnormal Lab Results - Last 24 Hours (Table) 05/20/20 Range/Units 19:30 BUN 23 H (7-17) mg/dL Glucose 129 H (74-99) mg/dL Diabetes panel 05/20/20 05/21/20 Range/Units 19:30 02:04 Sodium 137 (137-145) mmol/L Potassium 4.7 (3.5-5.1) mmol/L Chloride 104 (98-107) mmol/L Carbon Dioxide 29 (22-30) mmol/L BUN 23 H (7-17) mg/dL Creatinine 0.68 (0.52-1.04) mg/dL Glucose 129 H (74-99) mg/dL Calcium 9.0 (8.4-10.2) mg/dL AST 22 (14-36) U/L ALT 18 (4-34) U/L Alkaline Phosphatase 52 (38-126) U/L Total Protein 6.3 (6.3-8.2) g/dL Albumin 3.6 (3.5-5.0) g/dL Triglycerides 84 (<150) mg/dL HDL Cholesterol 43 (40-60) mg/dL Calcium panel 05/20/20 Range/Units 19:30 Calcium 9.0 (8.4-10.2) mg/dL Albumin 3.6 (3.5-5.0) g/dL Pituitary panel 05/20/20 Range/Units 19:30 Sodium 137 (137-145) mmol/L Potassium 4.7 (3.5-5.1) mmol/L Chloride 104 (98-107) mmol/L Carbon Dioxide 29 (22-30) mmol/L BUN 23 H (7-17) mg/dL Creatinine 0.68 (0.52-1.04) mg/dL Glucose 129 H (74-99) mg/dL Calcium 9.0 (8.4-10.2) mg/dL Adrenal panel 05/20/20 Range/Units 19:30 Sodium 137 (137-145) mmol/L Potassium 4.7 (3.5-5.1) mmol/L Chloride 104 (98-107) mmol/L Carbon Dioxide 29 (22-30) mmol/L BUN 23 H (7-17) mg/dL Creatinine 0.68 (0.52-1.04) mg/dL Glucose 129 H (74-99) mg/dL Calcium 9.0 (8.4-10.2) mg/dL Total Bilirubin 0.4 (0.2-1.3) mg/dL AST 22 (14-36) U/L ALT 18 (4-34) U/L Alkaline Phosphatase 52 (38-126) U/L Total Protein 6.3 (6.3-8.2) g/dL Albumin 3.6 (3.5-5.0) g/dL Assessment and Plan Assessment: 1. Chest pain, acute coronary event has been ruled out 2. Ascending aortic aneurysm, 5 cm, non-dissected 3. Ventricular septal defect 4. Hypertension 5. Morbidly obese Plan: The patient and CT angiogram was reviewed with Dr. Quiroz. There is no indication for any vascular surgical intervention at this time. The patient can have outpatient follow-up and evaluation for abdominal aortic aneurysm, as well as monitoring of the 5 cm aneurysm of the ascending aorta. Patient may be discharged home from a vascular surgical standpoint. Thank you for this kind referral and the opportunity to participate in the care of your patient. This consultation was discussed with Dr. Quiroz. The impression and plan of care have been directed as dictated.
--- NOTE | 2020-05-21 14:54 | ECHOS ---
STRESS ECHOCARDIOGRAM INDICATIONS: Chest pain. BASELINE HEART RATE: 67 BASELINE BLOOD PRESSURE: 138/79 MAXIMUM HEART RATE: 164 MAXIMUM BLOOD PRESSURE: 146/73 85% MPHR: 150 100% MPHR: 171 MAXIMUM STAGE REACHED: 4 TOTAL EXERCISE TIME: 18:00. CLINICAL INFORMATION: Baseline EKG shows sinus rhythm, normal axis, normal intervals. Patient was given intravenous dobutamine over a period of 18 minutes as per protocol, received 0.5 mg of atropine, achieving 93% of predicted maximal heart rate without chest pain. Baseline echo shows normal left ventricular size, wall motion and systolic function. Post dobutamine infusion, there is normal hyperdynamic response of all segments of myocardium noted. CONCLUSION: 1. Negative stress test by EKG criteria. 2. Negative dobutamine stress echo. MMODL / IJN: [id number] /
[2020-05-21] MEDS ORDERED: FAMOTIDINE 20 MG/2 ML VIAL IV SCH (21:00)
[2020-05-21] MEDS ORDERED: HEPARIN SODIUM,PORCINE 5,000 UNIT/ML 1 ML VIAL SQ SCH (21:00)
[2020-05-21] MEDS ORDERED: FAMOTIDINE 20 MG TAB PO SCH (21:00)
== END 2020-05-21 16:02 | disposition home or self-care (01) ==
LOC: EC 18:56 → 3NCARDOBS 20:31
PROVIDERS: ADMIT Hospitalist; ATTEND Hospitalist
DX: R07.89 Other chest pain (principal); E66.01 Morbid (severe) obesity due to excess calories; F32.9 Major depressive disorder, single episode, unspecified; I10 Essential (primary) hypertension; I71.2 Thoracic aortic aneurysm, without rupture; J45.909 Unspecified asthma, uncomplicated; K21.9 Gastro-esophageal reflux disease without esophagitis; Q21.0 Ventricular septal defect; Z68.42 Body mass index [BMI] 45.0-49.9, adult; Z77.22 Contact with and (suspected) exposure to environmental tobacco smoke (acute) (chronic)
CPT/HCPCS: 93005 ×2; 99285; 36415; 83880; 80061; 80053; 83690; 83735; 84484 ×2; 85025; 85610; 85730; 71275; G0378 ×2; C8929; C8930; J1250; J2405; J0461; Q9950; Q9967; 93306; 93351

== ENCOUNTER → 2020-06-20 | Outpatient (CLI) | payer MEDICARE, OTHER ==
[2020-06-20 17:32] LABS: African American GFR (CKD) 103.9 (60.0-200.0); Anion Gap 4.8 mmol/L (4.00-12.00); BUN/Creat Ratio 21.25 Ratio (12.00-20.00); Calcium 9.4 mg/dL (8.7-10.3); Carbon Dioxide 31.2 mmol/L (21.6-31.8); Chol/HDL Ratio 2.97; LDL Cholesterol,Calculated 105.2 mg/dL (0.0-131.0); Non-African American GFR(CKD) 89.7 (60.0-200.0); Phosphorus 3.6 mg/dL (2.4-5.1); Potassium 4.4 mmol/L (3.5-5.5); VLDL Calculation 12.8 mg/dL (5.00-40.00)
[2020-06-20 21:06] LABS: Hemoglobin A1C 5.8 % (4.0-6.0)
== END | disposition home or self-care (01) ==
LOC: LABMAIN 10:21
PROVIDERS: ATTEND Internal Medicine
DX: I71.2 Thoracic aortic aneurysm, without rupture (principal); R07.89 Other chest pain; R63.5 Abnormal weight gain; R73.09 Other abnormal glucose
CPT/HCPCS: 36415; 80061; 80069; 83036

== ENCOUNTER → 2020-07-30 | Outpatient (CLI) | payer MEDICARE, OTHER ==
--- NOTE | 2020-07-30 20:42 | MR ---
EXAMINATION TYPE: MR knee RT wo con DATE OF EXAM: 07/30/2020 COMPARISON: Outside right knee x-ray February 28, 2020. HISTORY: Rt knee pain. Inner knee pain and swelling since falling injury in January. TECHNIQUE: Multiplanar, multisequence imaging of the right knee is performed without IV contrast. FINDINGS: The exam is slightly suboptimal secondary to patient's large body habitus. MEDIAL MENISCUS: Anterior and posterior horns are intact without tear. LATERAL MENISCUS: Anterior and posterior horns are intact without tear. CRUCIATE LIGAMENTS: The posterior cruciate ligament is intact and unremarkable. Anterior cruciate lig ament is completely torn with some remnant distal fracture fragments in the intracondylar notch above the tibia areas COLLATERAL LIGAMENTS: The medial collateral ligament and lateral collateral ligament complex are inta ct and unremarkable. EXTENSOR MECHANISM: Visualized quadriceps and patellar tendons are intact. EFFUSION: No significant suprapatellar joint effusion. POPLITEAL CYST: No popliteal/shepherd cyst. TRICOMPARTMENT SPACES: Mild tricompartment joint space loss. No significant spurring. CARTILAGE: Tricompartment articular cartilage is preserved. BONE MARROW SIGNAL: No focal abnormal marrow signal is appreciated. OTHER: No additional significant abnormality is appreciated. IMPRESSION: Complete ACL tear likely at time of injury. No suspicious osseous edema or joint effusion currently. No meniscal tear is evident
== END | disposition home or self-care (01) ==
LOC: RADMRIMAIN 11:39
PROVIDERS: ATTEND Internal Medicine
DX: M25.561 Pain in right knee (principal)

== ENCOUNTER 2020-09-03 21:47 | Emergency (ER) | payer MEDICARE, OTHER ==
[2020-09-03] MEDS ORDERED: ACETAMINOPHEN TAB 325 MG TAB PO STA (22:12)
--- NOTE | 2020-09-03 22:17 | ED ---
Fever HPI - General Chief Complaint: Fever Stated Complaint: Fever/not eating/weakness Time Seen by Provider: 09/03/20 22:04 Source: patient Mode of arrival: wheelchair Limitations: no limitations - History of Present Illness MD Complaint: fever Onset/Timin -: days(s) Temperature Source: subjective Associated Symptoms: chills, myalgias, vomiting Treatments Prior to Arrival: none - Related Data Home Medications Medication Instructions Recorded Confirmed HYDROcodone/APAP 7.5-325MG [[place] 1 tab PO DAILY PRN 02/28/20 09/03/20 7.5-325] Acetaminophen Tab [Tylenol Tab] 500 mg PO Q6HR PRN 09/03/20 09/03/20 Aspirin [Children's Aspirin] 81 mg PO DAILY 09/03/20 09/03/20 Calcium Carbonate [Tums] 500 mg PO TID PRN 09/03/20 09/03/20 Esomeprazole Magnesium [NexIUM 20 mg PO DAILY PRN 09/03/20 09/03/20 24Hr] Famotidine [Pepcid] 20 mg PO DAILY 09/03/20 09/03/20 Lisinopril [Zestril] 10 mg PO DAILY 09/03/20 09/03/20 Nitrofurantoin Monohyd/M-Cryst 100 mg PO Q12HR 09/03/20 09/03/20 [Macrobid] Previous Rx's Medication Instructions Recorded Nitroglycerin Sl Tabs [Nitrostat] 0.4 mg SUBLINGUAL Q5M PRN #10 tab 05/21/20 Allergies Allergy/AdvReac Type Severity Reaction Status Date / Time cephalexin monohydrate Allergy Unknown Verified 09/03/20 23:39 [From Keflex] codeine Allergy Unknown Verified 09/03/20 23:39 tramadol Allergy Unknown Verified 09/03/20 23:39 Review of Systems ROS Statement: Those systems with pertinent positive or pertinent negative responses have been documented in the HPI. ROS Other: All systems not noted in ROS Statement are negative. Constitutional: Reports: fever, chills ENT: Denies: ear pain, throat pain, congestion Respiratory: Denies: cough, dyspnea, wheezes Cardiovascular: Denies: chest pain, palpitations, orthopnea, edema Gastrointestinal: Reports: vomiting. Denies: abdominal pain, nausea, diarrhea, melena, hematochezia Genitourinary: Reports: frequency. Denies: dysuria, hematuria, abnormal menses Musculoskeletal: Reports: myalgia. Denies: back pain, joint swelling Skin: Denies: rash Neurological: Denies: headache, weakness, numbness, paresthesias Past Medical History Past Medical History: Asthma, GERD/Reflux, Hypertension Additional Past Medical History / Comment(s): Ventral septal defect, overacitve bladder, sinus issues History of Any Multi-Drug Resistant Organisms: MRSA Date of last positivie culture/infection: 2012 MDRO Source:: buttocks Past Surgical History: No Surgical Hx Reported Past Anesthesia/Blood Transfusion Reactions: No Reported Reaction Past Psychological History: Depression Smoking Status: Never smoker, Second hand smoke exposure Past Alcohol Use History: None Reported, Occasional Past Drug Use History: None Reported - Past Family History Mother Family Medical History: GERD/Reflux General Exam Limitations: no limitations General appearance: alert, in no apparent distress Head exam: Present: atraumatic, normocephalic Eye exam: Present: normal appearance. Absent: scleral icterus, conjunctival injection ENT exam: Present: normal oropharynx Neck exam: Present: normal inspection, full ROM. Absent: meningismus Respiratory exam: Present: normal lung sounds bilaterally. Absent: respiratory distress, wheezes, rales, rhonchi, stridor Cardiovascular Exam: Present: normal rhythm, tachycardia, systolic murmur (There is a grade 1/6 systolic ejection murmur). Absent: diastolic murmur, rubs, gallop GI/Abdominal exam: Present: soft. Absent: distended, tenderness, guarding, rebound, rigid, mass Extremities exam: Present: normal inspection, normal capillary refill. Absent: pedal edema, calf tenderness Back exam: Present: normal inspection. Absent: CVA tenderness (R), CVA tendern ess (L) Neurological exam: Present: alert Skin exam: Present: warm, dry, intact, normal color. Absent: rash Course Vital Signs 09/03/20 09/04/20 21:56 00:00 Temperature 99.4 F Pulse Rate 116 H 82 Respiratory 20 18 Rate Blood Pressure 137/80 117/63 O2 Sat by Pulse 99 95 Oximetry Medical Decision Making - Lab Data Result diagrams: 09/03/20 22:59 09/03/20 22:59 Lab Results 09/03/20 09/03/20 09/03/20 Range/Units 22:59 22:59 22:59 WBC 7.6 (3.8-10.6) k/uL RBC 4.45 (3.80-5.40) m/uL Hgb 13.8 (11.4-16.0) gm/dL Hct 40.3 (34.0-46.0) % MCV 90.6 (80.0-100.0) fL MCH 31.0 (25.0-35.0) pg MCHC 34.2 (31.0-37.0) g/dL RDW 12.4 (11.5-15.5) % Plt Count 279 (150-450) k/uL MPV 7.0 Neutrophils % 86 % Lymphocytes % 6 % Monocytes % 7 % Eosinophils % 0 % Basophils % 1 % Neutrophils # 6.5 (1.3-7.7) k/uL Lymphocytes # 0.4 L (1.0-4.8) k/uL Monocytes # 0.5 (0-1.0) k/uL Eosinophils # 0.0 (0-0.7) k/uL Basophils # 0.0 (0-0.2) k/uL Sodium 137 (137-145) mmol/L Potassium 4.2 (3.5-5.1) mmol/L Chloride 102 (98-107) mmol/L Carbon Dioxide 30 (22-30) mmol/L Anion Gap 5 mmol/L BUN 15 (7-17) mg/dL Creatinine 0.78 (0.52-1.04) mg/dL Est GFR (CKD-EPI)AfAm >90 (>60 ml/min/1.73 sqM) Est GFR (CKD-EPI)NonAf >90 (>60 ml/min/1.73 sqM) Glucose 163 H (74-99) mg/dL Plasma Lactic Acid Vik 1.1 (0.7-2.0) mmol/L Calcium 8.9 (8.4-10.2) mg/dL Total Bilirubin 2.0 H (0.2-1.3) mg/dL AST 343 H (14-36) U/L ALT 266 H (4-34) U/L Alkaline Phosphatase 171 H (38-126) U/L Total Protein 6.7 (6.3-8.2) g/dL Albumin 3.6 (3.5-5.0) g/dL Urine Color Urine Appearance (Clear) Urine pH (5.0-8.0) Ur Specific [place] (1.001-1.035) Urine Protein (Negative) Urine Glucose (UA) (Negative) Urine Ketones (Negative) Urine Blood (Negative) Urine Nitrite (Negative) Urine Bilirubin (Negative) Urine Urobilinogen (<2.0) mg/dL Ur Leukocyte Esterase (Negative) Urine RBC (0-5) /hpf Urine WBC (0-5) /hpf Ur Squamous Epith Cells (0-4) /hpf Urine Bacteria (None) /hpf Urine Mucus (None) /hpf Urine HCG, Qual (Not Detectd) 09/03/20 09/03/20 Range/Units 22:59 22:59 WBC (3.8-10.6) k/uL RBC (3.80-5.40) m/uL Hgb (11.4-16.0) gm/dL Hct (34.0-46.0) % MCV (80.0-100.0) fL MCH (25.0-35.0) pg MCHC (31.0-37.0) g/dL RDW (11.5-15.5) % Plt Count (150-450) k/uL MPV Neutrophils % % Lymphocytes % % Monocytes % % Eosinophils % % Basophils % % Neutrophils # (1.3-7.7) k/uL Lymphocytes # (1.0-4.8) k/uL Monocytes # (0-1.0) k/uL Eosinophils # (0-0.7) k/uL Basophils # (0-0.2) k/uL Sodium (137-145) mmol/L Potassium (3.5-5.1) mmol/L Chloride (98-107) mmol/L Carbon Dioxide (22-30) mmol/L Anion Gap mmol/L BUN (7-17) mg/dL Creatinine (0.52-1.04) mg/dL Est GFR (CKD-EPI)AfAm (>60 ml/min/1.73 sqM) Est GFR (CKD-EPI)NonAf (>60 ml/min/1.73 sqM) Glucose (74-99) mg/dL Plasma Lactic Acid Vik (0.7-2.0) mmol/L Calcium (8.4-10.2) mg/dL Total Bilirubin (0.2-1.3) mg/dL AST (14-36) U/L ALT (4-34) U/L Alkaline Phosphatase (38-126) U/L Total Protein (6.3-8.2) g/dL Albumin (3.5-5.0) g/dL Urine Color Dark Yellow Urine Appearance Cloudy H (Clear) Urine pH 5.5 (5.0-8.0) Ur Specific [place] 1.033 (1.001-1.035) Urine Protein Trace H (Negative) Urine Glucose (UA) Negative (Negative) Urine Ketones Trace H (Negative) Urine Blood Negative (Negative) Urine Nitrite Negative (Negative) Urine Bilirubin 1+ H (Negative) Urine Urobilinogen 6.0 (<2.0) mg/dL Ur Leukocyte Esterase Negative (Negative) Urine RBC 1 (0-5) /hpf Urine WBC 2 (0-5) /hpf Ur Squamous Epith Cells 6 H (0-4) /hpf Urine Bacteria Rare H (None) /hpf Urine Mucus Moderate H (None) /hpf Urine HCG, Qual Not Detected (Not Detectd) Disposition Clinical Impression: Fever, Viral syndrome, Elevated transaminase measurement Disposition: HOME SELF-CARE Condition: Good Instructions (If sedation given, give patient instructions): Fever in Adults (ED), Viral Syndrome (ED) Is patient prescribed a controlled substance at d/c from ED?: No Referrals: Neena Fregoso MD [Primary Care Provider] - 1-2 days
[2020-09-03 23:19] LABS: Basophils % (A) 1 %; Eosinophils % (A) 0 %; HCT 40.3 % (34.0-46.0); HGB 13.8 gm/dL (11.4-16.0); Lymphocytes # (A) 0.4 k/uL (1.0-4.8); Lymphocytes % (A) 6 %; MCHC 34.2 g/dL (31.0-37.0); MCV 90.6 fL (80.0-100.0); Monocytes # (A) 0.5 k/uL (0-1.0); Monocytes % (A) 7 %; Neutrophils # (A) 6.5 k/uL (1.3-7.7); Neutrophils % (A) 86 %; Platelet Count 279 k/uL (150-450); RBC 4.45 m/uL (3.80-5.40); RDW 12.4 % (11.5-15.5); WBC 7.6 k/uL (3.8-10.6)
[2020-09-03 23:24] LABS: Appearance,Urine Cloudy (Clear); Bacteria,Urine Rare /hpf; Bilirubin,Urine 1+ (Negative); Blood,Urine Negative (Negative); Color,Urine Dark Yellow; Glucose,Urine (UA) Negative (Negative); Ketones,Urine Trace (Negative); Leukocyte Esterase,Urine Negative (Negative); Mucus,Urine Moderate /hpf; Nitrite,Urine Negative (Negative); PH, Urine 5.5 (5.0-8.0); Protein,Urine Trace (Negative); RBC,Urine 1 /hpf (0-5); Specific Gravity,Urine 1.033 (1.001-1.035); Squamous Epithelial Cell,Urine 6 /hpf (0-4); WBC,Urine 2 /hpf (0-5)
[2020-09-03 23:28] LABS: ALT 266 U/L (4-34); AST 343 U/L (14-36); African American GFR (CKD) >90 (>60 ml/min/1.73 sqM); Albumin 3.6 g/dL (3.5-5.0); Alkaline Phosphatase 171 U/L (38-126); Anion Gap 5 mmol/L; Blood Urea Nitrogen 15 mg/dL (7-17); Calcium 8.9 mg/dL (8.4-10.2); Carbon Dioxide 30 mmol/L (22-30); Chloride 102 mmol/L (98-107); Glucose 163 mg/dL (74-99); Non-African American GFR(CKD) >90 (>60 ml/min/1.73 sqM); Potassium 4.2 mmol/L (3.5-5.1); Sodium 137 mmol/L (137-145); Total Protein 6.7 g/dL (6.3-8.2)
--- NOTE | 2020-09-03 23:43 | XR ---
EXAMINATION TYPE: XR chest 1V portable DATE OF EXAM: 09/03/2020 COMPARISON: 04/14/2020 HISTORY: Fever TECHNIQUE: Single view FINDINGS: Heart and mediastinum are normal. Lungs are clear. Diaphragm is normal. Bony thorax appears normal. IMPRESSION: Normal chest. No change.
[2020-09-04 00:27] VITALS: RESP 18
[2020-09-04 01:43] VITALS: BP 122/67; PULSE 83; TEMP 100
== END 2020-09-04 01:39 | disposition home or self-care (01) ==
LOC: EC 21:47
DX: B34.9 Viral infection, unspecified (principal); R74.01 Elevation of levels of liver transaminase levels; R00.0 Tachycardia, unspecified; K21.9 Gastro-esophageal reflux disease without esophagitis; I10 Essential (primary) hypertension; Z20.822 Contact with and (suspected) exposure to COVID-19; Z79.899 Other long term (current) drug therapy; Z88.1 Allergy status to other antibiotic agents; Z88.5 Allergy status to narcotic agent; Z88.6 Allergy status to analgesic agent; Z77.22 Contact with and (suspected) exposure to environmental tobacco smoke (acute) (chronic); Z86.14 Personal history of Methicillin resistant Staphylococcus aureus infection
CPT/HCPCS: 36415; 80053; 83605; 85025; 81001; 81025; 71045; 99283; U0003; U0005

== ENCOUNTER → 2020-09-23 | Outpatient (CLI) | payer MEDICARE, OTHER ==
[2020-09-23 19:27] LABS: Basophils # (A) 0.03 X 10*3/uL (0.00-0.10); Basophils % (A) 0.4 %; Eosinophils # (A) 0.07 X 10*3/uL (0.04-0.35); HCT 40.7 % (37.2-46.3); HGB 13.1 g/dL (12.0-15.0); Lymphocytes # (A) 2.05 X 10*3/uL (0.90-5.00); MCH 29.7 pg (27.0-32.0); MCHC 32.2 g/dL (32.0-37.0); MCV 92.3 fL (80.0-97.0); Mean Platelet Volume 9.5 fL (9.5-12.2); Monocytes # (A) 0.68 X 10*3/uL (0.20-1.00); Monocytes % (A) 9.3 %; Neutrophils # (A) 4.49 X 10*3/uL (1.80-7.70); Neutrophils % (A) 61.2 %; Platelet Count 361 X 10*3/uL (140-440); RBC 4.41 X 10*6/uL (4.10-5.20); RDW 12.2 % (11.5-14.5); WBC 7.33 X 10*3/uL (4.50-10.00)
[2020-09-24 01:32] LABS: Anion Gap 9.5 mmol/L (4.00-12.00); Carbon Dioxide 28.5 mmol/L (21.6-31.8); Potassium 4.4 mmol/L (3.5-5.5)
== END | disposition home or self-care (01) ==
LOC: LABWHC1 12:31
PROVIDERS: ATTEND Orthopaedic Surgery
DX: Z01.818 Encounter for other preprocedural examination (principal); M23.91 Unspecified internal derangement of right knee
CPT/HCPCS: 36415; 80051; 85025

== ENCOUNTER 2020-10-13 08:48 | Day surgery (SDC) | payer MEDICARE, OTHER ==
[2020-10-07 15:01] VITALS: BMI 51.5
[~2020-10-13 08:48] MED LIST: DEXAMETHASONE SOD PHOSPHATE 4 MG/ML 1 ML VIAL IV ONE; LACTATED RINGERS 1,000 ML IV SCH; LIDOCAINE 1% (10MG/ML) FOR IV START INTRADERMA PRN; MIDAZOLAM 2 MG/2 ML VIAL IV PRN; ONDANSETRON 4 MG/2 ML VIAL IVP ONE; Pre Op ABX Message 1 EACH MISC MISCELLANE ONE
[2020-10-13] MEDS ORDERED: MIDAZOLAM 2 MG/2 ML VIAL ONE (09:50)
[2020-10-13] MEDS ORDERED: fentaNYL (PF) 50 MCG/ML 2 ML AMP ONE (09:50)
[2020-10-13] MEDS ORDERED: LIDOCAINE 1% INJ 10MG/ML (20 ML MDV) ONE (09:50)
[2020-10-13] MEDS ORDERED: KETAMINE 10 MG/ML 20 ML VIAL ONE (09:50)
[2020-10-13] MEDS ORDERED: KETOROLAC 15 MG/ML 1 ML VIAL ONE (09:50)
[2020-10-13] MEDS ORDERED: SUCCINYLCHOLINE CHLORIDE VIAL 200 MG/10 ML VIAL IV ONE (09:50)
[2020-10-13] MEDS ORDERED: PROPOFOL 10 MG/ML 20 ML VIAL IV ONE (09:50)
[2020-10-13] MEDS ORDERED: CLINDAMYCIN 150 MG/ML 4 ML VIAL IVPB ONE (10:06)
[2020-10-13] MEDS: HYDROmorphone 0.5 MG/0.5 ML SYRINGE IVP PRN ×4 (10:50→11:13)
[2020-10-13] MEDS ORDERED: diphenhydrAMINE 50 MG/ML 1 ML VIAL IVP ONE (10:57)
--- NOTE | 2020-10-13 10:57 | P.OP ---
Date of Procedure: 10/13/20 Preoperative Diagnosis: Right knee internal derangement Postoperative Diagnosis: Right knee ACL rupture/medial meniscal tear/reactive synovitis of the medial, lateral and patellofemoral compartments Procedure(s) Performed: Knee arthroscopic partial medial meniscectomy/ACL debridement/partial synovectomy of the medial, lateral, and patellofemoral compartments Anesthesia: NESS Surgeon: Reggie Parr Estimated Blood Loss (ml): 10 Pathology: none sent Condition: stable Disposition: PACU Indications for Procedure: The patient's a 44-year-old female who presents with persistent/progressive right knee pain after previous injury despite conservative measures. A discussion of the risks and benefits of operative intervention versus continued conservative measures was made with patient. She opted to proceed with surgery. Operative risks to include infection, neurovascular injury, development of blood clots, possible incomplete resolution of symptoms, possible persistent instability need for subsequent procedures was discussed. Informed consent was obtained. Operative Findings: As below Description of Procedure: The patient was brought to the operating room, and after induction of general anesthesia examined the right knee. Collaterals were stable, Belkys [id number] drawer was negative. The right lower extremity was prepped and draped in a normal fashion. A superior lateral portal was made through a 3 mm skin incision superior and lateral to the patella. This was used for outflow. A lateral portal was made through a 5 mm vertical skin incision lateral to the patella tendon above the joint line. Diagnostic arthroscopy was performed. On inspection of the medial compartment, a horizontal tear involving the posterior horn of the medial meniscus in the white-junction was noted. This was debrided back to stable base with straight baskets and a motorized shaver. The remaining medial meniscus was stable and intact. Minimal degenerative changes involving the medial compartment were noted. There was significant reactive synovitis involving the anterior medial compartment that was debrided with a motorized shaver. On inspection of the notch, the anterior cruciate ligament appeared to be ruptured off its femoral attachment. The remnant that was impinging on the lateral compartment was debrided back to a stable base with a motorized shaver. On inspection of the lateral compartment, no meniscal or cartilage pathology was noted. Again there was significant reactive synovitis involving anterolateral compartment there was debrided with a motorized shaver. On inspection of the patellofemoral articulation, there is chondral fibrillation however no loose chondral fragments. Reactive synovitis involving the patellofemoral articulation was debrided with motorized shaver. The gutters were clear debris. The knee was then thoroughly irrigated. The portals were closed with Steri-Strips. A sterile dressing was applied in addition to a compression stocking. The patient was awoken from general anesthesia and transferred to recovery room in good condition. Blood loss was estimated at 10 mL. No complications were incurred.
[2020-10-13 11:03] VITALS: RESP 16; TEMP 98
[2020-10-13] MEDS ORDERED: fentaNYL (PF) 50 MCG/ML 2 ML AMP IVP ONE (11:22)
[2020-10-13] MEDS ORDERED: HYDROcodone/APAP 7.5-325MG 1 EACH TAB PO ONE (11:43)
[2020-10-13] MEDS ORDERED: HYDROcodone/APAP 7.5-325MG 1 EACH TAB ONE (11:43)
[2020-10-13 12:28] VITALS: PULSE 73
[2020-10-13 12:49] VITALS: BP 127/82
== END 2020-10-13 13:21 | disposition home or self-care (01) ==
LOC: OR 08:48
PROVIDERS: ATTEND Orthopaedic Surgery
DX: S83.241A Other tear of medial meniscus, current injury, right knee, initial encounter (principal); S83.511A Sprain of anterior cruciate ligament of right knee, initial encounter; M65.861 Other synovitis and tenosynovitis, right lower leg; M17.11 Unilateral primary osteoarthritis, right knee; M94.8X6 Other specified disorders of cartilage, lower leg; I25.2 Old myocardial infarction; I10 Essential (primary) hypertension; I08.3 Combined rheumatic disorders of mitral, aortic and tricuspid valves; J45.909 Unspecified asthma, uncomplicated; M54.5 Low back pain; M54.2 Cervicalgia; R20.0 Anesthesia of skin; K21.9 Gastro-esophageal reflux disease without esophagitis; Z79.899 Other long term (current) drug therapy; Z79.891 Long term (current) use of opiate analgesic; Z88.5 Allergy status to narcotic agent; Z88.1 Allergy status to other antibiotic agents; X58.XXXA Exposure to other specified factors, initial encounter
CPT/HCPCS: 81025

== ENCOUNTER 2021-10-26 13:56 | Emergency (ER) | payer MEDICARE, OTHER ==
[2021-10-26 14:25] VITALS: TEMP 98.5
[2021-10-26 18:29] LABS: Appearance,Urine Clear (Clear); Bacteria,Urine Few /hpf; Bilirubin,Urine Negative (Negative); Blood,Urine Small (Negative); Color,Urine Yellow; Glucose,Urine (UA) Negative (Negative); Ketones,Urine Negative (Negative); Leukocyte Esterase,Urine Trace (Negative); Mucus,Urine Rare /hpf; Nitrite,Urine Negative (Negative); PH, Urine 5.5 (5.0-8.0); Protein,Urine Negative (Negative); RBC,Urine 2 /hpf (0-5); Specific Gravity,Urine 1.019 (1.001-1.035); Squamous Epithelial Cell,Urine 6 /hpf (0-4); Urobilinogen,Urine <2.0 mg/dL (<2.0); WBC,Urine 6 /hpf (0-5)
[2021-10-26] MEDS ORDERED: SODIUM CHLORIDE 0.9% 1,000 ML IV STA (18:52)
--- NOTE | 2021-10-26 19:56 | XR ---
EXAMINATION TYPE: XR abdomen acute w cxr DATE OF EXAM: 10/26/2021 COMPARISON: 09/03/2020 HISTORY: Chest abdominal pain with diarrhea. TECHNIQUE: Supine, upright, and left side down lateral decubitus views of the abdomen are obtained. FINDINGS: There is no evidence for pneumoperitoneum. The bowel gas pattern is unremarkable as there is air throughout nondilated small and large bowel. No sizeable air fluid levels. No mass effects are seen. No unusual calcifications. The lungs are clear. Normal cardiomediastinal silhouette. No pleural effu immanuel or pneumothorax. IMPRESSION: No acute process.
--- NOTE | 2021-10-26 20:15 | ED ---
General Adult HPI - General Chief complaint: Urogenital Stated complaint: CHILLS, CAN'T HOLD BOWEL Time Seen by Provider: 10/26/21 18:05 Source: patient Mode of arrival: ambulatory Limitations: no limitations - History of Present Illness Initial comments: Patient is a 45-year-old female presenting with multiple complaints. Patient is currently being treated for UTI with ciprofloxacin, this is her second round of antibiotics for this current UTI. Patient states that she has been checking her temperature at home and it has been approximately 99 F and "my temperature normally runs around 97 or 96", which raised concern for her. Patient also admits to nausea with no vomiting. She had one episode of diarrhea without blood or mucus today. She is complaining of reproducible chest pain located on the right side. It does not change with position, exertion, or arm movement. She admits to congestion and sinus pressure. She denies cough, abdominal pain, shortness of breath, headache, vision changes, neck pain or stiffness, vomiting, hemoptysis, hematochezia, hematemesis, palpitations, dysuria, hematuria, pelvic pain, CARLOS, congestion, eye pain, dysuria, hematuria, flank pain, dizziness, numbness, tingling, weakness, rash. - Related Data Home Medications Medication Instructions Recorded Confirmed HYDROcodone/APAP 7.5-325MG [[place] 1 tab PO BID PRN 02/28/20 10/26/21 7.5-325] Albuterol Inhaler [Ventolin Hfa 2 puff INHALATION RT-QID PRN 10/01/20 10/26/21 Inhaler] Butalb/APAP/Caff 50-325-40Mg 1 tab PO Q4H PRN 10/26/21 10/26/21 [Fioricet 50-325-40] Fluticasone Nasal [place] [Flonase 2 spray EA NOSTRIL BID PRN 10/26/21 10/26/21 Nasal [place]] Levocetirizine Dihydrochloride 5 mg PO DAILY PRN 10/26/21 10/26/21 [Xyzal] Levofloxacin [Levaquin] 500 mg PO DAILY 10/26/21 10/26/21 Losartan Potassium [Cozaar] 100 mg PO DAILY 10/26/21 10/26/21 Montelukast [Singulair] 10 mg PO DAILY PRN 10/26/21 10/26/21 Previous Rx's Medication Instructions Recorded Nitroglycerin Sl Tabs [Nitrostat] 0.4 mg SUBLINGUAL Q5M PRN #10 tab 05/21/20 Allergies Allergy/AdvReac Type Severity Reaction Status Date / Time adhesive Allergy Rash/Hives Verified 10/26/21 22:50 cephalexin monohydrate Allergy Rash/Hives Verified 10/26/21 22:50 [From Keflex] codeine Allergy Dyspnea Verified 10/26/21 22:50 tramadol Allergy Dyspnea Verified 10/26/21 22:50 Review of Systems ROS Statement: Those systems with pertinent positive or pertinent negative responses have been documented in the HPI. ROS Other: All systems not noted in ROS Statement are negative. Past Medical History Past Medical History: Asthma, GERD/Reflux, Hypertension, Musculoskeletal Disorder Additional Past Medical History / Comment(s): Ventral septal defect, overactive bladder, frequent UTI's, & has had kidney infections, sinus issues, injury to right knee History of Any Multi-Drug Resistant Organisms: MRSA Date of last positivie culture/infection: 2012 MDRO Source:: buttocks Past Surgical History: No Surgical Hx Reported Additional Past Surgical History / Comment(s): some sort of surgery to remove wound/sore from buttocks Past Anesthesia/Blood Transfusion Reactions: No Reported Reaction Past Psychological History: Depression Smoking Status: Never smoker, Second hand smoke exposure - Past Family History Mother Family Medical History: GERD/Reflux General Exam Limitations: no limitations General appearance: alert, in no apparent distress Head exam: Present: atraumatic, normocephalic, normal inspection Eye exam: Present: normal appearance, PERRL, EOMI. Absent: scleral icterus, conjunctival injection, periorbital swelling ENT exam: Present: normal exam, mucous membranes moist, TM's normal bilaterally, normal external ear exam Neck exam: Present: normal inspection Respiratory exam: Present: normal lung sounds bilaterally. Absent: respiratory distress, wheezes, rales, rhonchi, stridor Cardiovascular Exam: Present: regular rate, normal rhythm, systolic murmur (Right sternal border). Absent: diastolic murmur, rubs, gallop, clicks GI/Abdominal exam: Present: soft, tenderness (Mild RUQ tenderness), normal bowel sounds. Absent: distended, guarding, rebound, rigid Back exam: Present: normal inspection. Absent: CVA tenderness (R), CVA tenderness (L) Neurological exam: Present: alert, oriented X3, CN II-XII intact Psychiatric exam: Present: normal affect, normal mood Skin exam: Present: warm, dry, intact, normal color. Absent: rash Course Vital Signs 10/26/21 10/26/21 14:20 22:00 Temperature 98.5 F Pulse Rate 92 84 Respiratory 18 20 Rate Blood Pressure 132/68 128/66 O2 Sat by Pulse 97 98 Oximetry - Reevaluation(s) Reevaluation #1: Evaluation patient with Dr. Klein. Patient is still complaining of mild reproducible chest pain. Patient is in no acute distress and is resting comfortably. 10/27/21 01:00 EKG Findings - EKG Results: EKG: interpreted by DIANA BARROS, sinus rhythm Medical Decision Making - Medical Decision Making Patient is a 45-year-old female presenting with multiple complaints. Patient states that she has had a fever of 99F and is currently being treated for UTI with her second round of antibiotics. She is several days into her course of levofloxacin. She also admits to reproducible chest pain along the right sternal border. She had one episode of diarrhea today, and nausea throughout the day with no vomiting. She denies shortness of breath, abdominal pain, palpitations, hemoptysis, hematochezia. On exam systolic murmur heard on the right sternal border. Chest pain is reproducible with palpation Patient expresses mild tenderness of the right upper quadrant with deep palpation. EKG is unremarkable. Lab work is within normal limits. UA correlates clinically with UTI mid-treatment. Acute abdominal series with CXR is unremarkable. Patient was given 15 mg IV push Toradol for pain control. Advised outpatient follow-up with primary care and cardiology in one to 2 days. May take Motrin and Tylenol for pain control as needed. Discussed return parameters. Report back to ER with worsening symptoms or new onset alarming symptoms. Questions were answered. Patient conveyed verbal understanding and agreed to the plan. This case was discussed with and evaluated by my attending Dr. Olvera. - Lab Data Result diagrams: 10/26/21 22:13 10/26/21 22:13 Lab Results 10/26/21 10/26/21 10/26/21 Range/Units 17:20 17:20 19:12 WBC (3.8-10.6) k/uL RBC (3.80-5.40) m/uL Hgb (11.4-16.0) gm/dL Hct (34.0-46.0) % MCV (80.0-100.0) fL MCH (25.0-35.0) pg MCHC (31.0-37.0) g/dL RDW (11.5-15.5) % Plt Count (150-450) k/uL MPV Neutrophils % % Lymphocytes % % Monocytes % % Eosinophils % % Basophils % % Neutrophils # (1.3-7.7) k/uL Lymphocytes # (1.0-4.8) k/uL Monocytes # (0-1.0) k/uL Eosinophils # (0-0.7) k/uL Basophils # (0-0.2) k/uL Sodium (137-145) mmol/L Potassium (3.5-5.1) mmol/L Chloride (98-107) mmol/L Carbon Dioxide (22-30) mmol/L Anion Gap mmol/L BUN (7-17) mg/dL Creatinine (0.52-1.04) mg/dL Est GFR (CKD-EPI)AfAm (>60 ml/min/1.73 sqM) Est GFR (CKD-EPI)NonAf (>60 ml/min/1.73 sqM) Glucose (74-99) mg/dL Calcium (8.4-10.2) mg/dL Total Bilirubin (0.2-1.3) mg/dL AST (14-36) U/L ALT (4-34) U/L Alkaline Phosphatase (38-126) U/L Troponin I (0.000-0.034) ng/mL Total Protein (6.3-8.2) g/dL Albumin (3.5-5.0) g/dL Amylase (30-110) U/L Lipase (23-300) U/L Urine Color Yellow Urine Appearance Clear (Clear) Urine pH 5.5 (5.0-8.0) Ur Specific [place] 1.019 (1.001-1.035) Urine Protein Negative (Negative) Urine Glucose (UA) Negative (Negative) Urine Ketones Negative (Negative) Urine Blood Small H (Negative) Urine Nitrite Negative (Negative) Urine Bilirubin Negative (Negative) Urine Urobilinogen <2.0 (<2.0) mg/dL Ur Leukocyte Esterase Trace H (Negative) Urine RBC 2 (0-5) /hpf Urine WBC 6 H (0-5) /hpf Ur Squamous Epith Cells 6 H (0-4) /hpf Urine Bacteria Few H (None) /hpf Urine Mucus Rare H (None) /hpf Urine HCG, Qual Not Detected (Not Detectd) Coronavirus (PCR) Not Detected (Not Detectd) 10/26/21 10/26/21 10/26/21 Range/Units 22:13 22:13 22:13 WBC 7.5 (3.8-10.6) k/uL RBC 4.09 (3.80-5.40) m/uL Hgb 12.9 (11.4-16.0) gm/dL Hct 38.0 (34.0-46.0) % MCV 93.0 (80.0-100.0) fL MCH 31.5 (25.0-35.0) pg MCHC 33.9 (31.0-37.0) g/dL RDW 12.9 (11.5-15.5) % Plt Count 333 (150-450) k/uL MPV 7.1 Neutrophils % 57 % Lymphocytes % 34 % Monocytes % 6 % Eosinophils % 2 % Basophils % 1 % Neutrophils # 4.3 (1.3-7.7) k/uL Lymphocytes # 2.5 (1.0-4.8) k/uL Monocytes # 0.4 (0-1.0) k/uL Eosinophils # 0.1 (0-0.7) k/uL Basophils # 0.0 (0-0.2) k/uL Sodium 135 L (137-145) mmol/L Potassium 4.0 (3.5-5.1) mmol/L Chloride 104 (98-107) mmol/L Carbon Dioxide 23 (22-30) mmol/L Anion Gap 8 mmol/L BUN 14 (7-17) mg/dL Creatinine 0.66 (0.52-1.04) mg/dL Est GFR (CKD-EPI)AfAm >90 (>60 ml/min/1.73 sqM) Est GFR (CKD-EPI)NonAf >90 (>60 ml/min/1.73 sqM) Glucose 114 H (74-99) mg/dL Calcium 8.9 (8.4-10.2) mg/dL Total Bilirubin 0.8 (0.2-1.3) mg/dL AST 24 (14-36) U/L ALT 22 (4-34) U/L Alkaline Phosphatase 60 (38-126) U/L Troponin I <0.012 (0.000-0.034) ng/mL Total Protein 7.0 (6.3-8.2) g/dL Albumin 3.9 (3.5-5.0) g/dL Amylase 37 (30-110) U/L Lipase 78 (23-300) U/L Urine Color Urine Appearance (Clear) Urine pH (5.0-8.0) Ur Specific [place] (1.001-1.035) Urine Protein (Negative) Urine Glucose (UA) (Negative) Urine Ketones (Negative) Urine Blood (Negative) Urine Nitrite (Negative) Urine Bilirubin (Negative) Urine Urobilinogen (<2.0) mg/dL Ur Leukocyte Esterase (Negative) Urine RBC (0-5) /hpf Urine WBC (0-5) /hpf Ur Squamous Epith Cells (0-4) /hpf Urine Bacteria (None) /hpf Urine Mucus (None) /hpf Urine HCG, Qual (Not Detectd) Coronavirus (PCR) (Not Detectd) When compared to previous EKG there are: no significant change Interpretation: no acute changes - Radiology Data Radiology results: report reviewed Acute abdominal series with CXR showed no acute process Disposition Clinical Impression: Costochondral chest pain Disposition: HOME SELF-CARE Condition: Good Instructions (If sedation given, give patient instructions): Chest Pain (ED), Costochondritis (ED) Additional Instructions: Follow-up with primary care in 1-2 days. Follow up with r programmer in 1-2 days Take Motrin or Tylenol as needed for pain control. Eat diet consisting of bland foods, avoid caffeine, alcohol, high sugar or fat, acidic foods. Return to ER if experiencing worsening symptoms or new onset alarming symptoms, including but not limited to shortness of breath, palpitations, chest pain is not reproduced, pain in the left arm or side of the neck, nausea, vomiting, fever, chills. Is patient prescribed a controlled substance at d/c from ED?: No Referrals: Nenea Fregoso MD [Primary Care Provider] - 1-2 days Time of Disposition: 01:02
[2021-10-26 22:35] VITALS: BP 128/66; PULSE 84; RESP 20
[2021-10-26 22:39] LABS: Basophils % (A) 1 %; Eosinophils # (A) 0.1 k/uL (0-0.7); Eosinophils % (A) 2 %; HGB 12.9 gm/dL (11.4-16.0); Lymphocytes # (A) 2.5 k/uL (1.0-4.8); Lymphocytes % (A) 34 %; MCH 31.5 pg (25.0-35.0); MCHC 33.9 g/dL (31.0-37.0); Mean Platelet Volume 7.1; Monocytes # (A) 0.4 k/uL (0-1.0); Monocytes % (A) 6 %; Neutrophils # (A) 4.3 k/uL (1.3-7.7); Neutrophils % (A) 57 %; Platelet Count 333 k/uL (150-450); RBC 4.09 m/uL (3.80-5.40); RDW 12.9 % (11.5-15.5); WBC 7.5 k/uL (3.8-10.6)
[2021-10-26 23:08] LABS: ALT 22 U/L (4-34); AST 24 U/L (14-36); African American GFR (CKD) >90 (>60 ml/min/1.73 sqM); Albumin 3.9 g/dL (3.5-5.0); Alkaline Phosphatase 60 U/L (38-126); Amylase 37 U/L (30-110); Anion Gap 8 mmol/L; Blood Urea Nitrogen 14 mg/dL (7-17); Calcium 8.9 mg/dL (8.4-10.2); Carbon Dioxide 23 mmol/L (22-30); Chloride 104 mmol/L (98-107); Glucose 114 mg/dL (74-99); Lipase 78 U/L (23-300); Non-African American GFR(CKD) >90 (>60 ml/min/1.73 sqM); Sodium 135 mmol/L (137-145); Total Bilirubin 0.8 mg/dL (0.2-1.3)
[2021-10-27] MEDS ORDERED: KETOROLAC 15 MG/ML 1 ML VIAL IVP STA (00:02)
== END 2021-10-27 01:30 | disposition home or self-care (01) ==
LOC: EC 13:56
DX: R07.1 Chest pain on breathing (principal); R11.0 Nausea; R19.7 Diarrhea, unspecified; I10 Essential (primary) hypertension; J45.909 Unspecified asthma, uncomplicated; Z77.22 Contact with and (suspected) exposure to environmental tobacco smoke (acute) (chronic); Z79.899 Other long term (current) drug therapy; Z20.822 Contact with and (suspected) exposure to COVID-19; Z91.09 Other allergy status, other than to drugs and biological substances; Z88.1 Allergy status to other antibiotic agents; Z88.5 Allergy status to narcotic agent
CPT/HCPCS: 36415; 93005; 80053; 82150; 83690; 84484; 85025; 81001; 81025; 87635; 74022; 99284; 96374; 96361; J1885

== ENCOUNTER → 2022-04-21 | Outpatient (CLI) | payer MEDICARE, OTHER ==
--- NOTE | 2022-04-21 11:47 | US ---
EXAMINATION TYPE: US kidneys/renal and bladder DATE OF EXAM: 04/21/2022 COMPARISON: CT 2017 CLINICAL HISTORY: N39.9 DISORDER OF URINARY SYSTEM. Patient states having frequent UTI's. No flank pain. EXAM MEASUREMENTS: Right Kidney: 10.9 x 5.0 x 5.1 cm Left Kidney: 9.5 x 5.3 x 5.8 cm Limited exam due to patient body habitus and bowel gas- difficult to penetrate Right Kidney: No hydronephrosis or masses seen. Dromedary hump seen. Left Kidney: No hydronephrosis or masses seen. Dromedary hump seen. Bladder: distended, anechoic Bilateral Jets seen Exam suboptimal due to large body habitus and overlying bowel gas. Kidney size is within normal limit s. No obvious hydronephrosis. Bladder is adequately distended without intraluminal mass or wall thick ening. IMPRESSION: Suboptimal study without hydronephrosis identified bilaterally.
== END | disposition home or self-care (01) ==
LOC: RADUSWWP 10:26
PROVIDERS: ATTEND Urology
DX: N39.9 Disorder of urinary system, unspecified (principal)
CPT/HCPCS: 76770

== ENCOUNTER 2022-07-03 15:59 | Emergency (ER) | payer MEDICARE, OTHER ==
--- NOTE | 2022-07-03 16:33 | ED ---
General Adult HPI - General Chief complaint: Nausea/Vomiting/Diarrhea Stated complaint: Acid Reflux,Vomiting Time Seen by Provider: 07/03/22 16:13 Source: patient Mode of arrival: ambulatory Limitations: no limitations - History of Present Illness Initial comments: Patient presents to the ED complaining of having "acid reflux" since about 9 PM last night. Patient states that she has had symptoms of epigastric pain radiating to her chest and nausea. Patient also states that she has "vomited up acid" a couple of times today. Patient denies trauma or injury, fever or chills, headache, focal neuro deficit, neck/arm/jaw/back pain, pleuritic pain, dyspnea, cough or cold symptoms, palpitations, dizziness, diaphoresis, diarrhea or constipation, bloody or melanotic stool, hematemesis, dysuria or urinary symptoms, leg or calf swelling or pain, or any other symptoms or complaints. - Related Data Home Medications Medication Instructions Recorded Confirmed HYDROcodone/APAP 7.5-325MG [[place] 1 tab PO BID PRN 02/28/20 07/03/22 7.5-325] Albuterol Inhaler [Ventolin Hfa 2 puff INHALATION RT-QID PRN 10/01/20 07/03/22 Inhaler] Fluticasone Nasal [place] [Flonase 2 spray EA NOSTRIL BID PRN 10/26/21 07/03/22 Nasal [place]] Levocetirizine Dihydrochloride 5 mg PO HS 10/26/21 07/03/22 [Xyzal] Losartan Potassium [Cozaar] 100 mg PO DAILY 10/26/21 07/03/22 Sertraline [Zoloft] 50 mg PO DAILY 07/03/22 07/03/22 Solifenacin Succinate [Vesicare] 10 mg PO DAILY 07/03/22 07/03/22 Topiramate 50 mg PO HS 07/03/22 07/03/22 Previous Rx's Medication Instructions Recorded Nitroglycerin Sl Tabs [Nitrostat] 0.4 mg SUBLINGUAL Q5M PRN #10 tab 05/21/20 Omeprazole [PriLOSEC] 40 mg PO DAILY #14 cap 07/03/22 Allergies Allergy/AdvReac Type Severity Reaction Status Date / Time adhesive Allergy Rash/Hives Verified 07/03/22 19:16 cephalexin monohydrate Allergy Rash/Hives Verified 07/03/22 19:16 [From Keflex] codeine Allergy Dyspnea Verified 07/03/22 19:16 tramadol Allergy Dyspnea Verified 07/03/22 19:16 Review of Systems ROS Statement: Those systems with pertinent positive or pertinent negative responses have been documented in the HPI. ROS Other: All systems not noted in ROS Statement are negative. Past Medical History Past Medical History: Asthma, GERD/Reflux, Hypertension, Musculoskeletal Disorder Additional Past Medical History / Comment(s): Ventral septal defect, overactive bladder, frequent UTI's, & has had kidney infections, sinus issues, injury to right knee History of Any Multi-Drug Resistant Organisms: MRSA Date of last positivie culture/infection: 2012 MDRO Source:: buttocks Past Surgical History: No Surgical Hx Reported Additional Past Surgical History / Comment(s): some sort of surgery to remove wound/sore from buttocks Past Anesthesia/Blood Transfusion Reactions: No Reported Reaction Past Psychological History: Depression Smoking Status: Never smoker, Second hand smoke exposure Past Alcohol Use History: None Reported Past Drug Use History: None Reported - Past Family History Mother Family Medical History: GERD/Reflux General Exam Limitations: no limitations General appearance: alert, in no apparent distress Head exam: Present: atraumatic, normocephalic Eye exam: Present: normal appearance, EOMI ENT exam: Present: mucous membranes moist Neck exam: Present: other (Trachea is in midline) Respiratory exam: Present: normal lung sounds bilaterally. Absent: respiratory distress, wheezes, rales, rhonchi, stridor, chest wall tenderness Cardiovascular Exam: Present: regular rate, normal rhythm, normal heart sounds, other (Normal radial pulses bilaterally) GI/Abdominal exam: Present: soft, normal bowel sounds, other (Obese abdomen; mild epigastric abdominal tenderness). Absent: guarding, rebound Extremities exam: Absent: tenderness, pedal edema Neurological exam: Present: alert, oriented X3. Absent: motor sensory deficit Psychiatric exam: Present: normal affect, normal mood Skin exam: Present: warm, dry, intact, normal color Course Vital Signs 07/03/22 16:05 Temperature 98.5 F Pulse Rate 78 Respiratory 20 Rate Blood Pressure 182/96 O2 Sat by Pulse 99 Oximetry - Reevaluation(s) Reevaluation #1: 07/03/22 20:29 Patient states that her symptoms have improved with ED treatment, and she denies development of any new symptoms while in the ED. Patient's abdomen remains soft and without any surgical signs on exam. Patient remains alert and breathing comfortably. Patient is aware of her test results, and she feels comfortable being discharged home at this time. Patient was counseled about gastroesophageal reflux, and she was clearly explained return and follow-up instructions. Patient feels comfortable with this plan. Patient was instructed to follow up closely with her primary care provider. EKG Findings - EKG Comments: EKG Findings:: Normal sinus rhythm, ventricular rate of 68 bpm, normal NM and QRS intervals, normal QT interval, possible LVH, normal axis, no ST or T-wave abnormality Medical Decision Making - Medical Decision Making Patient's labs and imaging studies are all fairly unremarkable. Patient has a soft and benign abdominal exam. Patient reports having acid reflux, which I suspect is the etiology of her symptoms. I do not suspect an emergent medical condition at this time. Will discharge patient home with a prescription for a PPI and instructions to follow up closely with her primary care provider. Patient feels comfortable with this plan. - Lab Data Result diagrams: 07/03/22 16:58 07/03/22 16:58 Lab Results 07/03/22 07/03/22 07/03/22 Range/Units 16:58 16:58 16:58 WBC 10.3 (3.8-10.6) k/uL RBC 4.48 (3.80-5.40) m/uL Hgb 14.2 (11.4-16.0) gm/dL Hct 40.6 (34.0-46.0) % MCV 90.6 (80.0-100.0) fL MCH 31.6 (25.0-35.0) pg MCHC 34.9 (31.0-37.0) g/dL RDW 12.1 (11.5-15.5) % Plt Count 340 (150-450) k/uL MPV 7.4 Neutrophils % 86 % Lymphocytes % 10 % Monocytes % 3 % Eosinophils % 0 % Basophils % 0 % Neutrophils # 8.8 H (1.3-7.7) k/uL Lymphocytes # 1.0 (1.0-4.8) k/uL Monocytes # 0.3 (0-1.0) k/uL Eosinophils # 0.0 (0-0.7) k/uL Basophils # 0.0 (0-0.2) k/uL Sodium 137 (137-145) mmol/L Potassium 4.2 (3.5-5.1) mmol/L Chloride 104 (98-107) mmol/L Carbon Dioxide 26 (22-30) mmol/L Anion Gap 7 mmol/L BUN 13 (7-17) mg/dL Creatinine 0.72 (0.52-1.04) mg/dL Est GFR (CKD-EPI)AfAm >90 (>60 ml/min/1.73 sqM) Est GFR (CKD-EPI)NonAf >90 (>60 ml/min/1.73 sqM) Glucose 147 H (74-99) mg/dL Calcium 9.1 (8.4-10.2) mg/dL Total Bilirubin 0.8 (0.2-1.3) mg/dL AST 25 (14-36) U/L ALT 27 (4-34) U/L Alkaline Phosphatase 80 (38-126) U/L Troponin I <0.012 (0.000-0.034) ng/mL Total Protein 6.8 (6.3-8.2) g/dL Albumin 4.0 (3.5-5.0) g/dL Lipase 60 (23-300) U/L HCG, Qual Not Detected - Radiology Data Chest x-ray: No active cardiopulmonary disease. No change. Noncontrast CT abdomen/pelvis: No acute abnormality in the abdomen and pelvis. Normal appendix. Fat-containing umbilical hernia appears new compared to old exam. Disposition Clinical Impression: Gastroesophageal reflux Disposition: HOME SELF-CARE Condition: Stable Instructions (If sedation given, give patient instructions): GERD (Gastroesophageal Reflux Disease) (ED), Acute Nausea and Vomiting (ED) Additional Instructions: Return to the ER immediately should you develop new or worsening pain, persistent vomiting, a fever, shortness of breath, feeling dizzy or faint, or new or worsening symptoms. Follow up closely with your primary care provider. Prescriptions: Omeprazole [PriLOSEC] 40 mg PO DAILY #14 cap Is patient prescribed a controlled substance at d/c from ED?: No Referrals: Sherri Santana MD [Primary Care Provider] - 1-2 days Time of Disposition: 20:35
[2022-07-03] MEDS ORDERED: MAG HYDROX/AL HYDROX/SIMETH 30 ML, HYOSCYAMINE ELIXIR 10 ML, LIDOCAINE VISCOUS 2% 10 ML PO STA ×3 (16:44)
[2022-07-03] MEDS ORDERED: ONDANSETRON ODT 4 MG TAB PO STA (16:46)
[2022-07-03 17:11] LABS: Basophils % (A) 0 %; Eosinophils % (A) 0 %; HCT 40.6 % (34.0-46.0); HGB 14.2 gm/dL (11.4-16.0); Lymphocytes % (A) 10 %; MCH 31.6 pg (25.0-35.0); MCHC 34.9 g/dL (31.0-37.0); MCV 90.6 fL (80.0-100.0); Mean Platelet Volume 7.4; Monocytes # (A) 0.3 k/uL (0-1.0); Monocytes % (A) 3 %; Neutrophils # (A) 8.8 k/uL (1.3-7.7); Neutrophils % (A) 86 %; Platelet Count 340 k/uL (150-450); RBC 4.48 m/uL (3.80-5.40); RDW 12.1 % (11.5-15.5); WBC 10.3 k/uL (3.8-10.6)
[2022-07-03 17:14] LABS: HCG,Qualitative Serum Not Detected
[2022-07-03 17:17] LABS: ALT 27 U/L (4-34); AST 25 U/L (14-36); African American GFR (CKD) >90 (>60 ml/min/1.73 sqM); Alkaline Phosphatase 80 U/L (38-126); Anion Gap 7 mmol/L; Blood Urea Nitrogen 13 mg/dL (7-17); Calcium 9.1 mg/dL (8.4-10.2); Carbon Dioxide 26 mmol/L (22-30); Chloride 104 mmol/L (98-107); Glucose 147 mg/dL (74-99); Lipase 60 U/L (23-300); Non-African American GFR(CKD) >90 (>60 ml/min/1.73 sqM); Potassium 4.2 mmol/L (3.5-5.1); Sodium 137 mmol/L (137-145); Total Bilirubin 0.8 mg/dL (0.2-1.3); Total Protein 6.8 g/dL (6.3-8.2)
--- NOTE | 2022-07-03 17:40 | XR ---
EXAMINATION TYPE: XR chest 2V DATE OF EXAM: 07/03/2022 COMPARISON: 09/03/2020 HISTORY: Vomiting TECHNIQUE: FINDINGS: Heart is normal. Lungs are clear. Diaphragm is normal. Bony thorax is intact. There are marline st leads. IMPRESSION: No active cardiopulmonary disease. No change.
--- NOTE | 2022-07-03 20:16 | CT ---
EXAMINATION TYPE: CT abdomen pelvis wo con DATE OF EXAM: 07/03/2022 COMPARISON: 01/02/2017 HISTORY: pain CT DLP: 1935 mGycm Automated exposure control for dose reduction was used. Images obtained from the diaphragm to the floor the pelvis without contrast. Lung bases are clear. No pleural effusion. Heart size is normal. No pericardial effusion. Liver spleen and stomach gallbladder pancreas appear intact. The bile ducts are not dilated. There is no adrenal mass. Kidneys of normal size. No hydronephrosis. Ureters are not dilated. Appendi x is anterior and appears normal. There is a 4 cm fat-containing umbilical hernia. The bladder disten ds smoothly. Uterus is anteverted. No pelvic mass. No free fluid in the pelvis. There is no mesenteric edema. No ascites or free air. No sign of a bowel obstruction. There is no ret roperitoneal adenopathy. The lumbar vertebrae have normal alignment. No compression fracture. Posterior elements are intact. T here is L5-S1 disc space narrowing and vacuum disc. The hip joints are intact. Sacroiliac joints are intact. IMPRESSION: No acute abnormality in the abdomen pelvis. Normal appendix. Fat containing umbilical hernia appears new compared to old exam.
[2022-07-03 20:44] VITALS: BP 154/70; PULSE 74; RESP 18; TEMP 98.2
[2022-07-03] MEDS ORDERED: ONDANSETRON 4 MG ODT STARTER PACK 2 TAB BTL PO STA (20:45)
== END 2022-07-03 20:49 | disposition home or self-care (01) ==
LOC: EC 15:59
DX: J45.909 Unspecified asthma, uncomplicated (principal); K21.9 Gastro-esophageal reflux disease without esophagitis; I10 Essential (primary) hypertension; F32.A Depression, unspecified; Z79.51 Long term (current) use of inhaled steroids; Z79.899 Other long term (current) drug therapy; Z79.811 Long term (current) use of aromatase inhibitors; Z88.1 Allergy status to other antibiotic agents; Z88.5 Allergy status to narcotic agent; Z91.048 Other nonmedicinal substance allergy status; Z77.22 Contact with and (suspected) exposure to environmental tobacco smoke (acute) (chronic)
CPT/HCPCS: 99284 ×2; 36415; 93005; 80053; 83690; 84484; 85025; 84703; 71046; 74176; S0119

== ENCOUNTER 2022-12-07 12:03 | Emergency (ER) | payer MEDICARE, OTHER ==
[2022-12-07] MEDS ORDERED: IPRATROPIUM-ALBUTEROL 3 ML NEB INHALATION STA (12:30)
--- NOTE | 2022-12-07 12:40 | ED ---
URI HPI - General Chief Complaint: Upper Respiratory Infection Stated Complaint: cough Time Seen by Provider: 12/07/22 12:15 Source: patient, RN notes reviewed Mode of arrival: ambulatory Limitations: no limitations - History of Present Illness Initial Comments: 47-year-old female with a history of asthma who states she's been suffering from a cough with some phlegm production which began around the of this month. She saw her doctor last week and was placed on prednisone and doxycycline. She states she's not getting much better she still having cough with phlegm that ranges from yellow to white to clear she does states she still having fevers chills and sweats. She denies smoking but she does state her boyfriend does smoke and his car but not in house. Additionally she does have a roommate with similar symptoms. No chest pain no abdominal pain she does states that at times she feels like her throat is closing up due to the cough and other symptoms. Patient stated 2 days ago she did have a lot of coughing a cough up some flecks of bright red blood. She also states that when she started doctor she was thought to either had pneumonia and/or bronchitis. No other current complaints modifying factors MD Complaint: fever, cough, other - Related Data Home Medications Medication Instructions Recorded Confirmed HYDROcodone/APAP 7.5-325MG [[place] 1 tab PO BID PRN 02/28/20 07/03/22 7.5-325] Albuterol Inhaler [Ventolin Hfa 2 puff INHALATION RT-QID PRN 10/01/20 07/03/22 Inhaler] Fluticasone Nasal [place] [Flonase 2 spray EA NOSTRIL BID PRN 10/26/21 07/03/22 Nasal [place]] Levocetirizine Dihydrochloride 5 mg PO HS 10/26/21 07/03/22 [Xyzal] Losartan Potassium [Cozaar] 100 mg PO DAILY 10/26/21 07/03/22 Sertraline [Zoloft] 50 mg PO DAILY 07/03/22 07/03/22 Solifenacin Succinate [Vesicare] 10 mg PO DAILY 07/03/22 07/03/22 Topiramate 50 mg PO HS 07/03/22 07/03/22 Previous Rx's Medication Instructions Recorded Nitroglycerin Sl Tabs [Nitrostat] 0.4 mg SUBLINGUAL Q5M PRN #10 tab 05/21/20 Omeprazole [PriLOSEC] 40 mg PO DAILY #14 cap 07/03/22 Ipratropium/Albuter 20-100Mcg 1 puff INHALATION QID #4 gm 12/07/22 [Combivent Respimat 20-100Mcg Inhaler] Levofloxacin [Levaquin] 500 mg PO DAILY 1 Days #10 tab 12/07/22 predniSONE [Deltasone] 20 mg PO BID #10 tab 12/07/22 Allergies Allergy/AdvReac Type Severity Reaction Status Date / Time adhesive Allergy Rash/Hives Verified 12/07/22 12:15 cephalexin monohydrate Allergy Rash/Hives Verified 12/07/22 12:15 [From Keflex] codeine Allergy Dyspnea Verified 12/07/22 12:15 tramadol Allergy Dyspnea Verified 12/07/22 12:15 Review of Systems ROS Statement: Those systems with pertinent positive or pertinent negative responses have been documented in the HPI. ROS Other: All systems not noted in ROS Statement are negative. Past Medical History Past Medical History: Asthma, GERD/Reflux, Hypertension, Musculoskeletal Disorder Additional Past Medical History / Comment(s): Ventral septal defect, overactive bladder, frequent UTI's, & has had kidney infections, sinus issues, injury to right knee History of Any Multi-Drug Resistant Organisms: MRSA Date of last positivie culture/infection: 2012 MDRO Source:: buttocks Past Surgical History: No Surgical Hx Reported Additional Past Surgical History / Comment(s): some sort of surgery to remove wound/sore from buttocks Past Anesthesia/Blood Transfusion Reactions: No Reported Reaction Past Psychological History: Depression Smoking Status: Never smoker, Second hand smoke exposure Past Alcohol Use History: None Reported Past Drug Use History: None Reported - Past Family History Mother Family Medical History: GERD/Reflux General Exam - General Exam Comments Initial Comments: This is a well-developed well-nourished awake alert oriented 4 female Limitations: no limitations General appearance: alert, anxious Head exam: Present: atraumatic, normocephalic, normal inspection Eye exam: Present: normal appearance, PERRL, EOMI. Absent: scleral icterus, conjunctival injection, periorbital swelling ENT exam: Present: normal exam, mucous membranes moist Neck exam: Present: normal inspection, full ROM, other. Absent: tenderness, meningismus, lymphadenopathy Respiratory exam: Present: wheezes (Calyx for wheezing), decreased breath sounds (No stridor JVD or bruits). Absent: respiratory distress, rales, rhonchi, stridor Cardiovascular Exam: Present: regular rate, normal rhythm, normal heart sounds. Absent: systolic murmur, diastolic murmur, rubs, gallop, clicks GI/Abdominal exam: Present: soft, normal bowel sounds. Absent: distended, tenderness, guarding, rebound, rigid Extremities exam: Present: normal inspection, full ROM, normal capillary refill. Absent: tenderness, pedal edema, joint swelling, calf tenderness Back exam: Present: normal inspection Neurological exam: Present: alert, oriented X3, CN II-XII intact Psychiatric exam: Present: normal affect, normal mood Skin exam: Present: warm, dry, intact, normal color. Absent: rash Course Vital Signs 12/07/22 12/07/22 12/07/22 12:12 13:49 13:58 Temperature 97.8 F Pulse Rate 96 78 80 Respiratory 22 18 Rate Blood Pressure 163/95 O2 Sat by Pulse 98 Oximetry Medical Decision Making - Medical Decision Making I did discuss the findings with the patient she did get some improvement after updrafts treatment. Patient does have evidence of asthmatic bronchitis refractory to initial treatment patient be sent home on a different antibiotic also oral prednisone and new inhaler.Was pt. sent in by a medical professional or institution (BRITTANY Hyde, GLOBAL PROGRAM MANAGER, urgent care, hospital, or [facility]...) When possible be specific @ -No Did you speak to anyone other than the patient for history (EMS, parent, family, police, friend...)? What history was obtained from this source @ -No Did you review nursing and triage notes (agree or disagree)? Why? @ -I reviewed and agree with nursing and triage notes Were old charts reviewed (outside hosp., previous admission, EMS record, old EKG, old radiological studies, urgent care reports/EKG's, [facility] records)? Report findings @ -No old charts were reviewed Differential Diagnosis (chest pain, altered mental status, abdominal pain women, abdominal pain men, vaginal bleeding, weakness, fever, dyspnea, syncope, headache, dizziness, GI bleed, back pain, seizure, CVA, palpatations, mental health, musculoskeletal)? @ -Asthma, bronchitis, pneumonia EKG interpreted by me (3pts min.). @ -Not done X-rays interpreted by me (1pt min.). @ -As above CT interpreted by me (1pt min.). @ -None done U/S interpreted by me (1pt. min.). @ -None done What testing was considered but not performed or refused? (CT, X-rays, U/S, labs)? Why? @ -None What meds were considered but not given or refused? Why? @ -None Did you discuss the management of the patient with other professionals (professionals i.e. , PA, GLOBAL PROGRAM MANAGER, lab, RT, psych nurse, social media intern, associate dean of women, teacher, licensed loan officer assistant, case loader operator)? Give summary @ -No Was smoking cessation discussed for >3mins.? @ -No Was critical care preformed (if so, how long)? @ -No Were there social determinants of health that impacted care today? How? (Homelessness, low income, unemployed, alcoholism, drug addiction, transportation, low edu. Level, literacy, decrease access to med. care, senior care, rehab)? @ -No Was there de-escalation of care discussed even if they declined (Discuss DNR or withdrawal of care, Hospice)? DNR status @ -No What co-morbidities impacted this encounter? (DM, HTN, Smoking, COPD, CAD, Cancer, CVA, ARF, Chemo, Hep., AIDS, mental health diagnosis, sleep apnea, morbid obesity)? @ -Asthma Was patient admitted / discharged? Hospital course, mention meds given and route, prescriptions, significant lab abnormalities, going to OR and other pertinent info. @ -hospital course the patient was discharged home with a prescription for prednisone, Levaquin, Combivent. She is to follow-up with her doctor as needed patient had a negative Coban and influenza test. Chest x-ray was negative for acute processes. Patient was instructed to stop the current medication she is on. Undiagnosed new problem with uncertain prognosis? @ -No Drug Therapy requiring intensive monitoring for toxicity (Heparin, Nitro, Insulin, Cardizem)? @ -No Were any procedures done? @ -No Diagnosis/symptom? @ -Asthmatic bronchitis Acute, or Chronic, or Acute on Chronic? @ -Acute Uncomplicated (without systemic symptoms) or Complicated (systemic symptoms)? @ -default Side effects of treatment? @ -No Exacerbation, Progression, or Severe Exacerbation? @ -Progression Poses a threat to life or bodily function? How? (Chest pain, [place], NH, pneumonia, PE, COPD, DKA, ARF, appy, cholecystitis, CVA, Diverticulitis, Homicidal, Suicidal, threat to staff... and all critical care pts) @ -No - Lab Data Lab Results 12/07/22 Range/Units 12:58 Influenza Type A (PCR) Not Detected (Not Detectd) Influenza Type B (PCR) Not Detected (Not Detectd) RSV (PCR) Not Detected (Not Detectd) SARS-CoV-2 (PCR) Not Detected (Not Detectd) - Radiology Data Interpreted by me: Imaging interpreted by me no evidence of acute processes seen no evidence of infiltrates no pneumothorax Disposition Clinical Impression: Asthmatic bronchitis Disposition: HOME SELF-CARE Condition: Good Instructions (If sedation given, give patient instructions): Bronchospasm (ED), Asthma (ED), Acute Bronchitis (ED) Prescriptions: Ipratropium/Albuter 20-100Mcg [Combivent Respimat 20-100Mcg Inhaler] 1 puff INHALATION QID #4 gm predniSONE [Deltasone] 20 mg PO BID #10 tab Levofloxacin [Levaquin] 500 mg PO DAILY 1 Days #10 tab Is patient prescribed a controlled substance at d/c from ED?: No Referrals: Sherri Santana MD [Primary Care Provider] - 1-2 days Decision Date: 12/07/22 Decision Time: 14:30
--- NOTE | 2022-12-07 12:53 | XR ---
EXAMINATION TYPE: XR chest 2V DATE OF EXAM: 12/07/2022 12:50 PM COMPARISON: Chest radiographs from 07/03/2022 TECHNIQUE: XR chest 2V Frontal and lateral views of the chest. CLINICAL INDICATION:Female, 47 years old with history of Shortness of breath and cough; FINDINGS: Lungs/Pleura: There is no evidence of pleural effusion, focal consolidation, or pneumothorax. Pulmonary vascularity: Unremarkable. Heart/mediastinum: Cardiomediastinal silhouette is unremarkable. Musculoskeletal: No acute osseous pathology. IMPRESSION: No acute cardiopulmonary disease/process.
[2022-12-07] MEDS ORDERED: predniSONE 50 MG TAB PO STA (14:20)
[2022-12-07] MEDS ORDERED: LEVOFLOXACIN 500 MG TAB PO STA (14:20)
[2022-12-07 14:40] VITALS: BP 132/66; PULSE 89; RESP 20; TEMP 99
== END 2022-12-07 14:40 | disposition home or self-care (01) ==
LOC: EC 12:03
DX: J45.909 Unspecified asthma, uncomplicated (principal); I10 Essential (primary) hypertension; Z77.22 Contact with and (suspected) exposure to environmental tobacco smoke (acute) (chronic); Z88.5 Allergy status to narcotic agent; Z91.048 Other nonmedicinal substance allergy status; Z88.1 Allergy status to other antibiotic agents; Z88.8 Allergy status to other drugs, medicaments and biological substances; Z79.899 Other long term (current) drug therapy; Z20.822 Contact with and (suspected) exposure to COVID-19
CPT/HCPCS: 94640; 87636; 71046; 99283; J7512

== ENCOUNTER → 2023-02-23 | Outpatient (CLI) | payer MEDICARE, OTHER ==
[2023-02-23 17:22] LABS: Basophils # (A) 0.03 X 10*3/uL (0.00-0.10); Basophils % (A) 0.5 %; Eosinophils # (A) 0.11 X 10*3/uL (0.04-0.35); Eosinophils % (A) 1.9 %; HGB 12.5 d/dL (12.0-15.0); Lymphocytes # (A) 1.84 X 10*3/uL (0.90-5.00); Lymphocytes % (A) 31.3 %; MCH 30.8 pg (27.0-32.0); MCHC 32.1 d/dL (32.0-37.0); MCV 96.1 FL (80.0-97.0); Mean Platelet Volume 9.5 FL (9.5-12.2); Monocytes # (A) 0.49 X 10*3/uL (0.20-1.00); Monocytes % (A) 8.3 %; NRBC Per 100 WBC 0 X 10*3/uL (0.00-0.01); Neutrophils # (A) 3.38 X 10*3/uL (1.80-7.70); Neutrophils % (A) 57.5 %; Platelet Count 325 X 10*3/uL (140-440); RBC 4.06 X 10*6/uL (4.10-5.20); RBC Morphology Normal (Normal); RDW 12.6 % (11.5-14.5); WBC 5.88 X 10*3/uL (4.50-10.00)
[2023-02-24 00:57] LABS: Alternaria alternata IgE <0.10 kU/L; Aspergillus fumagatus IgE <0.10 kU/L; Birch IgE <0.10 kU/L; Cat Epith & Dander IgE <0.10 kU/L; Cladosporian herbarum IgE <0.10 kU/L; Dermato. farinae IgE <0.10 kU/L; Dog Dander IgE <0.10 kU/L; Elm IgE <0.10 kU/L; Oak IgE <0.10 kU/L; Ragweed,Common IgE <0.10 kU/L
[2023-02-24 14:37] LABS: Pecan IgE <0.10 kU/L (<0.10); Pecan IgE Class CLASS 0
[2023-02-24 14:38] LABS: Bermuda Grass IgE <0.10 kU/L (<0.10); Meadow Fescue IgE <0.10 kU/L (<0.10); Meadow Fescue IgE Class CLASS 0; Meadow Grs (KY blue) IgE <0.10 kU/L (<0.10); Meadow Grs (KY blue) IgE Class CLASS 0; Penicillium notatum IgE Class CLASS 0; Sycamore(Mpl.Lf) IgE <0.10 kU/L (<0.10); Sycamore(Mpl.Lf) IgE Class CLASS 0; Timothy Grass IgE <0.10 kU/L (<0.10); Timothy Grass IgE Class CLASS 0
[2023-02-24 14:39] LABS: Beech IgE <0.10 kU/L (<0.10); Beech IgE Class CLASS 0; Cottonwood IgE <0.10 kU/L (<0.10); Goldenrod IgE <0.10 kU/L (<0.10); Goldenrod IgE Class CLASS 0; Lamb's Quarter IgE <0.10 kU/L (<0.10); Lamb's Quarter IgE Class CLASS 0; Ragweed, Giant IgE <0.10 kU/L (<0.10); Ragweed, Giant IgE Class CLASS 0; Willow Tree IgE <0.10 kU/L (<0.10); Willow Tree IgE Class CLASS 0
[2023-02-24 14:40] LABS: English Plantain IgE Class CLASS 0; Sheep Sorrel IgE <0.10 kU/L (<0.10); Sheep Sorrel IgE Class CLASS 0
== END | disposition home or self-care (01) ==
LOC: LABPAT 12:22
PROVIDERS: ATTEND Surgery
DX: Z01.812 Encounter for preprocedural laboratory examination (principal); K42.9 Umbilical hernia without obstruction or gangrene; J31.0 Chronic rhinitis
CPT/HCPCS: 82785; 85025; 86003

== ENCOUNTER 2023-03-01 08:32 | Day surgery (SDC) | payer MEDICARE, OTHER ==
[2023-02-27 15:56] VITALS: BMI 48.0
[~2023-03-01 08:32] MED LIST changes: +ACETAMINOPHEN TAB 500 MG TAB PO PRN; +HEPARIN SODIUM,PORCINE/PF 5,000 UNIT/0.5 ML SYRINGE SQ PRN; -Pre Op ABX Message 1 EACH MISC MISCELLANE ONE; +ceFAZolin 3 GM in SODIUM CHLORIDE 0.9% 100 ML IVPB PRN
[2023-03-01] MEDS ORDERED: SCOPOLAMINE 1 MG/72 HR PATCH TRANSDERM ONE (10:19)
[2023-03-01] MEDS ORDERED: HYDROmorphone (PF) 1 MG/ML ONE (11:40)
[2023-03-01] MEDS ORDERED: MIDAZOLAM 2 MG/2 ML VIAL ONE (11:40)
[2023-03-01] MEDS ORDERED: GLYCOPYRROLATE 0.2 MG/ML 2 ML VIAL ONE (11:40)
[2023-03-01] MEDS ORDERED: NEOSTIGMINE 1 MG/ML 10 ML VIAL ONE (11:40)
[2023-03-01] MEDS ORDERED: PROPOFOL 10 MG/ML 20 ML VIAL IV ONE (11:40)
[2023-03-01] MEDS ORDERED: fentaNYL (PF) 50 MCG/ML 2 ML AMP ONE (11:40)
[2023-03-01] MEDS ORDERED: KETOROLAC 15 MG/ML 1 ML VIAL ONE (11:40)
[2023-03-01] MEDS ORDERED: SUCCINYLCHOLINE CHLORIDE 200 MG/10 ML VIAL IV ONE (11:40)
[2023-03-01] MEDS ORDERED: ROCURONIUM 10 MG/ML (5 ML VIAL) IV ONE (11:40)
[2023-03-01] MEDS ORDERED: LIDOCAINE 2% INJ 20 MG/ML (2 ML VIAL) ONE (11:40)
[2023-03-01] MEDS ORDERED: CLINDAMYCIN 900 MG in DEXTROSE 5% IN WATER 50 ML IVPB STA ×2 (12:02)
[2023-03-01] MEDS ORDERED: BUPIVACAINE (PF) 0.25% 30 ML VIAL SQ ONE (12:21)
[2023-03-01] MEDS ORDERED: LACTATED RINGERS 1,000 ML IV ONE (12:46)
--- NOTE | 2023-03-01 12:53 | P.OP ---
Date of Procedure: 03/01/23 Preoperative Diagnosis: Incarcerated umbilical hernia Postoperative Diagnosis: Incarcerated umbilical hernia Procedure(s) Performed: Laparoscopic robotic system repair of incarcerated umbilical hernia Partial omentectomy Transversus abdominis plane block Anesthesia: NESS Surgeon: Williams Deutsch Estimated Blood Loss (ml): 5 Pathology: other (Incarcerated omentum) Condition: stable Disposition: PACU Description of Procedure: The patient was placed on the operating table in the supine position. He received general anesthesia. His abdomen was prepped and draped usual fashion. Using a 5 mm optical trocar under direct visualization the peritoneal cavity was entered in the left upper quadrant. The abdomen was then insufflated. The laparoscope was placed back into the peritoneal cavity. Next a 8 mm robotic trocar was placed in the left lower quadrant and a 12 mm robotic trocar was placed in the left lateral position. The original 5 mm trocar was exchanged for a 8 mm robotic trocar. A four-quadrant transverse of those plane block was performed using 1% local Xylocaine. The patient's placed in the left side up position. And the patient was docked the robot. The umbilical hernia was visualized. Using hook cautery the peritoneum over the umbilical hernia was excised. The fascial opening was repaired using 0V LOC suture. Next a piece of 11 cm round ventral light ST mesh was placed into the. Cavity and secured with 2 OV lock suture. The patient was undocked the robot. The needles were retrieved. The fascia of the 12 mm trocar site was closed with 0 Ethibond suture. Skin was closed interrupted 3-0 Monocryl suture. Dermabond dressings was applied. Patient top procedure well and was sent to recovery room stable condition.
[2023-03-01 13:05] VITALS: TEMP 97
[2023-03-01] MEDS: HYDROmorphone 0.5 MG/0.5 ML SYRINGE IVP PRN ×3 (13:16→13:58)
[2023-03-01 14:32] VITALS: RESP 18
[2023-03-01] MEDS ORDERED: ONDANSETRON 4 MG/2 ML VIAL ONE (14:53)
[2023-03-01 14:58] VITALS: BP 125/74; PULSE 69
== END 2023-03-01 15:52 | disposition home or self-care (01) ==
LOC: OR 08:32
PROVIDERS: ATTEND Surgery
DX: K42.0 Umbilical hernia with obstruction, without gangrene (principal); I25.2 Old myocardial infarction; Z79.899 Other long term (current) drug therapy; Z98.890 Other specified postprocedural states; Z88.5 Allergy status to narcotic agent
CPT/HCPCS: 86900; 86901; 86902; 84132; 86850; 86870; 86880; 88302; 49594; C1781; J2250; J0330; J1100; J2710; J2405; J3010; J1170 ×2; J1885; J2704; J1644; J2001

== ENCOUNTER → 2023-06-21 | Outpatient (CLI) | payer MEDICARE, OTHER ==
--- NOTE | 2023-06-24 05:57 | MR ---
EXAMINATION TYPE: MR pituitary wo/w con DATE OF EXAM: 06/21/2023 COMPARISON: MRI brain May 18, 2023 HISTORY: Evaluate pituitary gland TECHNIQUE: Multiplanar, multisequence images of the brain and brainstem is performed without and with IV contras t, utilizing 13 mL intravenous Gadavist . Pituitary gland protocol FINDINGS: Pituitary stalk shows persistent slight right and posterior position or displacement on pos tcontrast image 10 and sagittal image 8 correlating with axial images 4 through 6 raising concern for small suprasellar arachnoid cyst with local mass effect measuring near 6 to 7 mm. There is concave s uperior margin to the pituitary gland which is normal in size. No macroadenoma is present. Optic kong sm is not effaced. Postcontrast images show fairly homogeneous enhancement of the pituitary gland. No MRI evidence for microadenoma. No gross hydrocephalus. Midline structures are preserved. IMPRESSION: Continued right and posterior displacement of the pituitary stalk raising concern for pos sible 6 to 7 mm suprasellar arachnoid cyst with local mass effect.
== END | disposition home or self-care (01) ==
LOC: RADMRIMAIN 06-16 16:55
PROVIDERS: ATTEND Ophthalmology
DX: E23.6 Other disorders of pituitary gland (principal)
CPT/HCPCS: 70553; A9585

== ENCOUNTER → 2023-07-10 | Outpatient (CLI) | payer MEDICARE, OTHER ==
--- NOTE | 2023-07-10 08:52 | US ---
EXAMINATION TYPE: US abdomen complete DATE OF EXAM: 07/10/2023 COMPARISON: CT 2021 CLINICAL INDICATION: Female, 47 years old with history of R10.10 UPPER ABDOMINAL PAIN, UNSPECIFIED; A bdomen pain and nausea x 1 week TECHNIQUE: Multiple sonographic images of the abdomen are obtained. FINDINGS: EXAM MEASUREMENTS: Liver Length: 15.5 cm Gallbladder Wall: 0.3 cm CBD: 0.4 cm Spleen: 10.4 cm Right Kidney: 11.7 x 6.1 x 6.3 cm Left Kidney: 11.0 x 5.6 x 5.4 cm Difficult and limited study due to patient body habitus Pancreas: visualized portions wnl, limited by overlying midline bowel gas Liver: wnl Gallbladder: cholelithiasis Evidence for sonographic Hoyt's sign: no CBD: visualized portions wnl, limited by overlying bowel gas Spleen: wnl Right Kidney: visualized portions wnl, limited by overlying bowel gas Left Kidney: visualized portions wnl, limited by overlying bowel gas Upper IVC: wnl Abd Aorta: visualized portions appear wnl, limited by overlying midline bowel gas The liver is homogenous. The intrahepatic portion of the IVC and proximal abdominal aorta are within normal limits. Common bile duct is unremarkable. The visualized portions of the pancreas are homog enous. The spleen is unremarkable. Kidneys are symmetric and free of hydronephrosis. No renal lesi ons are seen. IMPRESSION: 1. Uncomplicated cholelithiasis.
== END | disposition home or self-care (01) ==
LOC: RADUSWWP 07:37
PROVIDERS: ATTEND Internal Medicine
DX: K80.20 Calculus of gallbladder without cholecystitis without obstruction (principal)
CPT/HCPCS: 76700

== ENCOUNTER 2023-07-22 17:14 | Emergency (ER) | payer MEDICARE, OTHER ==
--- NOTE | 2023-07-22 17:22 | ED ---
General Adult HPI - General Stated complaint: Cough Time Seen by Provider: 07/22/23 17:21 Source: patient, RN notes reviewed - History of Present Illness Initial comments: 47-year-old female presents to the emergency department with chief complaint of sore throat, cough, congestion 2 days. She states that she lives in a group home and other people have similar symptoms. She states that she has a productive cough and feels like she has rattling in her chest. She does have a history of asthma and uses albuterol inhaler. Denies fever, chills. - Related Data Home Medications Medication Instructions Recorded Confirmed HYDROcodone/APAP 7.5-325MG [[place] 1 tab PO BID PRN 02/28/20 05/16/23 7.5-325] Albuterol Inhaler [Ventolin Hfa 2 puff INHALATION RT-QID PRN 10/01/20 05/16/23 Inhaler] Fluticasone Nasal [place] [Flonase 2 spray EA NOSTRIL BID PRN 10/26/21 05/16/23 Nasal [place]] Levocetirizine Dihydrochloride 5 mg PO DAILY 10/26/21 05/16/23 [Xyzal] Sertraline [Zoloft] 50 mg PO DAILY 07/03/22 05/16/23 Solifenacin Succinate [Vesicare] 10 mg PO DAILY 07/03/22 05/16/23 Cholecalciferol [Vitamin D3 (25 25 mcg PO DAILY 02/27/23 05/16/23 Mcg = 1000 Iu)] Famotidine [Pepcid] 20 mg PO HS PRN 02/27/23 05/16/23 Fluticasone Propion/Salmeterol 1 inhalation PO BID 02/27/23 05/16/23 [Advair 250-50 Diskus] Losartan/Hydrochlorothiazide 1 tab PO DAILY 02/27/23 05/16/23 [Losartan-Hctz 100-25 mg Tab] Multivitamins, Thera [Multivitamin 1 tab PO DAILY 02/27/23 05/16/23 (formulary)] Ondansetron [Zofran] 4 mg PO DAILY PRN 02/27/23 05/16/23 Topiramate 25 mg PO BID 02/27/23 05/16/23 Acetaminophen Tab [Tylenol] 650 mg PO Q6H PRN 05/15/23 05/16/23 Previous Rx's Medication Instructions Recorded Nitroglycerin Sl Tabs [Nitrostat] 0.4 mg SUBLINGUAL Q5M PRN #10 tab 05/21/20 Omeprazole [PriLOSEC] 40 mg PO DAILY #14 cap 07/03/22 predniSONE 50 mg PO DAILY #5 tab 07/22/23 Allergies Allergy/AdvReac Type Severity Reaction Status Date / Time cinnamon Allergy Unknown Nausea & Verified 05/16/23 13:28 Vomiting, abd pain peanut Allergy Unknown Nausea & Verified 05/16/23 13:28 Vomiting, abd pain adhesive Allergy Rash/Hives Verified 05/16/23 13:28 cephalexin monohydrate Allergy Dyspnea Verified 05/16/23 13:28 [From Keflex] codeine Allergy Dyspnea Verified 05/16/23 13:28 tramadol Allergy Dyspnea Verified 05/16/23 13:28 Review of Systems ROS Statement: Those systems with pertinent positive or pertinent negative responses have been documented in the HPI. ROS Other: All systems not noted in ROS Statement are negative. Past Medical History Past Medical History: Asthma, GERD/Reflux, Hypertension Additional Past Medical History / Comment(s): Migraines and eye bulging, ventral septal defect, overactive bladder, frequent UTI's, & has had kidney infections, sinus issues History of Any Multi-Drug Resistant Organisms: MRSA Date of last positivie culture/infection: 2012 MDRO Source:: buttocks Past Surgical History: No Surgical Hx Reported Additional Past Surgical History / Comment(s): some sort of surgery to remove wound/sore from buttocks, R knee surgery d/t tears. Past Anesthesia/Blood Transfusion Reactions: No Reported Reaction Smoking Status: Never smoker - Past Family History Mother Family Medical History: GERD/Reflux General Exam - General Exam Comments Initial Comments: Visual Physical Exam Vital signs reviewed General: Well-appearing, nontoxic, no acute distress. Head: Normocephalic, atraumatic Eyes: PERRLA, EOMI ENT: Airway patent Chest: Nonlabored breathing Skin: No visual rash, normal skin tone Neuro: Alert and oriented 3 Musculoskeletal: No gross abnormalities Limitations: no limitations General appearance: alert, in no apparent distress Head exam: Present: atraumatic, normocephalic, normal inspection Eye exam: Present: normal appearance, PERRL, EOMI. Absent: scleral icterus, conjunctival injection, periorbital swelling ENT exam: Present: normal exam, normal oropharynx, mucous membranes moist Neck exam: Present: normal inspection. Absent: tenderness, meningismus, lymphadenopathy Respiratory exam: Present: wheezes. Absent: respiratory distress, rhonchi Cardiovascular Exam: Present: regular rate, normal rhythm, normal heart sounds. Absent: systolic murmur, diastolic murmur, rubs, gallop, clicks Back exam: Present: normal inspection Neurological exam: Present: alert, oriented X3 Psychiatric exam: Present: normal affect, normal mood Skin exam: Present: warm, dry, intact, normal color. Absent: rash Course Vital Signs 07/22/23 07/22/23 07/22/23 17:22 19:48 19:55 Temperature 98.7 F Pulse Rate 95 95 98 Respiratory 18 Rate Blood Pressure 165/79 O2 Sat by Pulse 94 L Oximetry 07/22/23 20:02 Temperature 98.3 F Pulse Rate 89 Respiratory 20 Rate Blood Pressure 180/68 O2 Sat by Pulse 100 Oximetry Medical Decision Making - Medical Decision Making Quick note preformed by Alejandrina Clinton PA-C Was pt. sent in by a medical professional or institution (BRITTANY Hyde, [employer], urgent care, hospital, or skilled nursing...) When possible be specific @ -No Did you speak to anyone other than the patient for history (EMS, parent, family, police, friend...)? What history was obtained from this source @ -No Did you review nursing and triage notes (agree or disagree)? Why? @ -I reviewed and agree with nursing and triage notes Were old charts reviewed (outside hosp., previous admission, EMS record, old EKG, old radiological studies, urgent care reports/EKG's, skilled nursing records)? Report findings @ -No old charts were reviewed Differential Diagnosis (chest pain, altered mental status, abdominal pain women, abdominal pain men, vaginal bleeding, weakness, fever, dyspnea, syncope, headache, dizziness, GI bleed, back pain, seizure, CVA, palpatations, mental health, musculoskeletal)? @ -Covid, influenza, RSV, viral URI, bronchitis, asthma exacerbation, this list is not all inclusive EKG interpreted by me (3pts min.). @ -none X-rays interpreted by me (1pt min.). @ -Chest x-ray shows no evidence of acute process CT interpreted by me (1pt min.). @ -None done U/S interpreted by me (1pt. min.). @ -None done What testing was considered but not performed or refused? (CT, X-rays, U/S, labs)? Why? @ -None What meds were considered but not given or refused? Why? @ -None Did you discuss the management of the patient with other professionals (professionals i.e. DrAimee, PA, [employer], lab, RT, psych nurse, certified social workers in health care, hyperbaric technician, teacher, commissary officer, machine adjuster leader case trim)? Give summary @ -No Was smoking cessation discussed for >3mins.? @ -No Was critical care preformed (if so, how long)? @ -No Were there social determinants of health that impacted care today? How? (Homelessness, low income, unemployed, alcoholism, drug addiction, transportation, low edu. Level, literacy, decrease access to med. care, [facility], rehab)? @ -No Was there de-escalation of care discussed even if they declined (Discuss DNR or withdrawal of care, Hospice)? DNR status @ -No What co-morbidities impacted this encounter? (DM, HTN, Smoking, COPD, CAD, Cancer, CVA, ARF, Chemo, Hep., AIDS, mental health diagnosis, sleep apnea, morbid obesity)? @ -None Was patient admitted / discharged? Hospital course, mention meds given and route, prescriptions, significant lab abnormalities, going to OR and other pertinent info. @ -Discharged. Patient presented to emergency department with chief complaint of upper respiratory symptoms 2 days. Patient is found to have wheezes throughout lung walters. She does have a history of asthma and uses an albuterol inhaler as needed. Covid, influenza, RSV negative. Chest x-ray shows no evidence of acute process. Patient given dose of Solu-Medrol and DuoNeb treatment which improved her symptoms. Patient was advised to utilize her inhaler. Prescription was sent for prednisone 5 days. Patient is understanding and agreeable with plan. Patient stable at time of discharge. Case discussed with Dr. Oliveira. Undiagnosed new problem with uncertain prognosis? @ -No Drug Therapy requiring intensive monitoring for toxicity (Heparin, Nitro, Insulin, Cardizem)? @ -No Were any procedures done? @ -No Diagnosis/symptom? @ -Bronchitis Acute, or Chronic, or Acute on Chronic? @ -acute Uncomplicated (without systemic symptoms) or Complicated (systemic symptoms)? @ -uncomplicated Side effects of treatment? @ -No Exacerbation, Progression, or Severe Exacerbation? @ -No Poses a threat to life or bodily function? How? (Chest pain, [place], [place], pneumonia, PE, COPD, DKA, ARF, appy, cholecystitis, CVA, Diverticulitis, Homicidal, Suicidal, threat to staff... and all critical care pts) @ -No - Lab Data Lab Results 07/22/23 Range/Units 17:28 Influenza Type A (PCR) Not Detected (Not Detectd) Influenza Type B (PCR) Not Detected (Not Detectd) RSV (PCR) Not Detected (Not Detectd) SARS-CoV-2 (PCR) Not Detected (Not Detectd) Disposition Clinical Impression: Bronchitis Disposition: HOME SELF-CARE Condition: Stable Instructions (If sedation given, give patient instructions): Acute Bronchitis (ED) Additional Instructions: Please follow-up with her primary care provider. Return to the emergency department for new or worsening symptoms. Prescriptions: predniSONE 50 mg PO DAILY #5 tab Is patient prescribed a controlled substance at d/c from ED?: No Referrals: Sherri Santana MD [Primary Care Provider] - 1-2 days
--- NOTE | 2023-07-22 18:00 | XR ---
EXAMINATION TYPE: XR chest 2V DATE OF EXAM: 07/22/2023 5:54 PM CLINICAL INDICATION:Female, 47 years old with history of cough; [facility] COMPARISON: 12/07/2022 TECHNIQUE: XR chest 2V. Frontal PA and lateral views of the chest. FINDINGS: Lines/Tubes: None. Heart/mediastinum: Cardiomediastinal silhouette is stable. Heart size is normal. Mediastinum appear s within normal limits. Pulmonary vascularity: Not increased, Lungs/Pleura: There is no evidence of pleural effusion, focal consolidation, or pneumothorax. Musculoskeletal: No acute osseous abnormality demonstrated in the limits of the exam. Other findings: None. IMPRESSION: No acute cardiopulmonary abnormality.
[2023-07-22] MEDS ORDERED: IPRATROPIUM-ALBUTEROL 3 ML NEB INHALATION STA (18:37)
[2023-07-22] MEDS ORDERED: methylPREDNISolone SOD SUCCI 125 MG/2 ML VIAL IM ONE (18:37)
[2023-07-22 20:09] VITALS: PULSE 89
[2023-07-22 20:10] VITALS: BP 180/68; RESP 20; TEMP 98.3
== END 2023-07-22 20:46 | disposition home or self-care (01) ==
LOC: EC 17:14
DX: J45.909 Unspecified asthma, uncomplicated (principal); I10 Essential (primary) hypertension; K21.9 Gastro-esophageal reflux disease without esophagitis; Z20.822 Contact with and (suspected) exposure to COVID-19; Z79.899 Other long term (current) drug therapy; Z79.51 Long term (current) use of inhaled steroids; Z88.1 Allergy status to other antibiotic agents; Z91.010 Allergy to peanuts; Z91.09 Other allergy status, other than to drugs and biological substances; Z88.8 Allergy status to other drugs, medicaments and biological substances
CPT/HCPCS: 94640; 87636; 71046; 99283; 96372; J2930

== ENCOUNTER 2023-11-26 08:54 | Emergency (ER) | payer MEDICARE, OTHER ==
[2023-11-26] MEDS: HYDROcodone/APAP 10-325MG 1 EACH TAB PO ONE (09:34)
--- NOTE | 2023-11-26 09:34 | ED ---
Back Pain HPI - General Chief Complaint: Back Pain/Injury Stated Complaint: back pain Time Seen by Provider: 11/26/23 09:10 Source: patient, RN notes reviewed Limitations: no limitations - History of Present Illness Initial Comments: 48-year-old female presents emergency department complaint of low back pain. 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 She denies any bowel, bladder incontinence retention no saddle anesthesias. Patient states that she has chronic back issues in which she sees Dr. Guthrie. Patient denies abdominal complaints. Denies any lower extremity paresthesias or weakness. - Related Data Home Medications Medication Instructions Recorded Confirmed HYDROcodone/APAP 7.5-325MG [[place] 1 tab PO BID PRN 02/28/20 05/16/23 7.5-325] Albuterol Inhaler [Ventolin Hfa 2 puff INHALATION RT-QID PRN 10/01/20 05/16/23 Inhaler] Fluticasone Nasal [place] [Flonase 2 spray EA NOSTRIL BID PRN 10/26/21 05/16/23 Nasal [place]] Levocetirizine Dihydrochloride 5 mg PO DAILY 10/26/21 05/16/23 [Xyzal] Sertraline [Zoloft] 50 mg PO DAILY 07/03/22 05/16/23 Solifenacin Succinate [Vesicare] 10 mg PO DAILY 07/03/22 05/16/23 Cholecalciferol [Vitamin D3 (25 25 mcg PO DAILY 02/27/23 05/16/23 Mcg = 1000 Iu)] Famotidine [Pepcid] 20 mg PO HS PRN 02/27/23 05/16/23 Fluticasone Propion/Salmeterol 1 inhalation PO BID 02/27/23 05/16/23 [Advair 250-50 Diskus] Losartan/Hydrochlorothiazide 1 tab PO DAILY 02/27/23 05/16/23 [Losartan-Hctz 100-25 mg Tab] Multivitamins, Thera [Multivitamin 1 tab PO DAILY 02/27/23 05/16/23 (formulary)] Ondansetron [Zofran] 4 mg PO DAILY PRN 07/10/23 09/26/23 Topiramate 25 mg PO BID 02/27/23 05/16/23 Acetaminophen Tab [Tylenol] 650 mg PO Q6H PRN 05/15/23 05/16/23 Previous Rx's Medication Instructions Recorded Nitroglycerin Sl Tabs [Nitrostat] 0.4 mg SUBLINGUAL Q5M PRN #10 tab 05/21/20 Omeprazole [PriLOSEC] 40 mg PO DAILY #14 cap 07/03/22 predniSONE 50 mg PO DAILY #5 tab 07/22/23 Cyclobenzaprine [Flexeril] 10 mg PO TID PRN #15 tab 11/26/23 predniSONE 50 mg PO DAILY #5 tab 11/26/23 Allergies Allergy/AdvReac Type Severity Reaction Status Date / Time cinnamon Allergy Unknown Nausea & Verified 11/26/23 09:11 Vomiting, abd pain peanut Allergy Unknown Nausea & Verified 11/26/23 09:11 Vomiting, abd pain adhesive Allergy Rash/Hives Verified 11/26/23 09:11 cephalexin monohydrate Allergy Dyspnea Verified 11/26/23 09:11 [From Keflex] codeine Allergy Dyspnea Verified 11/26/23 09:11 tramadol Allergy Dyspnea Verified 11/26/23 09:11 Review of Systems ROS Statement: Those systems with pertinent positive or pertinent negative responses have been documented in the HPI. ROS Other: All systems not noted in ROS Statement are negative. Past Medical History Past Medical History: Asthma, GERD/Reflux, Hypertension Additional Past Medical History / Comment(s): Migraines and eye bulging, ventral septal defect, overactive bladder, frequent UTI's, & has had kidney infections, sinus issues History of Any Multi-Drug Resistant Organisms: MRSA Date of last positivie culture/infection: 2012 MDRO Source:: buttocks Past Surgical History: No Surgical Hx Reported Additional Past Surgical History / Comment(s): some sort of surgery to remove wound/sore from buttocks, R knee surgery d/t tears. Past Anesthesia/Blood Transfusion Reactions: No Reported Reaction Past Psychological History: Depression Smoking Status: Never smoker Past Alcohol Use History: None Reported Past Drug Use History: None Reported - Past Family History Mother Family Medical History: GERD/Reflux General Exam Limitations: no limitations General appearance: alert, in no apparent distress Head exam: Present: atraumatic, normocephalic, normal inspection Neck exam: Present: normal inspection, full ROM. Absent: tenderness, meningismus, lymphadenopathy Respiratory exam: Present: normal lung sounds bilaterally. Absent: respiratory distress, wheezes, rales, rhonchi, stridor Cardiovascular Exam: Present: regular rate, normal rhythm, normal heart sounds. Absent: systolic murmur, diastolic murmur, rubs, gallop, clicks GI/Abdominal exam: Present: soft, normal bowel sounds. Absent: distended, tenderness, guarding, rebound, rigid Extremities exam: Present: normal inspection, full ROM, normal capillary refill. Absent: tenderness, pedal edema, joint swelling, calf tenderness Back exam: Present: full ROM (With moderate discomfort), tenderness, muscle spasm, paraspinal tenderness. Absent: vertebral tenderness Neurological exam: Present: reflexes normal. Absent: motor sensory deficit Course Vital Signs 11/26/23 09:05 Temperature 97.4 F L Pulse Rate 79 Respiratory 18 Rate Blood Pressure 139/90 O2 Sat by Pulse 98 Oximetry Medical Decision Making - Medical Decision Making Was pt. sent in by a medical professional or institution (, PA, [employer], urgent care, hospital, or care home...) When possible be specific @ -No Did you speak to anyone other than the patient for history (EMS, parent, family, police, friend...)? What history was obtained from this source @ -No Did you review nursing and triage notes (agree or disagree)? Why? @ -I reviewed and agree with nursing and triage notes Were old charts reviewed (outside hosp., previous admission, EMS record, old EKG, old radiological studies, urgent care reports/EKG's, care home records)? Report findings @ -No old charts were reviewed Differential Diagnosis (chest pain, altered mental status, abdominal pain women, abdominal pain men, vaginal bleeding, weakness, fever, dyspnea, syncope, headache, dizziness, GI bleed, back pain, seizure, CVA, palpatations, mental health, musculoskeletal)? @ -[Differential Back Pain: Strain, zoster, cauda equina syndrome, epidural abscess, vertebral osteomyelitis, discitis, fracture, subluxation, disc herniation, DJD, spinal stenosis, dissection, AAA, pancreatitis, peptic ulcer disease, pyelonephritis, kidney stone, this is not meant to be an all-inclusive list. EKG interpreted by me (3pts min.). @ -None X-rays interpreted by me (1pt min.). @ -None done CT interpreted by me (1pt min.). @ -None done U/S interpreted by me (1pt. min.). @ -None done What testing was considered but not performed or refused? (CT, X-rays, U/S, labs)? Why? @ -Consider CT, x-ray though patient had multiple images in the past with no traumatic falls What meds were considered but not given or refused? Why? @ -None Did you discuss the management of the patient with other professionals (professionals i.e. DrAimee, PA, [employer], lab, RT, psych nurse, social sciences lecturer, terminal operations manager, teacher, commanding officer garage, welfare case worker)? Give summary @ -No Was smoking cessation discussed for >3mins.? @ -No Was critical care preformed (if so, how long)? @ -No Were there social determinants of health that impacted care today? How? (Homelessness, low income, unemployed, alcoholism, drug addiction, transportation, low edu. Level, literacy, decrease access to med. care, [facility], rehab)? @ -No Was there de-escalation of care discussed even if they declined (Discuss DNR or withdrawal of care, Hospice)? DNR status @ -No What co-morbidities impacted this encounter? (DM, HTN, Smoking, COPD, CAD, Cancer, CVA, ARF, Chemo, Hep., AIDS, mental health diagnosis, sleep apnea, morbid obesity)? @ -Chronic pain Was patient admitted / discharged? Hospital course, mention meds given and route, prescriptions, significant lab abnormalities, going to OR and other pertinent info. @ -Discharge patient presented for low back strain patient has no red flag symptoms was given analgesics patient is on a current pain contract will follow- up with her neurologist, pain management Undiagnosed new problem with uncertain prognosis? @ -No Drug Therapy requiring intensive monitoring for toxicity (Heparin, Nitro, Insulin, Cardizem)? @ -No Were any procedures done? @ -No Diagnosis/symptom? @ -Lumbar strain Acute, or Chronic, or Acute on Chronic? @ -Acute Uncomplicated (without systemic symptoms) or Complicated (systemic symptoms)? @ -Uncomplicated Side effects of treatment? @ -No Exacerbation, Progression, or Severe Exacerbation? @ -No Poses a threat to life or bodily function? How? (Chest pain, [place], [place], pneumonia, PE, COPD, DKA, ARF, appy, cholecystitis, CVA, Diverticulitis, Homicidal, Suicidal, threat to staff... and all critical care pts) @ -No Disposition Clinical Impression: Strain of lumbar region Disposition: HOME SELF-CARE Condition: Stable Instructions (If sedation given, give patient instructions): Acute Low Back Pain (ED) Additional Instructions: Please return to the Emergency Department if symptoms worsen or any other c oncerns. Prescriptions: Cyclobenzaprine [Flexeril] 10 mg PO TID PRN #15 tab PRN Reason: Muscle Spasm predniSONE 50 mg PO DAILY #5 tab Is patient prescribed a controlled substance at d/c from ED?: No Referrals: Sherri Santana MD [Primary Care Provider] - 1-2 days Time of Disposition: 09:34
[2023-11-26] MEDS: ORPHENADRINE 30 MG/ML 2 ML VIAL IM STA (09:35)
[2023-11-26] MEDS: KETOROLAC 15 MG/ML 1 ML VIAL IM STA (09:35)
[2023-11-26 09:47] VITALS: BP 139/90; PULSE 79; RESP 18; TEMP 97.4
== END 2023-11-26 09:43 | disposition home or self-care (01) ==
LOC: EC 08:54
DX: S39.012A Strain of muscle, fascia and tendon of lower back, initial encounter (principal); G89.29 Other chronic pain; Z91.010 Allergy to peanuts; Z88.5 Allergy status to narcotic agent; Z88.1 Allergy status to other antibiotic agents; Z91.09 Other allergy status, other than to drugs and biological substances; Z91.048 Other nonmedicinal substance allergy status; X50.9XXA Other and unspecified overexertion or strenuous movements or postures, initial encounter
CPT/HCPCS: 99283; 96372 ×2; J2360; J1885

== ENCOUNTER 2023-12-17 04:43 | Emergency (ER) | payer MEDICARE, OTHER ==
[2023-12-17] MEDS: SODIUM CHLORIDE 0.9% 1,000 ML IV STA (06:03)
[2023-12-17] MEDS: ONDANSETRON 4 MG/2 ML VIAL IVP STA (06:06)
[2023-12-17 06:39] LABS: ALT 19 U/L (4-34); AST 23 U/L (14-36); African American GFR (CKD) >90 (>60 ml/min/1.73 sqM); Alkaline Phosphatase 65 U/L (38-126); Amylase 47 U/L (30-110); Anion Gap 8 mmol/L; Blood Urea Nitrogen 22 mg/dL (7-17); Calcium 8.7 mg/dL (8.4-10.2); Carbon Dioxide 24 mmol/L (22-30); Chloride 107 mmol/L (98-107); Glucose 141 mg/dL (74-99); Lipase 54 U/L (23-300); Non-African American GFR(CKD) >90 (>60 ml/min/1.73 sqM); Potassium 4.4 mmol/L (3.5-5.1); Sodium 139 mmol/L (137-145); Total Bilirubin 0.9 mg/dL (0.2-1.3); Total Protein 6.9 g/dL (6.3-8.2)
[2023-12-17 06:47] LABS: Basophils % (A) 0 %; Eosinophils % (A) 0 %; HCT 44.6 % (34.0-46.0); HGB 14.7 gm/dL (11.4-16.0); Lymphocytes # (A) 0.4 k/uL (1.0-4.8); Lymphocytes % (A) 5 %; MCH 29.8 pg (25.0-35.0); MCV 90.3 fL (80.0-100.0); Mean Platelet Volume 7.8; Monocytes # (A) 0.4 k/uL (0-1.0); Monocytes % (A) 4 %; Neutrophils % (A) 90 %; Platelet Count 306 k/uL (150-450); RBC 4.94 m/uL (3.80-5.40); RDW 12.7 % (11.5-15.5); WBC 8.9 k/uL (3.8-10.6)
[2023-12-17 07:17] LABS: Appearance,Urine Clear (Clear); Bilirubin,Urine Negative (Negative); Blood,Urine Negative (Negative); Color,Urine Light Yellow; Glucose,Urine (UA) Negative (Negative); Ketones,Urine Negative (Negative); Leukocyte Esterase,Urine Negative (Negative); Nitrite,Urine Negative (Negative); PH, Urine 6.5 (5.0-8.0); Protein,Urine Trace (Negative); Urobilinogen,Urine <2.0 mg/dL (<2.0)
--- NOTE | 2023-12-17 08:05 | ED ---
Nausea/Vomiting/Diarrhea HPI - General Source: patient Mode of arrival: wheelchair Limitations: no limitations - History of Present Illness MD complaint: nausea, vomiting, diarrhea -: hour(s) Description of Vomiting: food contents Description of Diarrhea: water Location: diffuse Severity: moderate Quality: cramping Consistency: intermittent, now resolved Improves with: none Worsens with: none Associated Symptoms: diaphoresis <Jose Roberto Olvera - Last Filed: 12/17/23 08:03> <Jun Oliveira - Last Filed: 12/17/23 11:45> - General Chief complaint: Nausea/Vomiting/Diarrhea Stated complaint: NVD Time Seen by Provider: 12/17/23 05:07 - Related Data Home Medications Medication Instructions Recorded Confirmed HYDROcodone/APAP 7.5-325MG [[place] 1 tab PO BID PRN 02/28/20 05/16/23 7.5-325] Albuterol Inhaler [Ventolin Hfa 2 puff INHALATION RT-QID PRN 10/01/20 05/16/23 Inhaler] Fluticasone Nasal [place] [Flonase 2 spray EA NOSTRIL BID PRN 10/26/21 05/16/23 Nasal [place]] Levocetirizine Dihydrochloride 5 mg PO DAILY 10/26/21 05/16/23 [Xyzal] Sertraline [Zoloft] 50 mg PO DAILY 07/03/22 05/16/23 Solifenacin Succinate [Vesicare] 10 mg PO DAILY 07/03/22 05/16/23 Cholecalciferol [Vitamin D3 (25 25 mcg PO DAILY 02/27/23 05/16/23 Mcg = 1000 Iu)] Famotidine [Pepcid] 20 mg PO HS PRN 02/27/23 05/16/23 Fluticasone Propion/Salmeterol 1 inhalation PO BID 02/27/23 05/16/23 [Advair 250-50 Diskus] Losartan/Hydrochlorothiazide 1 tab PO DAILY 02/27/23 05/16/23 [Losartan-Hctz 100-25 mg Tab] Multivitamins, Thera [Multivitamin 1 tab PO DAILY 02/27/23 05/16/23 (formulary)] Ondansetron [Zofran] 4 mg PO DAILY PRN 02/27/23 05/16/23 Topiramate 25 mg PO BID 02/27/23 05/16/23 Acetaminophen Tab [Tylenol] 650 mg PO Q6H PRN 05/15/23 05/16/23 Previous Rx's Medication Instructions Recorded Nitroglycerin Sl Tabs [Nitrostat] 0.4 mg SUBLINGUAL Q5M PRN #10 tab 05/21/20 Omeprazole [PriLOSEC] 40 mg PO DAILY #14 cap 07/03/22 predniSONE 50 mg PO DAILY #5 tab 07/22/23 Cyclobenzaprine [Flexeril] 10 mg PO TID PRN #15 tab 11/26/23 predniSONE 50 mg PO DAILY #5 tab 11/26/23 Dicyclomine [Bentyl] 20 mg PO QID PRN #15 tablet 12/17/23 Ondansetron Odt [Zofran Odt] 4 mg PO Q8HR PRN #10 tab 12/17/23 Allergies Allergy/AdvReac Type Severity Reaction Status Date / Time cinnamon Allergy Unknown Nausea & Verified 12/17/23 04:54 Vomiting, abd pain peanut Allergy Unknown Nausea & Verified 12/17/23 04:54 Vomiting, abd pain adhesive Allergy Rash/Hives Verified 12/17/23 04:54 cephalexin monohydrate Allergy Dyspnea Verified 12/17/23 04:54 [From Keflex] codeine Allergy Dyspnea Verified 12/17/23 04:54 tramadol Allergy Dyspnea Verified 12/17/23 04:54 Review of Systems ROS Other: All systems not noted in ROS Statement are negative. Constitutional: Denies: fever, chills, weakness Respiratory: Denies: cough, dyspnea Cardiovascular: Denies: chest pain, palpitations, edema Gastrointestinal: Reports: as per HPI, nausea, vomiting, diarrhea. Denies: h ematemesis, melena, hematochezia Genitourinary: Denies: dysuria, hematuria Musculoskeletal: Denies: back pain Skin: Denies: rash Neurological: Denies: headache, weakness, numbness <Jose Roberto Olvera - Last Filed: 12/17/23 08:03> ROS Other: All systems not noted in ROS Statement are negative. <Jun Oliveira - Last Filed: 12/17/23 11:45> ROS Statement: Those systems with pertinent positive or pertinent negative responses have been documented in the HPI. Past Medical History Past Medical History: Asthma, GERD/Reflux, Hypertension Additional Past Medical History / Comment(s): Migraines and eye bulging, ventral septal defect, overactive bladder, frequent UTI's, & has had kidney infections, sinus issues History of Any Multi-Drug Resistant Organisms: MRSA Date of last positivie culture/infection: 2012 MDRO Source:: buttocks Past Surgical History: No Surgical Hx Reported Additional Past Surgical History / Comment(s): some sort of surgery to remove wound/sore from buttocks, R knee surgery d/t tears. Past Anesthesia/Blood Transfusion Reactions: No Reported Reaction Past Psychological History: Depression Smoking Status: Never smoker Past Alcohol Use History: None Reported Past Drug Use History: None Reported - Past Family History Mother Family Medical History: GERD/Reflux <Jose Roberto Olvera - Last Filed: 12/17/23 08:03> General Exam Limitations: no limitations General appearance: alert, in no apparent distress Head exam: Present: atraumatic, normocephalic Eye exam: Present: normal appearance. Absent: scleral icterus, conjunctival injection Neck exam: Present: normal inspection Respiratory exam: Present: normal lung sounds bilaterally. Absent: respiratory distress, wheezes, rales, rhonchi, stridor Cardiovascular Exam: Present: regular rate, normal rhythm, normal heart sounds. Absent: systolic murmur, diastolic murmur, rubs, gallop GI/Abdominal exam: Present: soft. Absent: distended, tenderness, guarding, rebound, rigid, mass Extremities exam: Present: normal inspection, normal capillary refill. Absent: pedal edema, calf tenderness Back exam: Present: normal inspection. Absent: CVA tenderness (R), CVA tenderness (L) Neurological exam: Present: alert Skin exam: Present: warm, dry, intact, normal color. Absent: rash <Jose Roberto Olvera - Last Filed: 12/17/23 08:03> Course Vital Signs 12/17/23 12/17/23 12/17/23 04:52 06:36 09:56 Temperature 99.4 F 98.6 F Pulse Rate 110 H 96 88 Respiratory 16 18 16 Rate Blood Pressure 174/98 130/88 O2 Sat by Pulse 98 97 100 Oximetry 12/17/23 11:11 Temperature Pulse Rate 89 Respiratory 16 Rate Blood Pressure 147/77 O2 Sat by Pulse 99 Oximetry Medical Decision Making - Lab Data Result diagrams: 12/17/23 06:06 12/17/23 06:06 <MayJose Roberto - Last Filed: 12/17/23 08:03> - Lab Data Result diagrams: 12/17/23 06:06 12/17/23 06:06 <Jun Oliveira - Last Filed: 12/17/23 11:45> - Medical Decision Making Was pt. sent in by a medical professional or institution (, PA, SAMPLE SEWER, urgent care, hospital, or assisted...) When possible be specific @ -No Did you speak to anyone other than the patient for history (EMS, parent, family, police, friend...)? What history was obtained from this source @ -No Did you review nursing and triage notes (agree or disagree)? Why? @ -I reviewed and agree with nursing and triage notes Were old charts reviewed (outside hosp., previous admission, EMS record, old EKG, old radiological studies, urgent care reports/EKG's, assisted records)? Report findings @ -No old charts were reviewed Differential Diagnosis (chest pain, altered mental status, abdominal pain women, abdominal pain men, vaginal bleeding, weakness, fever, dyspnea, syncope, headache, dizziness, GI bleed, back pain, seizure, CVA, palpatations, mental health, musculoskeletal)? @ -Differential Abdominal Pain Women: Appendicitis, Cholecystitis, diverticulosis, ischemic bowel, pancreatitis, hepatitis, UTI, gastroenteritis, AAA, incarcerated hernia, bowel obstruction, constipation, inflammatory bowel, hepatitis, peptic ulcer disease, splenic infarction, perforated viscus, vulvitis, ovarian torsion, PID, kidney stone, p lacenta abruption, this is not meant to be an all-inclusive list EKG interpreted by me (3pts min.). @ -As above X-rays interpreted by me (1pt min.). @ -None done CT interpreted by me (1pt min.). @ -None done U/S interpreted by me (1pt. min.). @ -None done What testing was considered but not performed or refused? (CT, X-rays, U/S, labs)? Why? @ -Considered imaging however abdomen is soft and nontender. Patient is feeling better. What meds were considered but not given or refused? Why? @ -None Did you discuss the management of the patient with other professionals (professionals i.e. , PA, SAMPLE SEWER, lab, RT, psych nurse, social media campaign manager, convention worker, teacher, appeals officer, telephonic case manager)? Give summary @ -No Was smoking cessation discussed for >3mins.? @ -No Was critical care preformed (if so, how long)? @ -No Were there social determinants of health that impacted care today? How? (Homeles sness, low income, unemployed, alcoholism, drug addiction, transportation, low edu. Level, literacy, decrease access to med. care, senior living, rehab)? @ -No Was there de-escalation of care discussed even if they declined (Discuss DNR or withdrawal of care, Hospice)? DNR status @ -No What co-morbidities impacted this encounter? (DM, HTN, Smoking, COPD, CAD, Cancer, CVA, ARF, Chemo, Hep., AIDS, mental health diagnosis, sleep apnea, morbid obesity)? @ -None Was patient admitted / discharged? Hospital course, mention meds given and route, prescriptions, significant lab abnormalities, going to OR and other pertinent info. @ -Patient endorsed to me for probable discharge pending medications. Patient is reevaluated at 11:35 AM. Patient is feeling much better. Abdomen is soft and nontender. Patient is updated on results and need for follow-up. Patient will be given prescriptions. Undiagnosed new problem with uncertain prognosis? @ -No Drug Therapy requiring intensive monitoring for toxicity (Heparin, Nitro, Insulin, Cardizem)? @ -No Were any procedures done? @ -No Diagnosis/symptom? @ -Vomiting, diarrhea Acute, or Chronic, or Acute on Chronic? @ -Acute, acute Uncomplicated (without systemic symptoms) or Complicated (systemic symptoms)? @ -Default Side effects of treatment? @ -No Exacerbation, Progression, or Severe Exacerbation? @ -No Poses a threat to life or bodily function? How? (Chest pain, [place], [place], pneumonia, PE, COPD, DKA, ARF, appy, cholecystitis, CVA, Diverticulitis, Homicidal, Suicidal, threat to staff... and all critical care pts) @ -No (Jun Oliveira) - Lab Data Lab Results 12/17/23 12/17/23 12/17/23 Range/Units 06:06 06:06 06:06 WBC 8.9 (3.8-10.6) k/uL RBC 4.94 (3.80-5.40) m/uL Hgb 14.7 (11.4-16.0) gm/dL Hct 44.6 (34.0-46.0) % MCV 90.3 (80.0-100.0) fL MCH 29.8 (25.0-35.0) pg MCHC 33.0 (31.0-37.0) g/dL RDW 12.7 (11.5-15.5) % Plt Count 306 (150-450) k/uL MPV 7.8 Neutrophils % 90 % Lymphocytes % 5 % Monocytes % 4 % Eosinophils % 0 % Basophils % 0 % Neutrophils # 8.0 H (1.3-7.7) k/uL Lymphocytes # 0.4 L (1.0-4.8) k/uL Monocytes # 0.4 (0-1.0) k/uL Eosinophils # 0.0 (0-0.7) k/uL Basophils # 0.0 (0-0.2) k/uL Sodium 139 (137-145) mmol/L Potassium 4.4 (3.5-5.1) mmol/L Chloride 107 (98-107) mmol/L Carbon Dioxide 24 (22-30) mmol/L Anion Gap 8 mmol/L BUN 22 H (7-17) mg/dL Creatinine 0.56 (0.52-1.04) mg/dL Est GFR (CKD-EPI)AfAm >90 (>60 ml/min/1.73 sqM) Est GFR (CKD-EPI)NonAf >90 (>60 ml/min/1.73 sqM) Glucose 141 H (74-99) mg/dL Calcium 8.7 (8.4-10.2) mg/dL Total Bilirubin 0.9 (0.2-1.3) mg/dL AST 23 (14-36) U/L ALT 19 (4-34) U/L Alkaline Phosphatase 65 (38-126) U/L Total Protein 6.9 (6.3-8.2) g/dL Albumin 4.0 (3.5-5.0) g/dL Amylase 47 (30-110) U/L Lipase 54 (23-300) U/L Urine Color Light Yellow Urine Appearance Clear (Clear) Urine pH 6.5 (5.0-8.0) Ur Specific [place] 1.030 (1.001-1.035) Urine Protein Trace H (Negative) Urine Glucose (UA) Negative (Negative) Urine Ketones Negative (Negative) Urine Blood Negative (Negative) Urine Nitrite Negative (Negative) Urine Bilirubin Negative (Negative) Urine Urobilinogen <2.0 (<2.0) mg/dL Ur Leukocyte Esterase Negative (Negative) C. difficile (EIA) Intrp (Negative) 12/17/23 Range/Units 06:06 WBC (3.8-10.6) k/uL RBC (3.80-5.40) m/uL Hgb (11.4-16.0) gm/dL Hct (34.0-46.0) % MCV (80.0-100.0) fL MCH (25.0-35.0) pg MCHC (31.0-37.0) g/dL RDW (11.5-15.5) % Plt Count (150-450) k/uL MPV Neutrophils % % Lymphocytes % % Monocytes % % Eosinophils % % Basophils % % Neutrophils # (1.3-7.7) k/uL Lymphocytes # (1.0-4.8) k/uL Monocytes # (0-1.0) k/uL Eosinophils # (0-0.7) k/uL Basophils # (0-0.2) k/uL Sodium (137-145) mmol/L Potassium (3.5-5.1) mmol/L Chloride (98-107) mmol/L Carbon Dioxide (22-30) mmol/L Anion Gap mmol/L BUN (7-17) mg/dL Creatinine (0.52-1.04) mg/dL Est GFR (CKD-EPI)AfAm (>60 ml/min/1.73 sqM) Est GFR (CKD-EPI)NonAf (>60 ml/min/1.73 sqM) Glucose (74-99) mg/dL Calcium (8.4-10.2) mg/dL Total Bilirubin (0.2-1.3) mg/dL AST (14-36) U/L ALT (4-34) U/L Alkaline Phosphatase (38-126) U/L Total Protein (6.3-8.2) g/dL Albumin (3.5-5.0) g/dL Amylase (30-110) U/L Lipase (23-300) U/L Urine Color Urine Appearance (Clear) Urine pH (5.0-8.0) Ur Specific [place] (1.001-1.035) Urine Protein (Negative) Urine Glucose (UA) (Negative) Urine Ketones (Negative) Urine Blood (Negative) Urine Nitrite (Negative) Urine Bilirubin (Negative) Urine Urobilinogen (<2.0) mg/dL Ur Leukocyte Esterase (Negative) C. difficile (EIA) Intrp Negative (Negative) Disposition <Jose Roberto Olvera - Last Filed: 12/17/23 08:03> Is patient prescribed a controlled substance at d/c from ED?: No <Jun Oliveiar - Last Filed: 12/17/23 11:45> Clinical Impression: Vomiting, Diarrhea Disposition: HOME SELF-CARE Condition: Stable Instructions (If sedation given, give patient instructions): Acute Nausea and Vomiting (ED), Acute Diarrhea (ED) Additional Instructions: Prescriptions have been sent to pharmacy. Please do follow-up with your primary care physician in the next 1 or 2 days for recheck. Return for increased pain, fever, uncontrolled vomiting or diarrhea, worsening symptoms or other concerns. Prescriptions: Dicyclomine [Bentyl] 20 mg PO QID PRN #15 tablet PRN Reason: Pain Ondansetron Odt [Zofran Odt] 4 mg PO Q8HR PRN #10 tab PRN Reason: Nausea Referrals: Sherri Santana MD [Primary Care Provider] - 1-2 days
[2023-12-17] MEDS: SODIUM CHLORIDE 0.9% 1,000 ML IV ONE (09:57)
[2023-12-17] MEDS: MORPHINE SULFATE 4 MG/ML SYRINGE IV STA (09:58)
[2023-12-17 10:33] VITALS: RESP 16; TEMP 98.6
[2023-12-17 11:13] VITALS: BP 147/77; PULSE 89
== END 2023-12-17 11:55 | disposition home or self-care (01) ==
LOC: EC 04:43
DX: R11.2 Nausea with vomiting, unspecified (principal); R19.7 Diarrhea, unspecified; Z91.018 Allergy to other foods; Z91.048 Other nonmedicinal substance allergy status; Z88.5 Allergy status to narcotic agent; Z88.8 Allergy status to other drugs, medicaments and biological substances
CPT/HCPCS: 36415; 80053; 82150; 83690; 85025; 81003; 87324; 99284; 96374; 96375; 96361 ×3; J2270; J2405

== ENCOUNTER 2024-06-05 13:02 | Emergency (ER) | payer MEDICARE, OTHER ==
[2024-06-05 13:57] VITALS: BP 136/80; PULSE 74; RESP 22; TEMP 98.4
--- NOTE | 2024-06-05 15:04 | ED ---
Fever HPI - General Chief Complaint: Upper Respiratory Infection Stated Complaint: poss covid Source: patient, RN notes reviewed, old records reviewed Mode of arrival: ambulatory Limitations: no limitations - History of Present Illness Initial Comments: This is a 48-year-old female to ER for evaluation of possible testing for coronavirus, she has some chest pain and cough MD Complaint: fever -: days(s) Temperature Source: subjective Context: sick contacts Associated Symptoms: rigors, myalgias Treatments Prior to Arrival: none - Related Data Home Medications Medication Instructions Recorded Confirmed HYDROcodone/APAP 7.5-325MG [[place] 1 tab PO BID PRN 02/28/20 05/16/23 7.5-325] Albuterol Inhaler [Ventolin Hfa 2 puff INHALATION RT-QID PRN 10/01/20 05/16/23 Inhaler] Fluticasone Nasal [place] [Flonase 2 spray EA NOSTRIL BID PRN 10/26/21 05/16/23 Nasal [place]] Levocetirizine Dihydrochloride 5 mg PO DAILY 10/26/21 05/16/23 [Xyzal] Sertraline [Zoloft] 50 mg PO DAILY 07/03/22 05/16/23 Solifenacin Succinate [Vesicare] 10 mg PO DAILY 07/03/22 05/16/23 Cholecalciferol [Vitamin D3 (25 25 mcg PO DAILY 02/27/23 05/16/23 Mcg = 1000 Iu)] Famotidine [Pepcid] 20 mg PO HS PRN 02/27/23 05/16/23 Fluticasone Propion/Salmeterol 1 inhalation PO BID 02/27/23 05/16/23 [Advair 250-50 Diskus] Losartan/Hydrochlorothiazide 1 tab PO DAILY 02/27/23 05/16/23 [Losartan-Hctz 100-25 mg Tab] Multivitamins, Thera [Multivitamin 1 tab PO DAILY 02/27/23 05/16/23 (formulary)] Ondansetron [Zofran] 4 mg PO DAILY PRN 02/27/23 05/16/23 Topiramate 25 mg PO BID 02/27/23 05/16/23 Acetaminophen Tab [Tylenol] 650 mg PO Q6H PRN 05/15/23 05/16/23 Previous Rx's Medication Instructions Recorded Nitroglycerin Sl Tabs [Nitrostat] 0.4 mg SUBLINGUAL Q5M PRN #10 tab 05/21/20 Omeprazole [PriLOSEC] 40 mg PO DAILY #14 cap 07/03/22 predniSONE 50 mg PO DAILY #5 tab 07/22/23 Cyclobenzaprine [Flexeril] 10 mg PO TID PRN #15 tab 11/26/23 predniSONE 50 mg PO DAILY #5 tab 11/26/23 Dicyclomine [Bentyl] 20 mg PO QID PRN #15 tablet 12/17/23 Ondansetron Odt [Zofran Odt] 4 mg PO Q8HR PRN #10 tab 12/17/23 Allergies Allergy/AdvReac Type Severity Reaction Status Date / Time cinnamon Allergy Unknown Nausea & Verified 06/05/24 13:57 Vomiting, abd pain peanut Allergy Unknown Nausea & Verified 06/05/24 13:57 Vomiting, abd pain adhesive Allergy Rash/Hives Verified 06/05/24 13:57 cephalexin monohydrate Allergy Dyspnea Verified 06/05/24 13:57 [From Keflex] codeine Allergy Dyspnea Verified 06/05/24 13:57 tramadol Allergy Dyspnea Verified 06/05/24 13:57 Review of Systems ROS Statement: Those systems with pertinent positive or pertinent negative responses have been documented in the HPI. ROS Other: All systems not noted in ROS Statement are negative. Past Medical History Past Medical History: Asthma, GERD/Reflux, Hypertension Additional Past Medical History / Comment(s): Migraines and eye bulging, ventral septal defect, overactive bladder, frequent UTI's, & has had kidney infections, sinus issues, heart murmur History of Any Multi-Drug Resistant Organisms: MRSA Date of last positivie culture/infection: 2012 MDRO Source:: buttocks Past Surgical History: No Surgical Hx Reported Additional Past Surgical History / Comment(s): some sort of surgery to remove wound/sore from buttocks, R knee surgery d/t tears. Past Anesthesia/Blood Transfusion Reactions: No Reported Reaction Past Psychological History: Depression Smoking Status: Never smoker Past Alcohol Use History: None Reported Past Drug Use History: None Reported - Past Family History Mother Family Medical History: GERD/Reflux General Exam Limitations: no limitations General appearance: alert, in no apparent distress Head exam: Present: atraumatic, normocephalic, normal inspection Eye exam: Present: normal appearance, PERRL, EOMI. Absent: scleral icterus, conjunctival injection, periorbital swelling ENT exam: Present: normal exam, mucous membranes moist Neck exam: Present: normal inspection. Absent: tenderness, meningismus, lymphadenopathy Respiratory exam: Present: normal lung sounds bilaterally. Absent: respiratory distress, wheezes, rales, rhonchi, stridor Cardiovascular Exam: Present: regular rate, normal rhythm, normal heart sounds. Absent: systolic murmur, diastolic murmur, rubs, gallop, clicks GI/Abdominal exam: Present: soft, normal bowel sounds. Absent: distended, tenderness, guarding, rebound, rigid Extremities exam: Present: normal inspection, full ROM, normal capillary refill. Absent: tenderness, pedal edema, joint swelling, calf tenderness Back exam: Present: normal inspection Neurological exam: Present: alert, oriented X3, CN II-XII intact Psychiatric exam: Present: normal affect, normal mood Skin exam: Present: warm, dry, intact, normal color. Absent: rash Course Vital Signs 06/05/24 13:53 Temperature 98.4 F Pulse Rate 74 Respiratory 22 Rate Blood Pressure 136/80 O2 Sat by Pulse 98 Oximetry - Reevaluation(s) Reevaluation #1: Medical records reviewed Reevaluation #2: Patient symptoms improved Reevaluation #3: Patient informed of results and questions answered Reevaluation #4: Was pt. sent in by a medical professional or institution (, PA, AUTHORIZATION COORDINATOR, urgent care, hospital, or fdc...) When possible be specific @ -no Did you speak to anyone other than the patient for history (EMS, parent, family, police, friend...)? What history was obtained from this source @ -no Did you review nursing and triage notes (agree or disagree)? Why? @ -agree Are old charts reviewed (outside hosp., previous admission, EMS record, old EKG, old radiological studies, urgent care reports/EKG's, fdc records)? Report findings @ -yes Differential Diagnosis (chest pain, altered mental status, abdominal pain women, abdominal pain men, vaginal bleeding, weakness, fever, dyspnea, syncope, headache, dizziness, GI bleed, back pain, seizure, CVA, palpatations, mental health, musculoskeletal)? @ -prior EKG interpreted by me (3pts min.). @ -no X-rays interpreted by me (1pt min.). @ -yes negative for acute disease CT interpreted by me (1pt min.). @ -no U/S interpreted by me (1pt. min.). @ -no What testing was considered but not performed or refused? (CT, X-rays, U/S, labs)? Why? @ -none What meds were considered but not given or refused? Why? @ -none Did you discuss the management of the patient with other professionals (professionals i.e. DrAimee, PA, AUTHORIZATION COORDINATOR, lab, RT, psych nurse, social worker psychiatric, freight broker agent, teacher, policy officer, adult protective caseworker)? Give summary @ -no Was smoking cessation discussed for >3mins.? @ -no Was critical care preformed (if so, how long)? @ -no Were there social determinants of health that impacted care today? How? (Homelessness, low income, unemployed, alcoholism, drug addiction, transportation, low edu. Level, literacy, decrease access to med. care, longterm, rehab)? @ -none Was there de-escalation of care discussed even if they declined (Discuss DNR or withdrawal of care, Hospice)? DNR status @ -no What co-morbidities impacted this encounter? (DM, HTN, Smoking, COPD, CAD, Cancer, CVA, ARF, Chemo, Hep., AIDS, mental health diagnosis, sleep apnea, morbid obesity)? @ -none Was patient admitted / discharged? Hospital course, mention meds given and route, prescriptions, significant lab abnormalities, going to OR and other pertinent info. @ - 48 female positive for coronavirus can be discharged home Discharge Undiagnosed new problem with uncertain prognosis? @ -no Drug Therapy requiring intensive monitoring for toxicity (Heparin, Nitro, Insulin, Cardizem)? @ -no Were any procedures done? @ -no Diagnosis/symptom? @ -Coronavirus Acute, or Chronic, or Acute on Chronic? @ -Acute Uncomplicated (without systemic symptoms) or Complicated (systemic symptoms)? @ -Complicated Side effects of treatment? @ -no Exacerbation, Progression, or Severe Exacerbation? @ -exacerbation Poses a threat to life or bodily function? How? (Chest pain, [place], [place], pneumonia, PE, COPD, DKA, ARF, appy, cholecystitis, CVA, Diverticulitis, Homicidal, Suicidal, threat to staff... and all critical care pts) @ -yes Reevaluation #5: Differential Fever: Pneumonia, viral URI, endocarditis, myocarditis, pericarditis, otitis, sinusitis, peritonsillar Abscess, retropharyngeal Abscess, epiglottitis, peritonitis, appendicitis, Elsy cystitis, diverticulitis, hepatitis, colitis, UTI, PID, TOA, pyelonephritis, prostatitis, epididymitis, meningitis, encephalitis, pulmonary embolism, CVA, thyroid storm, pancreatitis, adrenal crisis, cavernous sinus thrombosis, this is not meant to be an all-inclusive list. Medical Decision Making - Medical Decision Making 48 female positive for coronavirus can be discharged home - Lab Data Lab Results 06/05/24 Range/Units 14:00 Influenza Type A (PCR) Not Detected (Not Detectd) Influenza Type B (PCR) Not Detected (Not Detectd) RSV (PCR) Not Detected (Not Detectd) SARS-CoV-2 (PCR) Detected A (Not Detectd) - Radiology Data Radiology results: report reviewed (Chest x-ray is negative for acute disease), image reviewed Disposition Clinical Impression: Coronavirus infection Disposition: HOME SELF-CARE Condition: Good Instructions (If sedation given, give patient instructions): Coronavirus Disease 2019 (COVID-19) Is patient prescribed a controlled substance at d/c from ED?: No Referrals: Sherri Santana MD [Primary Care Provider] - 1-2 days Time of Disposition: 15:00
[2024-06-05] MEDS: ONDANSETRON ODT 4 MG TAB PO STA (15:20)
[2024-06-05] MEDS: IBUPROFEN 800 MG TAB PO STA (15:21)
[2024-06-05] MEDS: ACETAMINOPHEN TAB 500 MG TAB PO STA (15:23)
[2024-06-05] MEDS: dexAMETHasone 2 MG TAB PO STA (15:23)
== END 2024-06-05 15:29 | disposition home or self-care (01) ==
LOC: EC 13:02
CPT/HCPCS: 87636; 99284

== ENCOUNTER 2024-08-08 09:18 | Emergency (ER) | payer MEDICARE, OTHER ==
[2024-08-08 09:29] VITALS: RESP 18
--- NOTE | 2024-08-08 10:14 | ED ---
Fall HPI - General Chief Complaint: Fall Stated Complaint: Fall/R Knee Injury Time Seen by Provider: 08/08/24 10:11 Source: patient, RN notes reviewed Mode of arrival: ambulatory Limitations: no limitations - History of Present Illness Initial Comments: 48-year-old female presented the ER for evaluation of a fall. Patient states last night while walking down the stairs her right knee "gave out". She states she was about 3-4 stairs away from the bottom and that she "rolled" down to the bottom of the stairs. She denies head injury, loss of consciousness or blood thinner use. She was reporting most pain to medial right knee. She does report a history of tear injuries which underwent surgical operation years ago by Dr. Parr. Patient denies paresthesias to the extremity. She reports pain with ambulation and bearing weight. She has taken prescribed Kent for pain control. No other complaints or injuries. - Related Data Home Medications Medication Instructions Recorded Confirmed HYDROcodone/APAP 7.5-325MG [Kent 1 tab PO BID PRN 02/28/20 05/16/23 7.5-325] Albuterol Inhaler [Ventolin Hfa 2 puff INHALATION RT-QID PRN 10/01/20 05/16/23 Inhaler] Fluticasone Nasal [place] [Flonase 2 spray EA NOSTRIL BID PRN 10/26/21 05/16/23 Nasal [place]] Levocetirizine Dihydrochloride 5 mg PO DAILY 10/26/21 05/16/23 [Xyzal] Sertraline [Zoloft] 50 mg PO DAILY 07/03/22 05/16/23 Solifenacin Succinate [Vesicare] 10 mg PO DAILY 07/03/22 05/16/23 Cholecalciferol [Vitamin D3 (25 25 mcg PO DAILY 02/27/23 05/16/23 Mcg = 1000 Iu)] Famotidine [Pepcid] 20 mg PO HS PRN 02/27/23 05/16/23 Fluticasone Propion/Salmeterol 1 inhalation PO BID 02/27/23 05/16/23 [Advair 250-50 Diskus] Losartan/Hydrochlorothiazide 1 tab PO DAILY 02/27/23 05/16/23 [Losartan-Hctz 100-25 mg Tab] Multivitamins, Thera [Multivitamin 1 tab PO DAILY 02/27/23 05/16/23 (formulary)] Ondansetron [Zofran] 4 mg PO DAILY PRN 02/27/23 05/16/23 Topiramate 25 mg PO BID 02/27/23 05/16/23 Acetaminophen Tab [Tylenol] 650 mg PO Q6H PRN 05/15/23 05/16/23 Previous Rx's Medication Instructions Recorded Nitroglycerin Sl Tabs [Nitrostat] 0.4 mg SUBLINGUAL Q5M PRN #10 tab 05/21/20 Omeprazole [PriLOSEC] 40 mg PO DAILY #14 cap 07/03/22 predniSONE 50 mg PO DAILY #5 tab 07/22/23 Cyclobenzaprine [Flexeril] 10 mg PO TID PRN #15 tab 11/26/23 predniSONE 50 mg PO DAILY #5 tab 11/26/23 Dicyclomine [Bentyl] 20 mg PO QID PRN #15 tablet 12/17/23 Ondansetron Odt [Zofran Odt] 4 mg PO Q8HR PRN #10 tab 12/17/23 Allergies Allergy/AdvReac Type Severity Reaction Status Date / Time cinnamon Allergy Unknown Nausea & Verified 08/08/24 09:29 Vomiting, abd pain peanut Allergy Unknown Nausea & Verified 08/08/24 09:29 Vomiting, abd pain adhesive Allergy Rash/Hives Verified 08/08/24 09:29 cephalexin monohydrate Allergy Dyspnea Verified 08/08/24 09:29 [From Keflex] codeine Allergy Dyspnea Verified 08/08/24 09:29 tramadol Allergy Dyspnea Verified 08/08/24 09:29 Review of Systems ROS Statement: Those systems with pertinent positive or pertinent negative responses have been documented in the HPI. ROS Other: All systems not noted in ROS Statement are negative. Past Medical History Past Medical History: Asthma, GERD/Reflux, Hypertension Additional Past Medical History / Comment(s): Migraines and eye bulging, ventral septal defect, overactive bladder, frequent UTI's, & has had kidney infections, sinus issues, heart murmur History of Any Multi-Drug Resistant Organisms: MRSA Date of last positivie culture/infection: 2012 MDRO Source:: buttocks Past Surgical History: No Surgical Hx Reported Additional Past Surgical History / Comment(s): some sort of surgery to remove wound/sore from buttocks, R knee surgery d/t tears. Past Anesthesia/Blood Transfusion Reactions: No Reported Reaction Past Psychological History: Depression Smoking Status: Never smoker Past Alcohol Use History: None Reported Past Drug Use History: None Reported - Past Family History Mother Family Medical History: GERD/Reflux General Exam Limitations: no limitations General appearance: alert, in no apparent distress Respiratory exam: Present: normal lung sounds bilaterally. Absent: respiratory distress, wheezes, rales, rhonchi, stridor Cardiovascular Exam: Present: regular rate, normal rhythm, normal heart sounds. Absent: systolic murmur, diastolic murmur, rubs, gallop, clicks Extremities exam: Present: normal inspection, full ROM (with pain), tenderness (Right medial and posterior knee), other (2+ right DP and PT pulse) Neurological exam: Present: alert, oriented X3, CN II-XII intact Skin exam: Present: warm, dry, intact, normal color. Absent: rash Course Vital Signs 08/08/24 08/08/24 09:25 10:44 Temperature 98.1 F 97.9 F Pulse Rate 75 76 Respiratory 18 18 Rate Blood Pressure 141/92 122/77 O2 Sat by Pulse 99 97 Oximetry Medical Decision Making - Medical Decision Making Was pt. sent in by a medical professional or institution (BRITTANY Hyde, CLINICAL TRIAL ASSISTANT, urgent care, hospital, or residential...) When possible be specific @ -No Did you speak to anyone other than the patient for history (EMS, parent, family, police, friend...)? What history was obtained from this source @ -No Did you review nursing and triage notes (agree or disagree)? Why? @ -I reviewed and agree with nursing and triage notes Were old charts reviewed (outside hosp., previous admission, EMS record, old EKG, old radiological studies, urgent care reports/EKG's, residential records)? Report findings @ -No old charts were reviewed Differential Diagnosis (chest pain, altered mental status, abdominal pain women, abdominal pain men, vaginal bleeding, weakness, fever, dyspnea, syncope, headache, dizziness, GI bleed, back pain, seizure, CVA, palpatations, mental health, musculoskeletal)? @ -Differential Musculoskeletal: Muscular strain, contusion, ligament sprain, fracture, arthritis, septic arthritis, bursitis, cellulitis, muscle spasm, nerve compression, DVT, arterial occlusion, herpes zoster, electrolyte abnormality, tumor.... This is not meant to be in all inclusive list EKG interpreted by me (3pts min.). @ -None X-rays interpreted by me (1pt min.). @ -Right knee xray interpreted by me negative for acute fractures or dislocations. CT interpreted by me (1pt min.). @ -None done U/S interpreted by me (1pt. min.). @ -None done What testing was considered but not performed or refused? (CT, X-rays, U/S, labs)? Why? @ -None What meds were considered but not given or refused? Why? @ -Pain medication was considered but not given as patient reports she took a Kent prior to arrival. Did you discuss the management of the patient with other professionals (professionals i.e. , PA, CLINICAL TRIAL ASSISTANT, lab, RT, psych nurse, secondary social studies teacher, tool sharpener, teacher, senior escrow officer, nurse case management)? Give summary @ -No Was smoking cessation discussed for >3mins.? @ -No Was critical care preformed (if so, how long)? @ -No Were there social determinants of health that impacted care today? How? (Homelessness, low income, unemployed, alcoholism, drug addiction, transpo rtation, low edu. Level, literacy, decrease access to med. care, longterm, rehab)? @ -No Was there de-escalation of care discussed even if they declined (Discuss DNR or withdrawal of care, Hospice)? DNR status @ -No What co-morbidities impacted this encounter? (DM, HTN, Smoking, COPD, CAD, Cancer, CVA, ARF, Chemo, Hep., AIDS, mental health diagnosis, sleep apnea, morbid obesity)? @ -Obese Was patient admitted / discharged? Hospital course, mention meds given and route, prescriptions, significant lab abnormalities, going to OR and other pertinent info. @ -Discharged. 48 year old female presenting to the ER for evaluation of right knee pain. Upon evaluation, vitals stable and patient with no signs of acute distress. Patient is neurovascularly intact. Pain to palpation of posterior medial aspect of right knee. Patient has full range of motion. X-rays obtained negative for acute osseous process. Pain believed to be soft tissue in nature. Conservative treatment options discussed. I advised her to follow-up closely with Dr. Parr. Strict return parameters discussed. Patient discharged in stable condition with follow-up to PCP. Patient verbally expressed understanding and agreement with care plan. Case discussed with ED attending, Dr. Pedroza. Undiagnosed new problem with uncertain prognosis? @ -No Drug Therapy requiring intensive monitoring for toxicity (Heparin, Nitro, Insulin, Cardizem)? @ -No Were any procedures done? @ -No Diagnosis/symptom? @ -Knee sprain Acute, or Chronic, or Acute on Chronic? @ -Acute Uncomplicated (without systemic symptoms) or Complicated (systemic symptoms)? @ -Uncomplicated Side effects of treatment? @ -No Exacerbation, Progression, or Severe Exacerbation? @ -No Poses a threat to life or bodily function? How? (Chest pain, [place], [place], pneumonia, PE, COPD, DKA, ARF, appy, cholecystitis, CVA, Diverticulitis, Homicidal, Suicidal, threat to staff... and all critical care pts) @ -No - Radiology Data Radiology results: report reviewed, image reviewed Disposition Clinical Impression: Knee sprain Disposition: HOME SELF-CARE Condition: Stable Instructions (If sedation given, give patient instructions): Knee Sprain (DC), Fall Prevention (ED) Additional Instructions: Follow-up closely with Dr. Parr. Return to the ER for any new or worsening symptoms. Is patient prescribed a controlled substance at d/c from ED?: No Referrals: Nonstaff,Physician [Primary Care Provider] - 1-2 days Reggie Parr MD [STAFF PHYSICIAN] - 1-2 days Time of Disposition: 10:41
--- NOTE | 2024-08-08 10:23 | XR ---
EXAMINATION TYPE: XR knee complete RT DATE OF EXAM: 08/08/2024 10:19 AM COMPARISON: None. CLINICAL INDICATION: Female, 48 years old with history of fall, pain TECHNIQUE: XR knee complete RT XX views were obtained. FINDINGS: There is no acute fracture/dislocation. The tri-compartment joint spaces appear within normal limits . The overlying soft tissue appears unremarkable. IMPRESSION: No acute fracture or dislocation [facility], , 08/08/2024 10:21 AM
[2024-08-08 10:46] VITALS: BP 122/77; PULSE 76; TEMP 97.9
== END 2024-08-08 10:50 | disposition home or self-care (01) ==
LOC: EC 09:18
DX: S83.91XA Sprain of unspecified site of right knee, initial encounter (principal); Z91.010 Allergy to peanuts; Z88.5 Allergy status to narcotic agent; Z88.6 Allergy status to analgesic agent; Z91.09 Other allergy status, other than to drugs and biological substances; Z91.018 Allergy to other foods; Z88.1 Allergy status to other antibiotic agents; W10.9XXA Fall (on) (from) unspecified stairs and steps, initial encounter; Y93.01 Activity, walking, marching and hiking
CPT/HCPCS: 99283

== ENCOUNTER → 2024-08-23 | Outpatient (CLI) | payer MEDICARE, OTHER ==
--- NOTE | 2024-08-23 13:27 | MR ---
EXAMINATION TYPE: MR knee RT wo con DATE OF EXAM: 08/23/2024 12:10 PM COMPARISON: Radiograph 08/15/2024 and MRI 07/30/2020 CLINICAL INDICATION: Female, 48 years old with history of M25.562 PAIN IN LEFT KNEE, Right knee pain x 1 month, prior meniscus tear surgery. TECHNIQUE: Multiplanar, multisequence imaging of the right knee is performed without IV contrast. FINDINGS: The ACL appears chronically torn. No visualized fibers. However, there are focal bone bruises along the posterior lips of the tibial plateau. No discrete fra cture is seen. The PCL, MCL, and LCL complex appear intact. Diminutive posterior horn and body of the medial meniscus in keeping with prior partial meniscectomy. [id number] diffuse thinning of medial compartment articular cartilage volume. The lateral meniscus is intact. Mild diffuse thinning of lateral compartment articular cartilage volu me. Extensor mechanism appears intact. Moderate irregular cartilage thinning along the patellar facets an d mild diffuse thinning along the trochlear facets. Extensor mechanism is intact but with some intermediate signal at both the quadriceps insertion and p roximal patellar tendon. Small joint effusion and a trace leaking Perkins's cyst. Additional mild subcutaneous soft tissue swelling throughout. Normal popliteal artery anatomy. Mild generalized muscle atrophy. Some patchy red marrow hyperplasia which can be seen with anemia, obesity, smoking, and chronic disease. IMPRESSION: 1. Focal bone bruises along the posterior lips of both medial and lateral tibial plateau. Given the c hronically torn ACL, consider an impaction injury relating to knee instability and a pivot shift mec anism. 2. Evidence of interval partial meniscectomy with a diminutive body and posterior horn of the medial meniscus. No new tear is clearly identified. 3. Mild tricompartmental osteoarthrosis with diffuse cartilage thinning. 4. Small knee joint effusion and a trace leaking/ruptured Perkins's cyst. [facility], , 08/23/2024 1:25 PM
== END | disposition home or self-care (01) ==
LOC: RADMRIMAIN 11:19
PROVIDERS: ATTEND Orthopaedic Surgery
DX: M17.11 Unilateral primary osteoarthritis, right knee (principal); M71.22 Synovial cyst of popliteal space [Baker], left knee; M23.206 Derangement of unspecified meniscus due to old tear or injury, right knee

== ENCOUNTER → 2024-11-06 | Outpatient (CLI) | payer MEDICARE, OTHER ==
--- NOTE | 2024-11-07 12:51 | MM ---
Reason for Exam: Screening (asymptomatic). Last mammogram was performed 8 year(s) and 1 month(s) ago. Patient History: Menarche at age 11. First Full-Term at age 20. Patient has history of breast feeding. Patient used Hormonal Contraceptives for 2 years. Maternal aunt had breast cancer, age 30. Last menstrual period: 10/10/2024 Risk Values: Gemini 5 year model risk: 0.9%. NCI Lifetime model risk: 9.1%. Prior Study Comparison: 09/26/2016 Bilateral Diagnostic Mammogram, [facility]. Tissue Density: The breasts are heterogeneously dense, which may obscure small masses. Findings: Analyzed By CAD. Stable 4 mm circumscribed round mass inferiorly in the left breast. There is no suspicious new group of microcalcifications or new suspicious mass in either breast. Overall Assessment: Negative, BI-RAD 1 Management: Screening Mammogram of both breasts in 1 year. . Patient should continue monthly self-breast exams. A clinical breast exam by your physician is recommended on an annual basis. This exam should not preclude additional follow-up of suspicious palpable abnormalities. Note on Gemini scores and lifetime risk: 1. A Gemini score greater than 3% is considered moderate risk. If this is the case, consider specialist referral to assess eligibility for a risk reducing agent. 2. If overall lifetime risk for the development of breast cancer is 20% or higher, the patient may qualify for future screening with alternating mammogram and breast MRI. [facility], , 11/06/2024 2:29 PM. Electronically signed and approved by: Juanjo Conner M.D.
== END | disposition home or self-care (01) ==
LOC: RADMAMWWP 14:02
PROVIDERS: ATTEND Family Medicine
DX: Z12.31 Encounter for screening mammogram for malignant neoplasm of breast (principal); R92.333 Mammographic heterogeneous density, bilateral breasts; Z80.3 Family history of malignant neoplasm of breast; Z92.0 Personal history of contraception
CPT/HCPCS: 77063; 77067

== ENCOUNTER 2024-12-26 19:30 | Emergency (ER) | payer MEDICARE, OTHER ==
[2024-12-26 20:43] VITALS: RESP 20
[2024-12-26 20:44] LABS: Influenza A Not Detected (Not Detectd); Influenza B Not Detected (Not Detectd); RSV Not Detected (Not Detectd)
--- NOTE | 2024-12-26 20:48 | XR ---
EXAMINATION TYPE: XR chest 2V DATE OF EXAM: 12/26/2024 8:12 PM COMPARISON: 07/22/2023 CLINICAL INDICATION: Female, 49 years old with history of upper resp symptoms, wet cough nasal draina ge congestion TECHNIQUE: XR chest 2V view(s) obtained. FINDINGS: The heart size is normal. The pulmonary vasculature is normal. The lungs are clear. IMPRESSION: 1. No acute pulmonary process. [facility], Workstation: [facility], 12/26/2024 8:46 PM
--- NOTE | 2024-12-26 20:53 | ED ---
URI HPI - General Chief Complaint: Upper Respiratory Infection Stated Complaint: Cough Time Seen by Provider: 12/26/24 19:47 Source: patient, RN notes reviewed Mode of arrival: ambulatory Limitations: no limitations - History of Present Illness Initial Comments: This is a 49-year-old female with history including VSD, asthma and GERD presenting for sick symptoms x 8 days. Patient endorses congestion, drainage, wet cough and headache. Also mentions vaginal itching x 2 days. Denies recent sick contacts. Endorses use of DayQuil with minimal relief. Denies fever, chills, fatigue, hemoptysis, chest pain, dyspnea, abdominal pain, N/V/D. MD Complaint: cough, nasal congestion Onset/Timin -: days(s) Associated Symptoms: headache Treatments Prior to Arrival: "cold medicine" - Related Data Home Medications Medication Instructions Recorded Confirmed HYDROcodone/APAP 7.5-325MG [[place] 1 tab PO BID PRN 02/28/20 12/04/24 7.5-325] Albuterol Inhaler [Ventolin Hfa 2 puff INHALATION RT-QID PRN 10/01/20 12/04/24 Inhaler] Fluticasone Nasal [place] [Flonase 2 spray EA NOSTRIL BID PRN 10/26/21 12/04/24 Nasal [place]] Levocetirizine Dihydrochloride 5 mg PO DAILY 10/26/21 12/04/24 [Xyzal] Sertraline [Zoloft] 50 mg PO DAILY 07/03/22 12/04/24 Solifenacin Succinate [Vesicare] 10 mg PO DAILY 07/03/22 12/04/24 Cholecalciferol [Vitamin D3 (25 25 mcg PO DAILY 02/27/23 12/04/24 Mcg = 1000 Iu)] Fluticasone Propion/Salmeterol 1 inhalation PO BID 02/27/23 12/04/24 [Advair 250-50 Diskus] Losartan/Hydrochlorothiazide 1 tab PO DAILY 02/27/23 12/04/24 [Losartan-Hctz 100-25 mg Tab] Multivitamins, Thera [Multivitamin 1 tab PO DAILY 02/27/23 12/04/24 (formulary)] Ondansetron [Zofran] 4 mg PO DAILY PRN 02/27/23 12/04/24 Topiramate 25 mg PO BID 02/27/23 12/04/24 Acetaminophen Tab [Tylenol] 650 mg PO Q6H PRN 05/15/23 12/04/24 Previous Rx's Medication Instructions Recorded Benzonatate [Tessalon Perles] 100 mg PO Q8H PRN #15 capsule 12/26/24 Fluconazole [Diflucan] 150 mg PO ONCE #2 tab 12/26/24 predniSONE 50 mg PO DAILY #5 tab 12/26/24 Allergies Allergy/AdvReac Type Severity Reaction Status Date / Time cinnamon Allergy Unknown Nausea & Verified 12/26/24 20:00 Vomiting, abd pain peanut Allergy Unknown Nausea & Verified 12/26/24 20:00 Vomiting, abd pain adhesive Allergy Rash/Hives Verified 12/26/24 20:00 cephalexin monohydrate Allergy Dyspnea Verified 12/26/24 20:00 [From Keflex] codeine Allergy Dyspnea Verified 12/26/24 20:00 tramadol Allergy Dyspnea Verified 12/26/24 20:00 Review of Systems ROS Statement: Those systems with pertinent positive or pertinent negative responses have been documented in the HPI. ROS Other: All systems not noted in ROS Statement are negative. Past Medical History Past Medical History: Asthma, GERD/Reflux, Hypertension Additional Past Medical History / Comment(s): Migraines and eye bulging, ventral septal defect, overactive bladder, frequent UTI's, & has had kidney infections, sinus issues, heart murmur History of Any Multi-Drug Resistant Organisms: MRSA Date of last positivie culture/infection: 2012 MDRO Source:: buttocks Past Surgical History: No Surgical Hx Reported Additional Past Surgical History / Comment(s): some sort of surgery to remove wound/sore from buttocks, R knee surgery d/t tears. Past Anesthesia/Blood Transfusion Reactions: No Reported Reaction Past Psychological History: Depression Smoking Status: Never smoker Past Alcohol Use History: None Reported Past Drug Use History: None Reported - Past Family History Mother Family Medical History: GERD/Reflux General Exam Limitations: no limitations General appearance: alert, in no apparent distress Head exam: Present: atraumatic, normocephalic, normal inspection Eye exam: Present: normal appearance, PERRL, EOMI. Absent: scleral icterus, conjunctival injection, periorbital swelling ENT exam: Present: normal exam, mucous membranes moist Neck exam: Present: normal inspection. Absent: tenderness, meningismus, lymphadenopathy Respiratory exam: Present: normal lung sounds bilaterally. Absent: respiratory distress, wheezes, rales, rhonchi, stridor, accessory muscle use, decreased breath sounds, prolonged expiratory Cardiovascular Exam: Present: regular rate, normal rhythm, normal heart sounds. Absent: systolic murmur, diastolic murmur, rubs, gallop, clicks GI/Abdominal exam: Present: soft, normal bowel sounds. Absent: distended, tenderness, guarding, rebound, rigid Extremities exam: Present: normal inspection, full ROM, normal capillary refill. Absent: tenderness, pedal edema, joint swelling, calf tenderness Back exam: Present: normal inspection Neurological exam: Present: alert, oriented X3, CN II-XII intact Psychiatric exam: Present: normal affect, normal mood Skin exam: Present: warm, dry, intact, normal color. Absent: rash Course Vital Signs 12/26/24 12/26/24 12/26/24 19:57 20:41 21:54 Temperature 99.2 F 98.1 F Pulse Rate 83 70 Respiratory 16 20 20 Rate Blood Pressure 171/74 141/96 O2 Sat by Pulse 96 99 Oximetry Medical Decision Making - Medical Decision Making Was pt. sent in by a medical professional or institution (, PA, PARTY PLAN SELLING DISTRIBUTOR, urgent care, hospital, or correction...) When possible be specific @ -No Did you speak to anyone other than the patient for history (EMS, parent, family, police, friend...)? What history was obtained from this source @ -No Did you review nursing and triage notes (agree or disagree)? Why? @ -I reviewed and agree with nursing and triage notes Were old charts reviewed (outside hosp., previous admission, EMS record, old EKG, old radiological studies, urgent care reports/EKG's, correction records)? Report findings @ -No old charts were reviewed Differential Diagnosis (chest pain, altered mental status, abdominal pain women, abdominal pain men, vaginal bleeding, weakness, fever, dyspnea, syncope, headache, dizziness, GI bleed, back pain, seizure, CVA, palpatations, mental health, musculoskeletal)? @ -Differential Fever: Pneumonia, viral URI, endocarditis, myocarditis, pericarditis, otitis, sinusitis, peritonsillar Abscess, retropharyngeal Abscess, epiglottitis, peritonitis, appendicitis, Elsy cystitis, diverticulitis, hepatitis, colitis, UTI, PID, TOA, pyelonephritis, prostatitis, epididymitis, meningitis, encephalitis, pulmonary embolism, CVA, thyroid storm, pancreatitis, adrenal cr [place], cavernous sinus thrombosis, this is not meant to be an all-inclusive list. EKG interpreted by me (3pts min.). @ -Not done X-rays interpreted by me (1pt min.). @ -CXR shows no acute cardiopulmonary process CT interpreted by me (1pt min.). @ -None done U/S interpreted by me (1pt. min.). @ -None done What testing was considered but not performed or refused? (CT, X-rays, U/S, labs)? Why? @ -None What meds were considered but not given or refused? Why? @ -None Did you discuss the management of the patient with other professionals (professionals i.e. , PA, PARTY PLAN SELLING DISTRIBUTOR, lab, RT, psych nurse, elementary school social worker, facilities supervisor, teacher, credit risk officer, case folder)? Give summary @ -No Was smoking cessation discussed for >3mins.? @ -No Was critical care preformed (if so, how long)? @ -No Were there social determinants of health that impacted care today? How? (Homelessness, low income, unemployed, alcoholism, drug addiction, transportation, low edu. Level, literacy, decrease access to med. care, prison, rehab)? @ -No Was there de-escalation of care discussed even if they declined (Discuss DNR or withdrawal of care, Hospice)? DNR status @ -No What co-morbidities impacted this encounter? (DM, HTN, Smoking, COPD, CAD, Cancer, CVA, ARF, Chemo, Hep., AIDS, mental health diagnosis, sleep apnea, morbid obesity)? @ -None Was patient admitted / discharged? Hospital course, mention meds given and route, prescriptions, significant lab abnormalities, going to OR and other pertinent info. @ -Cepheid test negative. CXR shows no acute cardiopulmonary process patient provided p.o. Diflucan with additional Diflucan, prednisone and Tessalon Perles sent to patient's pharmacy. Advised supportive care for symptoms including honey and warm fluids for cough and Flonase nasal spray and nasal saline irri gation for nasal congestion. Alternate Tylenol/Motrin every 4 hours for headache/pain. Follow-up with PCP if symptoms persist or worsen. Discussed patient with Dr. Morillo. Undiagnosed new problem with uncertain prognosis? @ -No Drug Therapy requiring intensive monitoring for toxicity (Heparin, Nitro, Insulin, Cardizem)? @ -No Were any procedures done? @ -No Diagnosis/symptom? @ -Upper respiratory infection, vulvovaginal candidiasis Acute, or Chronic, or Acute on Chronic? @ -Acute Uncomplicated (without systemic symptoms) or Complicated (systemic symptoms)? @ -Uncomplicated Side effects of treatment? @ -No Exacerbation, Progression, or Severe Exacerbation? @ -No Poses a threat to life or bodily function? How? (Chest pain, [place], [place], pneumonia, PE, COPD, DKA, ARF, appy, cholecystitis, CVA, Diverticulitis, Homicidal, Suicidal, threat to staff... and all critical care pts) @ -No - Lab Data Lab Results 12/26/24 Range/Units 20:01 Influenza Type A (PCR) Not Detected (Not Detectd) Influenza Type B (PCR) Not Detected (Not Detectd) RSV (PCR) Not Detected (Not Detectd) SARS-CoV-2 (PCR) Not Detected (Not Detectd) Disposition Clinical Impression: Upper respiratory tract infection, Bronchitis, Vulvovaginal candidiasis Disposition: HOME SELF-CARE Condition: Good Instructions (If sedation given, give patient instructions): Upper Respiratory Infection (ED), Acute Bronchitis (ED) Additional Instructions: Honey, warm fluids, humidifier for cough. Nasal saline irrigation and Flonase nasal spray for nasal congestion. Warm salt water gargles for drainage. Mucine x DM 600/30 mg every 12 hours as needed for productive cough. Follow-up with PCP if fever develops or symptoms do not improve or worsen. Prescriptions: Fluconazole [Diflucan] 150 mg PO ONCE #2 tab predniSONE 50 mg PO DAILY #5 tab Benzonatate [Tessalon Perles] 100 mg PO Q8H PRN #15 capsule PRN Reason: Cough Is patient prescribed a controlled substance at d/c from ED?: No Referrals: Fadumo Greene MD [Primary Care Provider] - 1-2 days Time of Disposition: 20:54
[2024-12-26] MEDS: FLUCONAZOLE 150 MG TAB PO STA (21:25)
[2024-12-26 21:55] VITALS: BP 141/96; PULSE 70; TEMP 98.1
== END 2024-12-26 21:55 | disposition home or self-care (01) ==
LOC: EC 19:30
DX: J06.9 Acute upper respiratory infection, unspecified (principal); J40 Bronchitis, not specified as acute or chronic; B37.31 Acute candidiasis of vulva and vagina; Z88.1 Allergy status to other antibiotic agents; Z88.5 Allergy status to narcotic agent; Z91.010 Allergy to peanuts; Z91.09 Other allergy status, other than to drugs and biological substances; Z88.8 Allergy status to other drugs, medicaments and biological substances
CPT/HCPCS: 71046; 87636; 99284

== ENCOUNTER 2025-01-26 15:02 | Emergency (ER) | payer MEDICARE, OTHER ==
[2025-01-26 15:21] VITALS: RESP 18; TEMP 97.9
--- NOTE | 2025-01-26 15:40 | ED ---
General Adult HPI - General Chief complaint: Skin/Abscess/Foreign Body Stated complaint: RASH LEFT SIDE, CHEST AREA Time Seen by Provider: 01/26/25 15:24 Source: patient, RN notes reviewed Mode of arrival: ambulatory Limitations: no limitations - History of Present Illness Initial comments: Patient is a 49-year-old female present to the emergency department with concern with rash. Patient had chest discomfort over the past week. Patient question if there was some minimal rash at start however checked today and noticed more significant rash. Patient has discomfort that increases with touch and movement. No fever. Discomfort is left lateral ribs. - Related Data Home Medications Medication Instructions Recorded Confirmed HYDROcodone/APAP 7.5-325MG [[place] 1 tab PO BID PRN 02/28/20 12/04/24 7.5-325] Albuterol Inhaler [Ventolin Hfa 2 puff INHALATION RT-QID PRN 10/01/20 12/04/24 Inhaler] Fluticasone Nasal [place] [Flonase 2 spray EA NOSTRIL BID PRN 10/26/21 12/04/24 Nasal [place]] Levocetirizine Dihydrochloride 5 mg PO DAILY 10/26/21 12/04/24 [Xyzal] Sertraline [Zoloft] 50 mg PO DAILY 07/03/22 12/04/24 Solifenacin Succinate [Vesicare] 10 mg PO DAILY 07/03/22 12/04/24 Cholecalciferol [Vitamin D3 (25 25 mcg PO DAILY 02/27/23 12/04/24 Mcg = 1000 Iu)] Fluticasone Propion/Salmeterol 1 inhalation PO BID 02/27/23 12/04/24 [Advair 250-50 Diskus] Losartan/Hydrochlorothiazide 1 tab PO DAILY 02/27/23 12/04/24 [Losartan-Hctz 100-25 mg Tab] Multivitamins, Thera [Multivitamin 1 tab PO DAILY 02/27/23 12/04/24 (formulary)] Ondansetron [Zofran] 4 mg PO DAILY PRN 02/27/23 12/04/24 Topiramate 25 mg PO BID 02/27/23 12/04/24 Acetaminophen Tab [Tylenol] 650 mg PO Q6H PRN 05/15/23 12/04/24 Previous Rx's Medication Instructions Recorded Benzonatate [Tessalon Perles] 100 mg PO Q8H PRN #15 capsule 12/26/24 Fluconazole [Diflucan] 150 mg PO ONCE #2 tab 12/26/24 predniSONE 50 mg PO DAILY #5 tab 12/26/24 Acetaminophen Tab [Tylenol] 650 mg PO Q6H PRN #30 tab 01/20/25 Ibuprofen [Motrin] 600 mg PO Q6HR PRN #30 tab 01/20/25 Lidocaine 5% Patch [Lidoderm 5% 1 patch TOPICAL DAILY PRN #30 patch 01/20/25 Patch] Acyclovir [Zovirax] 800 mg PO TID 7 Days #35 tab 01/26/25 Allergies Allergy/AdvReac Type Severity Reaction Status Date / Time cinnamon Allergy Unknown Nausea & Verified 01/26/25 15:21 Vomiting, abd pain peanut Allergy Unknown Nausea & Verified 01/26/25 15:21 Vomiting, abd pain adhesive Allergy Rash/Hives Verified 01/26/25 15:21 cephalexin monohydrate Allergy Dyspnea Verified 01/26/25 15:21 [From Keflex] codeine Allergy Dyspnea Verified 01/26/25 15:21 tramadol Allergy Dyspnea Verified 01/26/25 15:21 Review of Systems ROS Statement: Those systems with pertinent positive or pertinent negative responses have been documented in the HPI. ROS Other: All systems not noted in ROS Statement are negative. Constitutional: Denies: fever Eyes: Denies: eye pain Cardiovascular: Reports: as per HPI Skin: Reports: as per HPI, rash Past Medical History Past Medical History: Asthma, GERD/Reflux, Hypertension Additional Past Medical History / Comment(s): Migraines and eye bulging, ventral septal defect, overactive bladder, frequent UTI's, & has had kidney infections, sinus issues, heart murmur History of Any Multi-Drug Resistant Organisms: MRSA Date of last positivie culture/infection: 2012 MDRO Source:: buttocks Past Surgical History: No Surgical Hx Reported Additional Past Surgical History / Comment(s): some sort of surgery to remove wound/sore from buttocks, R knee surgery d/t tears. Past Anesthesia/Blood Transfusion Reactions: No Reported Reaction Past Psychological History: Depression Smoking Status: Never smoker Past Alcohol Use History: None Reported Past Drug Use History: None Reported - Past Family History Mother Family Medical History: GERD/Reflux General Exam Limitations: no limitations General appearance: alert, in no apparent distress Head exam: Present: normocephalic Eye exam: Present: normal appearance Neck exam: Present: normal inspection Respiratory exam: Present: normal lung sounds bilaterally, chest wall tenderness (Area of rash involvement) Cardiovascular Exam: Present: regular rate, normal rhythm GI/Abdominal exam: Present: soft. Absent: tenderness Extremities exam: Present: normal inspection Neurological exam: Present: alert Psychiatric exam: Present: normal affect, normal mood Skin exam: Present: rash (Patient has several patches mostly left lateral lower ribs with erythematous base. There is some ulcers as well as some new vesicles. 2 patches are approximately 5 x 3 cm. Patient has 2 tiny patches of erythema more towards the back. This does follow dermatome.) Course Vital Signs 01/26/25 15:17 Temperature 97.9 F Pulse Rate 93 Respiratory 18 Rate Blood Pressure 116/77 O2 Sat by Pulse 97 Oximetry Medical Decision Making - Medical Decision Making Was pt. sent in by a medical professional or institution (, PA, WAREHOUSE SHIPPING RECEIVING CLERK, urgent care, hospital, or shelter...) When possible be specific @ -No Did you speak to anyone other than the patient for history (EMS, parent, family, police, friend...)? What history was obtained from this source @ -No Did you review nursing and triage notes (agree or disagree)? Why? @ -I reviewed and agree with nursing and triage notes Were old charts reviewed (outside hosp., previous admission, EMS record, old EKG, old radiological studies, urgent care reports/EKG's, shelter records)? Report findings @ -No old charts were reviewed Differential Diagnosis (chest pain, altered mental status, abdominal pain women, abdominal pain men, vaginal bleeding, weakness, fever, dyspnea, syncope, headache, dizziness, GI bleed, back pain, seizure, CVA, palpatations, mental health, musculoskeletal)? @ -Differential Chest Pain: Stable Angina, Unstable Angina, STEMI, NSTEMI Aortic Dissection, Pneumothorax, Musculoskeletal, Esophageal Spasm GERD, Cholecystitis, Pancreatitis, Zoster, this is not meant to be an all-inclusive list. EKG interpreted by me (3pts min.). @ -As above X-rays interpreted by me (1pt min.). @ -None done CT interpreted by me (1pt min.). @ -None done U/S interpreted by me (1pt. min.). @ -None done What testing was considered but not performed or refused? (CT, X-rays, U/S, labs)? Why? @ -None What meds were considered but not given or refused? Why? @ -None Did you discuss the management of the patient with other professionals (professionals i.e. , PA, WAREHOUSE SHIPPING RECEIVING CLERK, lab, RT, psych nurse, social welfare administrator, newspaper library manager, teacher, chief client officer, case preparer and liner)? Give summary @ -No Was smoking cessation discussed for >3mins.? @ -No Was critical care preformed (if so, how long)? @ -No Were there social determinants of health that impacted care today? How? (Homelessness, low income, unemployed, alcoholism, drug addiction, transport ation, low edu. Level, literacy, decrease access to med. care, halfway, rehab)? @ -No Was there de-escalation of care discussed even if they declined (Discuss DNR or withdrawal of care, Hospice)? DNR status @ -No What co-morbidities impacted this encounter? (DM, HTN, Smoking, COPD, CAD, Cancer, CVA, ARF, Chemo, Hep., AIDS, mental health diagnosis, sleep apnea, morbid obesity)? @ -None Was patient admitted / discharged? Hospital course, mention meds given and route, prescriptions, significant lab abnormalities, going to OR and other pertinent info. @ -Patient presents with painful rash. Assessment consistent with shingles. Patient will be discharged with acyclovir. Patient updated. Undiagnosed new problem with uncertain prognosis? @ -No Drug Therapy requiring intensive monitoring for toxicity (Heparin, Nitro, Insulin, Cardizem)? @ -No Were any procedures done? @ -No Diagnosis/symptom? @ -Shingles Acute, or Chronic, or Acute on Chronic? @ -Acute Uncomplicated (without systemic symptoms) or Complicated (systemic symptoms)? @ -Default Side effects of treatment? @ -No Exacerbation, Progression, or Severe Exacerbation? @ -No Poses a threat to life or bodily function? How? (Chest pain, [place], [place], pneumonia, PE, COPD, DKA, ARF, appy, cholecystitis, CVA, Diverticulitis, Homicidal, Suicidal, threat to staff... and all critical care pts) @ -No Disposition Clinical Impression: Shingles Disposition: HOME SELF-CARE Condition: Stable Instructions (If sedation given, give patient instructions): Shingles (ED) Additional Instructions: Prescription sent to pharmacy. You may try lidocaine patches. [id number] Motrin as needed for discomfort. [id number] Benadryl as needed for itching. Please do follow-up with your primary care physician in the next day or 2 for recheck. Return for increased pain, fever, worsening symptoms or other concerns. Prescriptions: Acyclovir [Zovirax] 800 mg PO TID 7 Days #35 tab Is patient prescribed a controlled substance at d/c from ED?: No Referrals: Adam Day MD [Primary Care Provider] - 1-2 days Time of Disposition: 15:36
[2025-01-26] MEDS: LIDOCAINE 4% PATCH TOPICAL ONE (16:02)
[2025-01-26] MEDS: ACYCLOVIR 800 MG TAB PO STA (16:02)
[2025-01-26 16:12] VITALS: BP 127/70; PULSE 78
== END 2025-01-26 16:12 | disposition home or self-care (01) ==
LOC: EC 15:02
DX: B02.9 Zoster without complications (principal); Z88.6 Allergy status to analgesic agent; Z88.5 Allergy status to narcotic agent; Z91.018 Allergy to other foods; Z88.1 Allergy status to other antibiotic agents; Z91.048 Other nonmedicinal substance allergy status; Z91.010 Allergy to peanuts
CPT/HCPCS: 99282